=== PATIENT | male | born 1950 | race African-American/Black ===

== ENCOUNTER 2019-09-24 12:26 | Outpatient (CLI) | payer MEDICARE, SELFPAY ==
--- NOTE | ~2019-09-24 | US_ITS ---
EXAMINATION: US right upper quadrant EXAM DATE: 09/24/2019 13:34 INDICATION: Right upper quadrant pain, emesis. TECHNIQUE: Multiple grayscale and Doppler images of the abdomen right upper quadrant were obtained (b y a technologist who performed the scan) and subsequently reviewed. There is no prior study for tomi brooks. FINDINGS: The pancreatic head and body are normal in appearance. The pancreatic tail is not visualized. There is echogenic liver parenchyma, hepatic steatosis. There are no focal liver lesions identified. Th ere is no evidence of intrahepatic biliary duct dilation. Portal venous flow was seen in the hepatop edal, normal direction and has normal Doppler waveform. No right-sided hydronephrosis. Common bile duct measures 9 mm, which is normal. The gallbladder wall is normal in thickness, with ex pected amount of distention. No sonographic evidence of pericholecystic fluid. There is a 1.2 cm fo cus causing shadowing in along the bladder neck, cholelithiasis. Technologist performing exam report s patient did not demonstrate sonographic Coy's sign. Please note that this sign is less reliable in patients who have received pain medication. IMPRESSION: 1. Cholelithiasis. 2. Hepatic steatosis. Reviewed, dictated and finalized at location A.
[2019-09-24 12:52] LABS: Basophils Percent Auto 0.3 % (0.2-1.2); Eosinophils Absolute Auto 0.1 K/mm3 (0-0.3); Eosinophils Percent Auto 1.1 % (0-4.4); Hematocrit 44.7 % (42.0-52.0); Hemoglobin 15.1 g/dL (14.0-18.0); Immature Granulocyte Absolute 0.02 K/mm3 (0.00-0.031); Immature Granulocyte Percent A 0.3 % (0-0.5); Lymphocytes Percent Auto 32.5 % (18.3-44.2); Mean Corpuscular HGB Conc 33.8 g/dl (32-36); Mean Corpuscular Hemoglobin 29.4 pg (26-34); Monocytes Absolute Auto 0.5 K/mm3 (0.1-0.6); Monocytes Percent Auto 6.9 % (2.6-8.5); Neutrophils Absolute Auto 4.2 K/mm3 (1.3-6.7); Neutrophils Percent Auto 58.9 % (45.5-73.1); Platelet Count Result 226 k/mm3 (150-375); Red Blood Count 5.14 M/mm3 (4.6-6.20); Red Cell Distribution Width 14.2 % (11.5-14.5); White Blood Count 7.1 K/mm3 (4.5-10.0)
[2019-09-24 13:07] LABS: Amylase 69 U/L (30-110)
[2019-09-24 13:09] LABS: Lipase 22 U/L (23-300)
== END 2019-09-24 12:27 | disposition home or self-care (01) ==
PROVIDERS: PCP Internal Medicine; Visit Provider Internal Medicine
DX: R10.11 Right upper quadrant pain (principal); R11.2 Nausea with vomiting, unspecified; K80.20 Calculus of gallbladder without cholecystitis without obstruction; K76.0 Fatty (change of) liver, not elsewhere classified
CPT/HCPCS: 36415; 76705; 82150; 83690; 85025

== ENCOUNTER 2019-09-28 12:01 | Outpatient (CLI) | payer MEDICARE, SELFPAY ==
--- NOTE | ~2019-09-28 | NM_ITS ---
EXAMINATION: NM hepatobiliary w pharm DATE: 09/28/2019 14:49 INDICATION: Hepatic steatosis. Cholelithiasis. COMPARISON: 11/15/16 TECHNIQUE: 4.8 mCi Tc-99m mebrofenin (Choletec) was administered intravenously. Scintigraphic images of the abdomen were obtained for one hour. 2.4 mcg sincalide (Kinevac) was administered by slow intr avenous infusion, and imaging was continued for 30 minutes. Gallbladder ejection fraction was calcula ju by the technologist. FINDINGS: There is normal clearance of radiotracer from the blood pool. There is homogeneous tracer uptake by t he liver. Activity progresses to the gallbladder and bowel. The gallbladder ejection fraction (GBEF) is 79% (normal 10-90%, but most patient with gallbladder dysfunction have GBEF < 35% which does over lap with the normal range). IMPRESSION: 1. Normal hepatobiliary scan. Reviewed, dictated and finalized at location A.
== END 2019-09-28 12:02 | disposition home or self-care (01) ==
LOC: ANHIMG 12:10
PROVIDERS: PCP Internal Medicine; Visit Provider Internal Medicine
DX: K80.20 Calculus of gallbladder without cholecystitis without obstruction (principal); K76.0 Fatty (change of) liver, not elsewhere classified
CPT/HCPCS: 78227; A9537; J2805

== ENCOUNTER 2019-12-08 12:53 | Outpatient (CLI) | payer MEDICARE, SELFPAY ==
--- NOTE | 2019-12-08 12:55 | ECG_ITS ---
Measurements Intervals [place] Rate: 56 P: 110 TX: 192 QRS: -8 QRSD: 98 T: 191 QT: 435 QTc: 421 Interpretive Statements SINUS BRADYCARDIA T WAVE ABNORMALITY IN LATERAL LEADS- CONSIDER ISCHEMIA BASELINE ARTIFACT- I, II, AVR ABNORMAL ECG Electronically Signed On 12-08-2019 13:20:59 CDT by George William D.O.
[2019-12-08 13:32] LABS: Alanine Aminotransferase 21 U/L (4-50); Albumin Level 4.1 g/dL (3.5-5.1); Alkaline Phosphatase 79 U/L (38-126); Amylase 87 U/L (30-110); Aspartate Amino Transferase 28 U/L (17-59); Bilirubin,Total 0.8 mg/dL (0.2-1.3); Blood Urea Nitrogen 19 mg/dL (9-20); Calcium 9.1 mg/dL (8.4-10.2); Carbon Dioxide 30 mmol/L (22-30); Chloride 105 mmol/L (98-107); Estimated Glomerular Filt Rate 57; Glucose 149 mg/dL (75-110); Lipase 31 U/L (23-300); Potassium 3.6 mmol/L (3.4-5.0); Sodium 139 mmol/L (137-145)
== END 2019-12-08 12:54 | disposition home or self-care (01) ==
LOC: ANHSURGERY 12:55
PROVIDERS: Anesthesiology; PCP Internal Medicine; Visit Provider Surgery
DX: K80.10 Calculus of gallbladder with chronic cholecystitis without obstruction (principal); I10 Essential (primary) hypertension; E11.9 Type 2 diabetes mellitus without complications; Z79.4 Long term (current) use of insulin; R94.31 Abnormal electrocardiogram [ECG] [EKG]
CPT/HCPCS: 36415; 80048; 80076; 82150; 83690; 86850; 86900; 86901; 93005

== ENCOUNTER 2019-12-11 00:14 | Outpatient (CLI) | payer MEDICARE, SELFPAY ==
[2019-12-11 15:54] LABS: SARS-CoV-2 RNA PCR Negative
== END 2019-12-11 00:15 | disposition home or self-care (01) ==
LOC: ANHCOVIDDT 00:14
PROVIDERS: PCP Internal Medicine; Visit Provider Surgery
DX: Z01.812 Encounter for preprocedural laboratory examination (principal); Z20.828 Contact with and (suspected) exposure to other viral communicable diseases
CPT/HCPCS: 87635; C9803; U0003

== ENCOUNTER 2019-12-14 03:23 | Day surgery (SDC) | payer MEDICARE, SELFPAY ==
[2019-12-07 09:49] VITALS: BMI 31.4
[2019-12-14] VITALS (10 sets, daily range): BP systolic 138–167; BP diastolic 63–74; PULSE 43–58; RESP 16–24; TEMP 36.4–36.7; O2SAT 94–100
[2019-12-14] MEDS: LACTATED RINGERS 1,000 ML 30 ML IV CONT ×2 (10:59→13:14)
[2019-12-14 11:13] LABS: Glucose Point of Care 129 (65-105)
[2019-12-14] MEDS: IBUPROFEN IV 800 MG/200 ML 800 MG/200 ML BAG 400 MG IVPB (11:38)
--- NOTE | 2019-12-14 12:01 | WPDANESEPPF ---
Anes - Initial Pre Proc Eval Procedure: Operation Date: 12/14/19 12:00 Proposed Procedures p Laparoscopic Cholecystectomy, Possible Open - Brian Olguin DO Date/Time: 12/14/19 12:01 Surgeon: Brian Olguin DO Pre Op Diagnosis: Symptomatich Cholelithiasis Patient Data Age: 69 Gender: M Height: 6 ft 4 in Weight: 108.5 kg Last Vital Signs Temp 36.7 C 12/14/19 10:45 Pulse 54 L 12/14/19 10:45 Resp 20 12/14/19 10:45 BP 161/63 H 12/14/19 10:45 Pulse Ox 100 12/14/19 10:45 Allergies Allergy/AdvReac Type Severity Reaction Status Date / Time No Known Allergies Allergy Verified 12/14/19 10:27 Home Medications Medication Instructions Recorded Confirmed Type diltiazem HCl 360 mg capsule,24 360 mg PO DAILY #90 cap 05/18/19 12/14/19 Rx hr,extended release aspirin 81 mg tablet,delayed 81 mg PO DAILY 05/19/19 12/07/19 History release vitamin B complex 1 tablet PO DAILY 05/19/19 12/07/19 History blood sugar diagnostic #100 each 06/10/19 11/11/19 Rx indapamide 2.5 mg tablet 2.5 mg PO DAILY #90 tablet 08/10/19 12/07/19 Rx blood sugar diagnostic #100 each 08/20/19 11/11/19 Rx blood-glucose meter #1 each 08/20/19 11/11/19 Rx lancets 31 gauge #100 each 08/20/19 11/11/19 Rx sildenafil (pulm.hypertension) 20 20 mg PO DAILY PRN #100 tablet 08/20/19 12/07/19 Rx mg tablet omega-3 fatty acids 1,000 mg 1,000 mg PO DAILY 09/30/19 12/07/19 History capsule ondansetron 8 mg disintegrating 8 mg PO QID PRN #30 tablet 10/21/19 12/07/19 Rx tablet pantoprazole 40 mg tablet,delayed 40 mg PO QAM #90 tablet 10/21/19 12/07/19 Rx release atorvastatin 40 mg PO DAILY 12/07/19 12/07/19 History insulin degludec [Tresiba 66 unit SUB-Q DAILY 12/07/19 12/14/19 History FlexTouch U-200] lisinopril 40 mg PO DAILY 12/07/19 12/07/19 History metformin 1,000 mg PO QPM 12/07/19 12/07/19 History Laboratory Tests 12/14/19 10:53 POC Capillary Glucose 129 mg/dl H mg/dl (65-105) Patient hx anesthesia problems: none Family hx anesthesia problems: none PMFSH Past Medical History Medical History Abdominal pain Abnormal finding of blood chemistry, unspecified Benign essential hypertension BMI 30.0-30.9,adult BPH (benign prostatic hyperplasia) Diabetes mellitus type 2, insulin dependent Encounter for Medicare annual wellness exam Encounter for routine adult health examination without abnormal findings Encounter for special screening examination for neoplasm of prostate Erectile dysfunction Gout Mixed hyperlipidemia Nausea and vomiting On jail drug therapy Surgical History Surgical History History of carpal tunnel surgery of left wrist History of carpal tunnel surgery of right wrist History of knee replacement both knees right was in 2011 left was in 2013 Family History Family History Sibling Family history of diabetes mellitus in first degree relative Diabetes mellitus Sibling Cancer Other Hypertension Social History Social History Smoking status: Never smoker Alcohol intake: current Substance use: never Gender identity (if verbalized by the patient): Male Anes - Eval Final PreProcedure Day of Procedure 12/14/19 12:01 Patient weight: overweight Heart: regular rate and rhythm Lungs: clear to auscultation Airway: Mallampati scale class II Neurological: alert and oriented Last oral intake: >/= 8 hours ASA classification: III Emergent: no Anesthetic plan: proceed Anesthesia type and monitoring: general ETT and standard monitoring Informed Consent: The patient's anesthetic plan and its attendant risks and benefits were discussed with the patient/family/POA. Questions were solicited and answers provided to the satisfaction of the patien
--- NOTE | 2019-12-14 12:12 | PM.IMHP ---
H&P: HPI History of Present Illness Chief complaint: Symptomatich Cholelithiasis Narrative: Raghavendra Nogueira is a 69 year old male who presents for laparoscopic cholecystectomy. He previously had a severe attack of pain with nausea and vomiting. U/s showed cholelithiasis. Review of Systems Review of Systems: All systems reviewed & are unremarkable except as noted in HPI and below PMFSH Past Medical History Medical History Abdominal pain Abnormal finding of blood chemistry, unspecified Benign essential hypertension BMI 30.0-30.9,adult BPH (benign prostatic hyperplasia) Diabetes mellitus type 2, insulin dependent Encounter for Medicare annual wellness exam Encounter for routine adult health examination without abnormal findings Encounter for special screening examination for neoplasm of prostate Erectile dysfunction Gout Mixed hyperlipidemia Nausea and vomiting On terminal carman drug therapy Surgical History Surgical History History of carpal tunnel surgery of left wrist History of carpal tunnel surgery of right wrist History of knee replacement both knees right was in 2011 left was in 2013 Family History Family History Sibling Family history of diabetes mellitus in first degree relative Diabetes mellitus Sibling Cancer Other Hypertension Social History Social History Smoking status: Never smoker Alcohol intake: current Substance use: never Gender identity (if verbalized by the patient): Male Meds Home Medications and Allergies Home Medications Medication Instructions Recorded Confirmed Type diltiazem HCl 360 mg capsule,24 360 mg PO DAILY #90 cap 05/18/19 12/14/19 Rx hr,extended release aspirin 81 mg tablet,delayed 81 mg PO DAILY 05/19/19 12/07/19 History release vitamin B complex 1 tablet PO DAILY 05/19/19 12/07/19 History blood sugar diagnostic #100 each 06/10/19 11/11/19 Rx indapamide 2.5 mg tablet 2.5 mg PO DAILY #90 tablet 08/10/19 12/07/19 Rx blood sugar diagnostic #100 each 08/20/19 11/11/19 Rx blood-glucose meter #1 each 08/20/19 11/11/19 Rx lancets 31 gauge #100 each 08/20/19 11/11/19 Rx sildenafil (pulm.hypertension) 20 20 mg PO DAILY PRN #100 tablet 08/20/19 12/07/19 Rx mg tablet omega-3 fatty acids 1,000 mg 1,000 mg PO DAILY 09/30/19 12/07/19 History capsule ondansetron 8 mg disintegrating 8 mg PO QID PRN #30 tablet 10/21/19 12/07/19 Rx tablet pantoprazole 40 mg tablet,delayed 40 mg PO QAM #90 tablet 10/21/19 12/07/19 Rx release atorvastatin 40 mg PO DAILY 12/07/19 12/07/19 History insulin degludec [Tresiba 66 unit SUB-Q DAILY 12/07/19 12/14/19 History FlexTouch U-200] lisinopril 40 mg PO DAILY 12/07/19 12/07/19 History metformin 1,000 mg PO QPM 12/07/19 12/07/19 History Allergies Allergy/AdvReac Type Severity Reaction Status Date / Time No Known Allergies Allergy Verified 12/14/19 10:27 Vital Signs Vital Signs - 24 hr 12/14/19 10:45 Temperature 36.7 C Pulse Rate 54 L Respiratory Rate 20 Blood Pressure 161/63 H Pulse Oximetry 100 Exam Const: General: alert; No acute distress Orientation/consciousness: patient oriented x3 Limitations: no limitations HENMT: Head: normocephalic and atraumatic Ears: hearing grossly normal bilaterally General nose exam: Normal external nose present and Normal nares present Mouth: Yes Normal oral and palatal mucosa present and Yes moist mucous membranes Eyes: General: appearance normal, both eyes and all related structures Conjunctivae: conjunctivae normal Sclera: sclerae normal Pupils: Equal, round and reactive pupils present EOM: EOMs intact bilaterally Neck: Neck: normal visual inspection, full ROM, no lymphadenopathy, supple and no JVD Lymphatic: no lymphadenopathy
[2019-12-14] MEDS: ceFAZolin 2 GM/D5W 50 ML 2 GM/50 ML BAG IVPB (12:21)
[2019-12-14] MEDS: BUPIVACAINE/EPINEPHRINE 0.5% 30 ML VIAL INFILTRATE (12:45)
--- NOTE | 2019-12-14 13:33 | PM.PROC ---
Procedure Note - Detailed Date of procedure: 12/14/19 Pre-op diagnosis: Symptomatic Cholelithiasis Post-op diagnosis: same Procedure performed: Laparoscopic Cholecystectomy Description of procedure: Procedure as well as risks, benefits, and alternatives were discussed with patient. Written consent was obtained and placed in chart prior to procedure. The patient was brought back to surgical suite. Patient was placed in supine position on operating table. Time-out was done to confirm patient and procedure. Patient was then intubated by the anesthesia department. Abdomen was prepped and draped in sterile fashion using chlorhexidine prep. 0.5% bupivacaine with epinephrine was infiltrated at each site of incision. A 5 millimeter incision was made near the umbilicus, and a 5 millimeter Optiview trocar was advanced through the abdominal layers under direct visualization. Once inside the abdominal cavity, carbon dioxide was insufflated to create a pneumoperitoneum. The camera was inserted and the abdomen was inspected. No immediate abnormalities were identified. The patient was placed in reverse Trendelenburg position and rotated slightly to the left. An 11 millimeter incision was made in the subxiphoid region, and an 11 millimeter trocar was inserted under direct visualization. Two 5 millimeter incisions were made in the right upper quadrant, and two 5 millimeter trocars were inserted under direct visualization. The gallbladder was identified and grasped at the fundus and retracted superiorly. It was then grasped at the infundibulum retracted laterally. Careful dissection around the neck of the gallbladder was performed using blunt dissection with a [place] grasper and hook electrocautery. The cystic duct was identified, and a window was created behind it. The cystic artery was also identified and a window was created behind it. The critical view of safety was identified, visualizing the cystic duct running directly into the neck of the gallbladder, and the cystic artery running directly into the wall of the gallbladder. A 5 millimeter clip database programmer was then used to place 2 clips proximally and 1 clip distally on both the cystic duct and cystic artery. They were then both transected using endoscopic scissors. Once safely away from the emory hepatitis, the gallbladder was dissected free from the liver bed using hook electrocautery. Hemostasis was achieved along the way. The gallbladder was removed completely and then removed through the subxiphoid port. The liver bed was then inspected. Hemostasis appeared adequate, and our clips appeared secure. The area was gently irrigated with sterile saline. No other abnormalities were seen. The patient was flattened out in bed, and 1 final inspection was made around the abdominal cavity. The subxiphoid port was removed, and a Jose Carlin cone was used to approximate the fascia with an 0-Vicryl simple interrupted suture. The remaining ports were then removed under direct visualization, the camera was removed, and the pneumoperitoneum was released. The skin of the incisions was approximated using 4-0 Monocryl subcuticular sutures. Exofin glue was applied on top. The patient was then awakened from anesthesia, extubated, and transferred to recovery. Anesthesia: GETA and local (0.5% bupivicaine with epi) Surgeon: Brian Olguin DO Estimated blood loss (mL): 5 Drains: No Packing: No Pathology: yes Complications: No immediate complications Condition: stable (Patient tolerated procedure well, and is currently resting comfortably in recovery.) Disposition: same day Findings: Laparoscopic cholecystectomy was performed. The gallbladder appeared dilated and enlarged. The cystic duct appeared normal in size. There were a few pericholecystic adhesions, but otherwise no significant abnormalities. The gallbladder was removed and sent to the lab for pathology.
[2019-12-14 13:40] LABS: Glucose Point of Care 108 (65-105)
== END 2019-12-14 16:40 | disposition home or self-care (01) ==
PROVIDERS: PCP Internal Medicine; Visit Provider Surgery
PROC: 0FT44ZZ Resection of Gallbladder, Percutaneous Endoscopic Approach (ICD-10-PCS; CPT 47562; principal; 2019-12-14 12:00)
DX: K80.10 Calculus of gallbladder with chronic cholecystitis without obstruction (principal); I10 Essential (primary) hypertension; E11.9 Type 2 diabetes mellitus without complications; N40.0 Benign prostatic hyperplasia without lower urinary tract symptoms; M10.9 Gout, unspecified; E78.2 Mixed hyperlipidemia; N52.9 Male erectile dysfunction, unspecified; Z79.4 Long term (current) use of insulin; Z79.84 Long term (current) use of oral hypoglycemic drugs; Z79.82 Long term (current) use of aspirin
CPT/HCPCS: 47562; 88304; A9270; J0131; J0690; J1100; J1741; J2250; J2405; J2704; J2710; J7030; J7120

== ENCOUNTER 2021-05-23 09:49 | Outpatient (CLI) | payer MEDICARE, SELFPAY ==
--- NOTE | 2021-05-23 11:02 | ECG_ITS ---
Measurements Intervals [place] Rate: 60 P: RI: 0 QRS: -9 QRSD: 99 T: 188 QT: 441 QTc: 441 Interpretive Statements SINUS OR ECTOPIC ATRIAL RHYTHM ATRIAL PREMATURE COMPLEXES DELAYED PRECORDIAL R/S TRANSITION ST-T WAVE ABNORMALITY IN LAT/HIGH LAT LEADS- CONSIDER ISCHEMIA BASELINE ARTIFACT- I, II, AVR, AVL, V3-V6 ABNORMAL ECG Electronically Signed On 05-23-2021 11:57:27 BAGGAGE CLERK by George William D.O.
[2021-05-23 11:30] LABS: Basophils Percent Auto 0.5 % (0.2-1.2); Eosinophils Absolute Auto 0.2 K/mm3 (0-0.3); Eosinophils Percent Auto 2.8 % (0-4.4); Hematocrit 43.2 % (42.0-52.0); Hemoglobin 14.4 g/dL (14.0-18.0); Immature Granulocyte Absolute 0.01 K/mm3 (0.00-0.031); Immature Granulocyte Percent A 0.2 % (0-0.5); Lymphocytes Absolute Auto 1.93 K/mm3 (0.9-3.2); Lymphocytes Percent Auto 32.3 % (18.3-44.2); Mean Corpuscular HGB Conc 33.3 g/dl (32-36); Mean Corpuscular Hemoglobin 29.9 pg (26-34); Mean Corpuscular Volume 89.6 fl (80-100); Mean Platelet Volume 11.8 fl (7.4-10.4); Monocytes Absolute Auto 0.5 K/mm3 (0.1-0.6); Neutrophils Absolute Auto 3.3 K/mm3 (1.3-6.7); Neutrophils Percent Auto 55.2 % (45.5-73.1); Platelet Count Result 253 k/mm3 (150-375); Red Blood Count 4.82 M/mm3 (4.6-6.20)
[2021-05-23 11:42] LABS: Partial Thromboplastin Time 25.8 SECONDS (22.3-36.8)
[2021-05-23 11:45] LABS: Alanine Aminotransferase 21 U/L (4-50); Albumin Level 4.4 g/dL (3.5-5.1); Alkaline Phosphatase 77 U/L (38-126); Anion Gap 6 mmol/L (8-16); Aspartate Amino Transferase 27 U/L (17-59); Bilirubin,Total 0.6 mg/dL (0.2-1.3); Blood Urea Nitrogen 22 mg/dL (9-20); Calcium 9.7 mg/dL (8.4-10.2); Carbon Dioxide 33 mmol/L (22-30); Chloride 101 mmol/L (98-107); Estimated Glomerular Filt Rate 56; Glucose 91 mg/dL (65-110); Potassium 3.7 mmol/L (3.4-5.0); Sodium 140 mmol/L (137-145)
== END 2021-05-23 09:50 | disposition home or self-care (01) ==
LOC: ANHSURGERY 09:53
PROVIDERS: PCP Internal Medicine; Visit Provider Urology
DX: C61 Malignant neoplasm of prostate (principal); I10 Essential (primary) hypertension; Z01.818 Encounter for other preprocedural examination
CPT/HCPCS: 36415; 80053; 85025; 85610; 85730; 87077; 87086; 87088; 87186; 93005

== ENCOUNTER 2021-06-06 01:41 | Day surgery (SDC) | payer MEDICARE, SELFPAY ==
[2021-05-23 10:16] VITALS: BP 166/83; PULSE 59; RESP 18; TEMP 37.1; O2SAT 99; BMI 28.5
--- NOTE | 2021-05-23 10:42 | PC.NURSE ---
Report to the Outpatient Waiting Room, entrance under the green pavilion located off [facility], at time ___6:00AM____ on date __06/06/21 . OR Time: ___7:30AM . - You and your visitor will be asked a series of questions to screen for COVID 19 for your protection. - A mask is required within the hospital. - Only one visitor is allowed at this time. Patient visitors will be guided where to wait when not with patient. Preoperative COVID Testing Requirements: No COVID Test needed if: (proof is required; if not received patient will have Rapid Test prior to entry) - Patient has received COVID Vaccine at least 14 days prior to procedure date or - Patient has positive COVID test result within last 90 days of surgery date. COVID Test needed if above criteria is not met If not COVID vaccinated a COVID test must be conducted within 72 hours of surgery and patient is asked to isolate self from time of testing until procedure. You will go to the [facility] for your COVID testing. The [facility] is located at the corner of [address] [facility]. You will only be called if COVID results are positive and your surgeon may reschedule your elective surgery date. Patients may have clear liquids (water, carbonated beverages, clear teas, apple juice) until 3 hours prior to surgery with a maximum of 20 ounces. - No food from midnight until time of surgery 4:30AM - Infants may have breast milk until 4 hours before surgery, infant formula 6 hours prior to surgery. - Children will be allowed to drink immediately following surgery. If applicable, please bring a bottle or sippy cup to assist with drinking. Juice, water, soda, and popsicles are readily available. For infants on formula, please bring formula the day of surgery. Pacifiers are allowed. Take the following medications with a SIP of water the morning of surgery: DILTIAZEM, LEVOTHYROXINE Medications to discontinue per physician ALL VITAMINS/SUPPLEMENTS 3 DAYS PRE-OP, ASPIRIN PER DR GARLAND Date to take last dose Please no make-up, nail arabic, hairspray, perfume, deodorant, or body powder the day of surgery. No jewelry (including any body piercings) or valuables the day of surgery, leave them at home. Please take a shower or bath the night before, or the morning of, surgery with an antibacterial soap. Wear comfortable, loose fitting clothing. Children are encouraged to wear pajamas. - Jewelry must be removed prior to entering the operating room. Rings and piercings that are not removed may be cut off. - The hospital will not accept responsibility for valuables. - Please leave all valuables, including medications, at home the day of surgery. If you are going home after surgery, a licensed shuttle driver must drive you home. - NO public transportation without another adult. - We recommend that an adult stay with you for 24 hours following discharge. - We also recommend that you do not drive, make important decision, drink alcoholic beverages, or take any drugs that were not prescribed by your health care provider for at least 24 hours after your discharge time. For Pediatric surgeries, we recommend two adults accompany the child home (only one inside the building at this time). Follow any additional instructions given to you from your surgeon. Telephone instructions given to ___PATIENT AND WIFE and asked if any additional questions and then verbalized understanding. Patient advised to call surgeon office or pre surgery nurse liaison [phone] if any additional questions.
--- NOTE | 2021-06-05 13:11 | WPDANESEPPF ---
Anes - Initial Pre Proc Eval Procedure: Operation Date: 06/06/21 07:30 Proposed Procedures p Robotic Assisted Nerve Sparing Prostatectomy With Possible Pelvic Lymph Node Dissection - Bennie Gilmore MD Date/Time: 06/05/21 13:11 Surgeon: Bennie Gilmore MD Pre Op Diagnosis: Prostate Cancer Patient Data Age: 71 Gender: M Height: 1.93 m Weight: 106.4 kg Last Vital Signs Temp 37.1 C 05/23/21 10:16 Pulse 59 L 05/23/21 10:16 Resp 18 05/23/21 10:16 BP 166/83 H 05/23/21 10:16 Pulse Ox 99 05/23/21 10:16 Allergies Allergy/AdvReac Type Severity Reaction Status Date / Time No Known Allergies Allergy Verified 06/06/21 07:19 Home Medications Medication Instructions Recorded Confirmed Type aspirin 81 mg tablet,delayed 81 mg PO DAILY 05/19/19 06/06/21 History release vitamin B complex 1 tablet PO DAILY 05/19/19 06/06/21 History blood sugar diagnostic #100 each 08/20/19 06/06/21 Rx blood-glucose meter #1 each 08/20/19 06/06/21 Rx sildenafil (pulm.hypertension) 20 20 mg PO DAILY PRN #100 tablet 08/20/19 06/06/21 Rx mg tablet omega-3 fatty acids 1,000 mg 1,000 mg PO DAILY cap 04/25/20 06/06/21 History capsule pen needle, diabetic 32 gauge x See Rx Instructions .ROUTE 07/25/20 06/06/21 Rx 1/4 .COMPLEX #100 syringe blood sugar diagnostic #100 ea 08/29/20 06/06/21 Rx lancets 30 gauge #100 ea 10/26/20 06/06/21 Rx atorvastatin 40 mg PO QAM 05/23/21 06/06/21 History indapamide 2.5 mg PO QAM 05/23/21 06/06/21 History insulin degludec 66 unit SUB-Q QAM 05/23/21 06/06/21 History levothyroxine 112 mcg PO QAM 05/23/21 06/06/21 History lisinopril 80 mg PO QAM 05/23/21 06/06/21 History metformin 1,000 mg PO HS 05/23/21 06/06/21 History diltiazem HCl 360 mg capsule,24 See Rx Instructions .ROUTE 05/24/21 06/06/21 Rx hr,extended release .COMPLEX #90 capsule cephalexin 500 mg PO Q12H #10 cap 06/07/21 Rx docusate sodium [Colace] 100 mg PO BID #10 cap 06/07/21 Rx hydrocodone-acetaminophen 1 tablet PO Q6H PRN #20 tablet 06/07/21 Rx hyoscyamine sulfate [Anaspaz] 0.125 mg SUBLINGUAL Q4H PRN #20 06/07/21 Rx tablet Patient hx anesthesia problems: none Family hx anesthesia problems: none Results Review: All pre-operative results and documents have been reviewed as part of the pre-operative evaluation. [facility] Past Medical History Medical History (Updated 06/07/21 @ 08:07 by Bennie Gilmore MD) Benign essential hypertension BMI 30.0-30.9,adult BPH (benign prostatic hyperplasia) Cataract CKD (chronic kidney disease) Colon cancer screening Diabetes mellitus type 2, insulin dependent Elevated PSA Encounter for Medicare annual wellness exam Encounter for routine adult health examination with abnormal findings Encounter for routine adult health examination without abnormal findings Encounter for special screening examination for neoplasm of prostate Erectile dysfunction Gout Hypothyroidism (acquired) Mixed hyperlipidemia On intermediate card tender drug therapy Surgical History Surgical History (Reviewed 01/19/21 @ 08:59 by Floridalma Riggs [facility]) History of carpal tunnel surgery of left wrist History of carpal tunnel surgery of right wrist History of knee replacement both knees right was in 2011 left was in 2013 S/P cholecystectomy Family History Family History Sibling Family history of diabetes mellitus in first degree relative Diabetes mellitus Sibling Cancer Other Hypertension Social History Social History Smoking status: Never smoker Alcohol intake: current Substance use: never Living arrangements: with family Additional living arrangements comments: Gender identity (if verbalized by the patient): Male Spiritual care concerns: No Anes - Eval Final PreProcedure Day of Procedure 06/05/21 13:11 Patient weight: overweight
[2021-06-06] VITALS (21 sets, daily range): BP systolic 135–167; BP diastolic 56–84; PULSE 60–73; RESP 8–28; TEMP 36.5–37; O2SAT 95–100
[2021-06-06] MEDS: LACTATED RINGERS 1,000 ML 30 ML IV CONT ×2 (06:52→12:49)
--- NOTE | 2021-06-06 07:05 | WPDHPUPDATE1 ---
History and Physical Update Update Date/Time: 06/06/21 07:05 History and Physical has been reviewed, including an updated exam of the patient. There are NO changes in the patient's condition. Risks, benefits, and alternatives have been discussed and questions answered. Patient agrees to proceed with procedure. Proceed with robotic assist nerve sparing prostatectomy with possible plnd
[2021-06-06 07:08] LABS: Glucose Point of Care 109 mg/dl (65-105)
[2021-06-06] MEDS: ceFAZolin 2 GM/D5W 50 ML 2 GM/50 ML BAG IVPB (07:25)
[2021-06-06] MEDS: ceFAZolin SODIUM 1 GM VIAL IV PUSH (11:29)
--- NOTE | 2021-06-06 12:02 | W.PM.PROC2 ---
Procedure Note - Detailed Date of Procedure 06/06/21 Pre-op Diagnosis Prostate Cancer Post-op Diagnosis same Procedure Performed Robotic assisted nerve-sparing prostatectomy with left pelvic lymph node dissection Surgeon Bennie Gilmore MD Anesthesia general Description of Procedure Patient was taken to the operative suite and correctly identified. Once anesthesia was obtained he was placed in low-lying dorsal lithotomy position and prepped draped usual sterile fashion. Eighteen Uzbek Corral was placed with 20 cc in the balloon. Supraumbilical incision was made and carried down to the rectus fascia. Veress needle was inserted in the abdomen insufflated 15 mmHg pressure. Camera trocar was then placed under direct vision. Remaining trocars were placed in appropriate locations. Patient was placed in steep Trendelenburg position. All pressure points had been padded. The robot was docked. He did have some adhesions along the left colon which were taken down. A posterior approach was then performed. The seminal vesicles and vas were dissected out in their entirety. Plane between the prostate and rectum was developed. Bladder was then taken down. Dorsal venous complex was isolated and ligated using 0 Vicryl in secured to the pubic bone. Bilateral space of Retzius was developed with the puboprostatic ligaments taken down prior to dorsal venous complex isolation. Anterior approach was then performed to expose the bladder neck. He has a large median lobe. The lobe was dissected out in its entirety. The posterior plane was developed and entered exposing the seminal vesicles and vas which were dissected previously. Due to the median lobe his bladder neck is slightly enlarged. We did reconstructed using 2-0 Vicryl in interrupted fashion. This was performed with lateral sutures. Bilateral nerve-sparing was then performed. The pedicles were clipped. Prostate was lifted off the rectum. Dorsal venous complex was transected. Urethra was also transected. Specimen was placed in Endo-Catch bag. Left pelvic lymph node dissection was then performed with the boundaries being the external iliac vein, obturator nerve, Pete's ligament, and the bifurcation of the vessels. Clips were placed proximally and distally. Specimen was also placed in Endo-Catch bag. It was noted that there was some tissue near the right neurovascular bundle which was very close to the prostate which we took off and sent as a separate specimen. All lap count needle count sponge counts were correct at this point. We then went ahead and did a Grant stitch using 0 Vicryl. The urethra was then anastomosed to the bladder neck with good approximation mucosa. V lock suture was used in running fashion. Eighteen Uzbek Corral was placed inflated with 10 cc in the balloon. This was secured. The robot was then undocked. Specimen was brought out through the midline incision. Rectus fascia was closed using 0 Vicryl in a running fashion. Subcuticular stitches were placed. Incisions were anesthetized 1% lidocaine. All lap count needle count sponge counts were again correct. Patient is taken recovery stable condition. Estimated Blood Loss 100 Drains Yes Packing No Pathology yes Complications No immediate complications Condition stable Disposition PACU
[2021-06-06] MEDS: BUPIVACAINE HCL 0.5% PF 30 ML VIAL INFILTRATE (12:10)
--- NOTE | 2021-06-06 12:26 | SUR.OPER ---
urine light pink and clear to PACU.
[2021-06-06 12:43] LABS: Glucose Point of Care 176 mg/dl (65-105)
[2021-06-06] MEDS: fentaNYL CITRATE INJ (*CRX) 100 MCG/2 ML VIAL 25 MCG IV PUSH ×8 (13:17→15:48)
[2021-06-06 17:00] LABS: Glucose Point of Care 212 mg/dl (65-105)
[2021-06-06] MEDS: LACTATED RINGERS 1,000 ML 125 ML IV CONT (17:01)
[2021-06-06] MEDS: metFORMIN HCL 500 MG TABLET 1000 MG PO (17:51)
[2021-06-06] MEDS: HYDROcodone/acetaminophen (*CRX) 5-325 MG TABLET 2 TAB PO (19:55)
[2021-06-06 20:36] LABS: Glucose Point of Care 210 mg/dl (65-105)
[2021-06-07] MEDS: LACTATED RINGERS 1,000 ML 125 ML IV CONT ×2 (02:05→09:57)
[2021-06-07 04:15] VITALS: BP 153/69; PULSE 77; RESP 17; TEMP 35.6; O2SAT 98
[2021-06-07] MEDS: LEVOTHYROXINE SODIUM 112 MCG TABLET PO (05:52)
[2021-06-07] MEDS: HYDROcodone/acetaminophen (*CRX) 5-325 MG TABLET 1 TAB PO (05:52)
[2021-06-07] MEDS: ONDANSETRON INJ 4 MG/2 ML VIAL IV PUSH (05:53)
[2021-06-07 05:54] LABS: Hematocrit 36.9 % (42.0-52.0); Hemoglobin 12.4 g/dL (14.0-18.0)
[2021-06-07 05:59] LABS: Anion Gap 5 mmol/L (8-16); Blood Urea Nitrogen 14 mg/dL (9-20); Calcium 8.3 mg/dL (8.4-10.2); Carbon Dioxide 30 mmol/L (22-30); Chloride 101 mmol/L (98-107); Estimated CRCL calculation 64 ml/min; Estimated Glomerular Filt Rate > 60; Glucose 149 mg/dL (65-110); Potassium 3.6 mmol/L (3.4-5.0); Sodium 136 mmol/L (137-145)
[2021-06-07 07:55] LABS: Glucose Point of Care 110 mg/dl (65-105)
--- NOTE | 2021-06-07 08:06 | WPDUROPN2 ---
Progress Note: A&P Assessment and Plan (1) Prostate cancer: Code(s): C61 - Malignant neoplasm of prostate Status: Acute Assessment and Plan: Postop day 1. From robotic assisted nerve-sparing prostatectomy with left pelvic lymph node dissection. Doing well at this time. Increase activity. Possible discharge home later today with Corral catheter. Will make decision regarding DIONY based on its drainage. Subjective Subjective Date/Time Seen: 06/07/21 08:06 Post Op day: 1 (Robotic assisted nerve-sparing prostatectomy with left pelvic lymph node dissection) Principal diagnosis: Adenocarcinoma prostate Interval history: Overall doing well today without any significant complaints. Did have some mild nausea through the night. He has been afebrile Review of Systems Review of Systems: All systems reviewed & are unremarkable except as noted in HPI and below Exam Const: General: cooperative, comfortable and no acute distress Eyes: General: appearance normal, both eyes and all related structures Resp: Effort & Inspection: normal respiratory effort Cardio: Rate: regular rate Rhythm: regular rhythm GI: GI Palp: Yes Soft to palpation Urinary Catheter: Urinary Catheter: patent and draining and urine clear Objective Data Vital Signs Vital Signs: Vital Signs - 24 hr 06/06/21 12:27 06/06/21 12:30 06/06/21 12:45 Temperature 37.0 C Pulse Rate 70 65 62 Respiratory Rate 25 H 12 28 H Blood Pressure 135/72 159/84 H 167/70 H Pulse Oximetry 100 98 100 06/06/21 13:00 06/06/21 13:15 06/06/21 13:30 Temperature Pulse Rate 61 61 60 Respiratory Rate 14 8 L Blood Pressure 159/70 H 161/65 H 141/61 H Pulse Oximetry 100 100 100 06/06/21 13:48 06/06/21 14:05 06/06/21 14:20 Temperature Pulse Rate 61 62 60 Respiratory Rate 13 12 12 Blood Pressure 139/62 144/59 H 146/63 H Pulse Oximetry 100 100 98 06/06/21 14:37 06/06/21 14:55 06/06/21 15:10 Temperature Pulse Rate 62 62 63 Respiratory Rate 13 12 12 Blood Pressure 146/56 H 148/60 H 145/60 H Pulse Oximetry 100 97 100 06/06/21 15:25 06/06/21 15:40 06/06/21 16:10 Temperature 36.7 C Pulse Rate 64 65 66 Respiratory Rate 12 12 18 Blood Pressure 148/63 H 140/63 141/77 H Pulse Oximetry 99 100 96 06/06/21 16:25 06/06/21 16:55 06/06/21 17:55 Temperature 36.6 C 36.5 C 36.7 C Pulse Rate 62 65 62 Respiratory Rate 18 18 18 Blood Pressure 154/65 H 141/66 H 146/64 H Pulse Oximetry 100 98 97 06/06/21 20:22 06/06/21 23:26 06/07/21 04:15 Temperature 36.6 C 36.8 C 35.6 C L Pulse Rate 60 73 77 Respiratory Rate 17 17 17 Blood Pressure 149/67 H 139/59 L 153/69 H Pulse Oximetry 95 99 98 Intake/Output Intake/Output: Intake & Output 06/04/21 06/05/21 06/06/21 06/07/21 23:59 23:59 23:59 23:59 Intake Total 1150 1497 Output Total 975 970 Balance 175 527 Meds/Results Medications: Active Medications Generic Name Dose Route Start Last Admin Trade Name Freq PRN Reason Stop Dose Admin Hydrocodone Bitart/Acetaminophen 1 tab 06/06/21 15:57 06/07/21 05:52 Hydrocodone/Acetaminophen (*Crx) 5-325 Mg Tablet PO 1 tab Q6H PRN Administration Pain Rated 1-3 Hydrocodone Bitart/Acetaminophen 2 tab 06/06/21 15:57 06/06/21 19:55 Hydrocodone/Acetaminophen (*Crx) 5-325 Mg Tablet PO 2 tab Q6H PRN Administration Pain Rated 4-6 Atorvastatin Calcium 40 mg 06/07/21 09:00 Atorvastatin 40 Mg Tablet PO QAM JONNA Hyoscyamine 0.125 mg 06/06/21 15:57 Hyoscyamine Sulfate 0.125 Mg Tablet SUBLINGUAL Q4H PRN Bladder Spasm Lactated Ringer's 1,000 mls @ 125 mls/hr 06/06/21 15:57 06/07/21 05:48 Lr - Lactated Ringers Iv IV CONT 125 mls/hr .Q8H JONNA Infusion Indapamide 2.5 mg 06/07/21 09:00 Indapamide 2.5 Mg Tablet PO QAM JONNA Insulin Glargine 66 units 06/07/21 09:00 Insulin Glargine (*Bkc) 100 Units/Ml SUB-Q 07/07/21 08:59 QAM [facility] Ketorolac Tromethamine 15 mg 05/10
[2021-06-07] MEDS: INSULIN GLARGINE (*BKC) 100 UNITS/ML 66 UNITS SUB-Q (09:55)
[2021-06-07] MEDS: lisinopriL 20 MG TABLET 80 MG PO (09:56)
[2021-06-07] MEDS: levoFLOXacin 500 MG TABLET PO (09:56)
[2021-06-07] MEDS: ATORVASTATIN 40 MG TABLET PO (09:57)
[2021-06-07] MEDS: INDAPAMIDE 2.5 MG TABLET PO (09:57)
[2021-06-07] MEDS: HYDROcodone/acetaminophen (*CRX) 5-325 MG TABLET 2 TAB PO (10:14)
[2021-06-07 11:41] LABS: Glucose Point of Care 180 mg/dl (65-105)
[2021-06-07 14:00] VITALS: BP 159/76; PULSE 79; RESP 16; TEMP 36.7; O2SAT 99
== END 2021-06-07 16:35 | disposition home or self-care (01) ==
LOC: ANHSURGERY 06:05 → ANH3MED 16:27
PROVIDERS: PCP Internal Medicine; Visit Provider Urology
PROC: 0VT04ZZ Resection of Prostate, Percutaneous Endoscopic Approach (ICD-10-PCS; CPT 55867; principal; 2021-06-06 07:30)
DX: C61 Malignant neoplasm of prostate (principal); I12.9 Hypertensive chronic kidney disease with stage 1 through stage 4 chronic kidney disease, or unspecified chronic kidney disease; E11.22 Type 2 diabetes mellitus with diabetic chronic kidney disease; N18.9 Chronic kidney disease, unspecified; M10.9 Gout, unspecified; E03.9 Hypothyroidism, unspecified; E78.2 Mixed hyperlipidemia; Z79.82 Long term (current) use of aspirin; Z79.4 Long term (current) use of insulin; Z79.84 Long term (current) use of oral hypoglycemic drugs
CPT/HCPCS: 55866; 38571; S2900; 36415; 80048; 80053; 82948; 85014; 85018; 85025; 85610; 85730; 86850; 86900; 86901; 87077; 87086; 87088; 87186; 88305; 88307; 88309; 93005; A9270; J0330; J0690; J1815; J2250; J2270; J2405; J2704; J2710; J3010; J7030; J7120; Q9968

== ENCOUNTER 2021-06-14 10:34 | Outpatient (CLI) | payer MEDICARE, SELFPAY ==
--- NOTE | ~2021-06-14 | XR_ITS ---
EXAMINATION: XR cystogram DATE: 06/14/2021 11:14 INDICATION: Prostate cancer TECHNIQUE: Water-soluble contrast was gravity-infused through the patient's Corral catheter. Multiple fluoroscopic images were obtained. Fluoroscopy exposure time was 1.5 minutes. The DAP for this proced ure was 26.921 Gycm2. COMPARISON: None. FINDINGS: There is a small amount of extravasated contrast near the bladder base, likely extraperiton eal bladder leak. Phleboliths are noted in the pelvis. IMPRESSION: 1. Small bladder leak. Reviewed, dictated and finalized at location A. SS ANALYST IMPRESSION: 1. Small bladder leak.
== END 2021-06-14 10:35 | disposition home or self-care (01) ==
PROVIDERS: PCP Internal Medicine; Visit Provider Urology
DX: C61 Malignant neoplasm of prostate (principal); R32 Unspecified urinary incontinence
CPT/HCPCS: 51600; 74430; Q9967

== ENCOUNTER 2021-06-15 12:34 | Outpatient (CLI) | payer MEDICARE, SELFPAY ==
--- NOTE | ~2021-06-15 | XR_ITS ---
EXAMINATION: XR ankle RT 2V DATE: 06/15/2021 13:16 INDICATION: Right ankle pain. Gout. TECHNIQUE: 2 views of right ankle were obtained. COMPARISON: None. FINDINGS: Bone alignment is normal. No fracture. There is mild ankle and midfoot osteoarthritis. Ther e are enthesophytes at the posterior and plantar aspects of calcaneal tuberosity. There is ankle soft tissue swelling. IMPRESSION: 1. Mild polyarticular osteoarthritis. No evidence of inflammatory arthropathy. Reviewed, dictated and finalized at location A. MANAGER
--- NOTE | ~2021-06-15 | XR_ITS ---
EXAMINATION: XR foot RT 2V DATE: 06/15/2021 13:16 INDICATION: Right foot pain. Gout. TECHNIQUE: 2 views of right foot were obtained. COMPARISON: None. FINDINGS: Bone alignment is normal. There is a fracture of diaphysis of fourth proximal phalanx. Ther e is mild osteoarthritis of some the midfoot and interphalangeal joints. There is erosion of the late ral aspect of head of first proximal phalanx. There are enthesophytes at the posterior and plantar as pects of calcaneal tuberosity. IMPRESSION: 1. Age-indeterminate fracture of diaphysis of fourth proximal phalanx. 2. Mild polyarticular osteoarthritis. 3. Erosion of the lateral aspect of head of first proximal phalanx, which may be seen with gout. Reviewed, dictated and finalized at location A. HITE PAN DRIER TENDER IMPRESSION: 1. Age-indeterminate fracture of diaphysis of fourth proximal phalanx. 2. Mild polyarticular osteoarthritis. 3. Erosion of the lateral aspect of head of first proximal phalanx, which may b e seen with gout.
[2021-06-15 13:55] LABS: CRP 4.8 mg/dL (<1.0); Uric Acid 10.9 mg/dL (3.5-8.5)
[2021-06-15 14:43] LABS: Erythrocyte Sedimentation Rate 89 mm/hr (0-20)
== END 2021-06-15 12:35 | disposition home or self-care (01) ==
LOC: ANHIMG 12:38
PROVIDERS: PCP Internal Medicine; Visit Provider Internal Medicine
DX: M10.9 Gout, unspecified (principal); M19.071 Primary osteoarthritis, right ankle and foot
CPT/HCPCS: 36415; 73600; 73620; 84550; 85652; 86140

== ENCOUNTER 2021-06-22 09:35 | Outpatient (CLI) | payer MEDICARE, SELFPAY ==
--- NOTE | ~2021-06-22 | XR_ITS ---
EXAMINATION: XR cystogram DATE: 06/22/2021 10:32 INDICATION: Prostate cancer status post prostatectomy, prior bladder leak TECHNIQUE: Water-soluble contrast was gravity-infused through the patient's Corral catheter. Multiple fluoroscopic images were obtained. Fluoroscopy exposure time was 1.1 minutes. The DAP for this proced ure was 39.857 Gycm2. COMPARISON: 06/14/2016 FINDINGS: No bladder leak is identified. Trabeculation of the bladder wall is likely related to chron ic outlet obstruction. Phleboliths are noted in the pelvis. IMPRESSION: 1. No bladder leak identified. Reviewed, dictated and finalized at location A. TRAPPER
== END 2021-06-22 09:36 | disposition home or self-care (01) ==
LOC: ANHIMG 09:39
PROVIDERS: PCP Internal Medicine; Visit Provider Urology
DX: C61 Malignant neoplasm of prostate (principal)
CPT/HCPCS: 51600; 74430; Q9967

== ENCOUNTER 2021-08-25 11:39 | Outpatient (CLI) | payer MEDICARE, SELFPAY ==
[2021-08-25 12:58] LABS: Anion Gap 7 mmol/L (8-16); Blood Urea Nitrogen 18 mg/dL (9-20); Calcium 9.1 mg/dL (8.4-10.2); Carbon Dioxide 31 mmol/L (22-30); Chloride 105 mmol/L (98-107); Estimated Glomerular Filt Rate 56; Glucose 127 mg/dL (65-110); Potassium 3.5 mmol/L (3.4-5.0); Sodium 143 mmol/L (137-145)
== END 2021-08-25 11:40 | disposition home or self-care (01) ==
LOC: ANHLAB 11:41
PROVIDERS: PCP Internal Medicine; Visit Provider Internal Medicine
DX: I10 Essential (primary) hypertension (principal); Z79.899 Other long term (current) drug therapy
CPT/HCPCS: 36415; 80048

== ENCOUNTER 2021-09-13 12:15 | Outpatient (CLI) | payer MEDICARE, SELFPAY ==
--- NOTE | ~2021-09-13 | XR_ITS ---
EXAMINATION: XR chest 2V EXAM DATE: 09/13/2021 12:39 INDICATION: R06.2 - Wheezing, cough x 1 wk; hx of HTN, prostate CA 05/28 . TECHNIQUE: Frontal and lateral projections of the chest obtained and reviewed. There is no prior hilario dy for comparison. FINDINGS: The lungs are clear. There are no pleural effusions. The cardiomediastinal silhouette is within normal limits. There is no pneumothorax suspected. The bones and soft tissues are unremarkab le. There are cholecystectomy clips. IMPRESSION: No acute cardiopulmonary findings. Reviewed, dictated and finalized at location A. PMENT LEAD
== END 2021-09-13 12:16 | disposition home or self-care (01) ==
LOC: ANHIMG 12:19
PROVIDERS: PCP Internal Medicine; Visit Provider Internal Medicine
DX: R06.2 Wheezing (principal); R05.9 Cough, unspecified; R06.00 Dyspnea, unspecified
CPT/HCPCS: 71046

== ENCOUNTER 2021-09-18 06:06 | Inpatient (IN) | payer MEDICARE, SELFPAY ==
[2021-09-18] VITALS (17 sets, daily range): BP systolic 121–189; BP diastolic 82–131; PULSE 37–99; RESP 12–22; TEMP 35.7–37.3; O2SAT 94–100; BMI 25.8; BMI 28.3
--- NOTE | 2021-09-18 | ECHO_ITS ---
Patient Info Name: Raghavendra Nogueira Age: 71 years : 1950 Gender: Male Ht: 76 in Wt: 232 lbs BSA: 2.39 m2 HR: 74 bpm BP: 121 / 95 mmHg Heart Rhythm: Sinus Rhythm Technical Quality: Fair Exam Date: 09/18/2021 3:48 PM Exam Location: [facility] Pulmonary Patient Status: Inpatient Admit Date: 09/18/2021 Staff Ordering Physician: Anibal Amaya MD Professional Athletes Coach: Nhi Yancey RDCS Attending Provider: Rishi Cortez MD Referring Physician: Jose Luis SHERIDAN; Exam Type: CA echo doppler color flow Study Info Indications - CHF Complete two-dimensional, color flow and Doppler transthoracic echocardiogram is performed. Summary 1. Complete two-dimensional, color flow and Doppler transthoracic echocardiogram is performed. 2. Left ventricular chamber dimension is moderately enlarged. 3. Left ventricular systolic function is severely reduced, estimated at 25-30%. 4. There is moderate concentric increased left ventricular wall thickness. 5. The posterior segment is akinetic. 6. Left atrial chamber dimension is moderately enlarged. 7. The aortic valve is normal. 8. There is mild mitral valve regurgitation. Left Ventricle Left ventricular chamber dimension is moderately enlarged. Left ventricular systolic function is severely reduced, estimated at 25-30%. There is moderate concentric increased left ventricular wall thickness. The left ventricular diastolic function is grade I diastolic dysfunction. The posterior segment is akinetic. Right Ventricle Right ventricular chamber dimension is normal. Left Atria Left atrial chamber dimension is moderately enlarged. Right Atria Right atrial chamber dimension is normal. Aortic Valve The aortic valve is normal. Pulmonic Valve The pulmonic valve is normal. Mitral Valve The mitral valve has normal leaflets. There is mild mitral valve regurgitation. Tricuspid Valve The tricuspid valve leaflets are normal. Moderate pulmonary hypertension, estimated pulmonary arterial systolic pressure is 62 mmHg. Pericardium/Pleural The pericardium appears normal. Aorta The aortic root size at the sinus of Valsalva is normal. Left Ventricular Outflow Tract Name Value Normal LVOT 2D LVOT Diameter 2.0 cm LVOT Doppler LVOT Peak Gradient 2 mmHg LVOT Mean Gradient 1 mmHg LVOT VTI 14 cm LVOT VTI/AV VTI Ratio 0.7 LVOT Stroke Volume 42 ml LVOT CO 2.3 l/min LVOT CI 1.0 l/min/m2 Pulmonic Valve Name Value Normal RVOT Doppler RVOT Peak Gradient 1 mmHg PV Doppler PV Peak Gradient
--- NOTE | ~2021-09-18 | XR_ITS ---
EXAMINATION: XR chest 2V DATE: 09/18/2021 06:36 INDICATION: Cough and shortness of breath TECHNIQUE: frontal and lateral views of the chest were obtained. COMPARISON: Chest radiograph dated 09/13/2021 FINDINGS: Small bilateral pleural effusions at the posterior sulci with associated mild posterior bibasilar ate lectasis versus less likely pneumonia. No dominant or edema or pneumothorax. The cardiomediastinal si lhouette is normal. Calcified AP window lymph node consistent with old granulomatous disease. IMPRESSION: 1. Small bilateral pleural effusions with associated mild bibasilar atelectasis versus less likely pn eumonia. Reviewed, dictated and finalized at location A. IMPRESSION: 1. Small bilateral pleural effusions with associated mild bibasilar atelectasis versus less likely pneumonia.
--- NOTE | ~2021-09-18 | CT_ITS ---
EXAMINATION: CTA chest PE protocol DATE: 09/18/2021 08:49 INDICATION: Chest pain. TECHNIQUE: Computed tomography angiography (CTA) of the chest was performed with 100 mL Omnipaque-350 intravenous contrast timed to evaluate the pulmonary arteries. Coronal maximum intensity projection 3D-reconstructions were created by the technologist. Automated exposure control and iterative reconst ruction technique were employed. The dose-length product was 662.83 mGy-cm. COMPARISON: CT abdomen and pelvis 11/15/2016 FINDINGS: There is smooth septal thickening in the lungs, consistent with mild pulmonary edema. There is mild dependent atelectasis bilaterally. There is mild emphysema. There are small pleural effusion s. There is left atrial and left ventricular enlargement of the heart. No pericardial effusion. There is no pulmonary embolus. A calcified mediastinal lymph node is consistent with old granulomatous dis ease. There are changes of cholecystectomy. There is 11 mm cyst in left kidney. There is mild thoraci c spondylosis. IMPRESSION: 1. No pulmonary embolus. 2. Mild pulmonary edema. 3. Small pleural effusions. 4. Mild emphysema. 5. Left atrial and left ventricular enlargement of the heart. Reviewed, dictated and finalized at location A.
--- NOTE | 2021-09-18 06:11 | ECG_ITS ---
Measurements Intervals [place] Rate: 68 P: [place]: 0 QRS: 4 QRSD: 98 T: 196 QT: 418 QTc: 447 Interpretive Statements POOR QUALITY ECG SINUS RHYTHM WITH SINUS ARRHYTHMIA MODERATE T-WAVE ABNORMALITY, CONSIDER LATERAL ISCHEMIA [-0.1+ mV T-WAVE IN I/aVL/V5/V6] COMPARED TO ECG 05/23/2021 11:18:56 MORE BASELINE ARTIFACT NO OTHER OBVIOUS CHANGES Electronically Signed On 09-18-2021 14:20:34 CDT by Anibal Amaya M.D.
[2021-09-18 06:29] LABS: Basophils Percent Auto 0.7 % (0.2-1.2); Eosinophils Absolute Auto 0.2 K/mm3 (0-0.3); Eosinophils Percent Auto 3.3 % (0-4.4); Hematocrit 40.4 % (42.0-52.0); Hemoglobin 13.8 g/dL (14.0-18.0); Immature Granulocyte Absolute 0.01 K/mm3 (0.00-0.031); Immature Granulocyte Percent A 0.2 % (0-0.5); Lymphocytes Absolute Auto 1.77 K/mm3 (0.9-3.2); Lymphocytes Percent Auto 30.4 % (18.3-44.2); Mean Corpuscular HGB Conc 34.2 g/dl (32-36); Mean Corpuscular Hemoglobin 29.5 pg (26-34); Mean Corpuscular Volume 86.3 fl (80-100); Mean Platelet Volume 11.5 fl (7.4-10.4); Monocytes Absolute Auto 0.6 K/mm3 (0.1-0.6); Monocytes Percent Auto 9.6 % (2.6-8.5); Neutrophils Absolute Auto 3.3 K/mm3 (1.3-6.7); Neutrophils Percent Auto 55.8 % (45.5-73.1); Platelet Count Result 197 k/mm3 (150-375); Red Blood Count 4.68 M/mm3 (4.6-6.20); Red Cell Distribution Width 15.1 % (11.5-14.5); White Blood Count 5.8 K/mm3 (4.5-10.0)
[2021-09-18 06:37] LABS: Alanine Aminotransferase 19 U/L (4-50); Albumin Level 4.1 g/dL (3.5-5.1); Alkaline Phosphatase 71 U/L (38-126); Anion Gap 6 mmol/L (8-16); Aspartate Amino Transferase 26 U/L (17-59); Bilirubin,Total 0.7 mg/dL (0.2-1.3); Blood Urea Nitrogen 27 mg/dL (9-20); Calcium 8.8 mg/dL (8.4-10.2); Carbon Dioxide 27 mmol/L (22-30); Chloride 109 mmol/L (98-107); Estimated CRCL calculation 48 ml/min; Estimated Glomerular Filt Rate 52; Glucose 140 mg/dL (65-110); Potassium 3.3 mmol/L (3.4-5.0); Sodium 142 mmol/L (137-145)
[2021-09-18 07:04] LABS: Lipase 45 U/L (23-300)
[2021-09-18 07:19] LABS: NT Pro B Type Natriuretic Pept 2530 pg/mL (5-100); Troponin I 0.066 ng/mL (0.000-0.034)
[2021-09-18 07:22] LABS: Prothrombin Time 12.7 Seconds (11.1-14.7)
[2021-09-18 07:25] LABS: Partial Thromboplastin Time 24.1 SECONDS (22.3-36.8)
[2021-09-18] MEDS: FUROSEMIDE INJ 40 MG/4 ML VIAL IV PUSH ×2 (07:43→20:04)
[2021-09-18] MEDS: POTASSIUM CHLORIDE 20 MEQ TABLET 40 MEQ PO ×2 (07:44→22:44)
[2021-09-18] MEDS: ASPIRIN 81 MG CHEWABLE TABLET 324 MG PO (07:44)
[2021-09-18] MEDS: NITROGLYCERIN OINTMENT 1 INCH DOSE TRANSDERM (07:45)
--- NOTE | 2021-09-18 08:08 | ED.SOB ---
HPI - SOB/Dyspnea General Chief Complaint: Shortness of Breath/Dyspnea Stated Complaint: sob and cough x 1.5 weeks Time Seen by Provider: 09/18/21 07:01 Source: patient and RN notes reviewed Mode of arrival: ambulatory Limitations: no limitations History of Present Illness HPI Narrative: This is a 71 year old male history of DM,hypertension, hypothyroidism, prostate CA who presents for evaluation of shortness of breath. He has been having shortness of breath for 2 weeks. He states it is worse with laying flat. He also reports constant left anterior chest pain. He has associated dry cough, nasal congestion. He is currently being evaluated by his PCP for his symptoms but he was having continued shortness of breath. He denies leg swelling, fever, chills, nausea, vomiting or abdominal pain . He denies history of heart disease, CHF, or PE. Related Data Home Medications Medication Instructions Recorded Confirmed aspirin 81 mg tablet,delayed 81 mg PO DAILY 05/19/19 09/18/21 release vitamin B complex 1 tablet PO DAILY 05/19/19 09/18/21 omega-3 fatty acids 1,000 mg 1,000 mg PO DAILY cap 04/25/20 09/18/21 capsule levothyroxine 112 mcg PO QAM 05/23/21 09/18/21 lisinopril 80 mg PO QAM 05/23/21 09/18/21 cholecalciferol (vitamin D3) 50 50 mcg PO DAILY 07/03/21 09/18/21 mcg (2,000 unit) capsule atorvastatin 40 mg PO QAM 09/18/21 09/18/21 diltiazem HCl 360 mg PO DAILY 09/18/21 09/18/21 Allergies Allergy/AdvReac Type Severity Reaction Status Date / Time No Known Allergies Allergy Verified 09/18/21 06:14 Review of Systems Review of Systems: All systems reviewed & are unremarkable except as noted in HPI and below Constitutional: Constitutional: Denies chills and Denies fever(s) Cardiovascular: Cardiovascular: Reports chest pain and Denies radiating jaw, neck or arm pain Respiratory: Respiratory: Reports cough and Reports dyspnea Gastrointestinal: Gastrointestinal: Denies abdominal pain, Denies nausea and Denies vomiting Neurologic: Denies headache(s) [facility] Past Medical History Medical History (Updated 09/18/21 @ 18:28 by Francoise Perez MD) Benign essential hypertension BPH (benign prostatic hyperplasia) Cataract CKD (chronic kidney disease) Diabetes mellitus type 2, insulin dependent Elevated PSA Erectile dysfunction Gout History of prostate cancer Hypothyroidism (acquired) Mixed hyperlipidemia Vitamin D deficiency Surgical History Surgical History (Updated 09/18/21 @ 12:56 by Rishi Cortez MD) History of carpal tunnel surgery of left wrist History of carpal tunnel surgery of right wrist History of knee replacement both knees right was in 2011 left was in 2013 Hx of prostatectomy S/P cholecystectomy Family History Family History Sibling Family history of diabetes mellitus in first degree relative Diabetes mellitus Sibling Cancer Other Hypertension Social History Social History (Updated 09/18/21 @ 12:57 by Rishi Cortez MD) Social History: Patient lives with his . He drinks 2 alcoholic drinks per month on average. Lifelong nonsmoker. No history of drug use. Full code. He nominates his to be the individual would make medical decisions for him if he is unable. Smoking status: Never smoker Alcohol intake: current Drinks per week: 1 Substance use: never Additional living arrangements comments: Gender identity (if verbalized by the patient): Male Spiritual care concerns: No Exam Const: General: no acute distress and alert Nutritional Appearance: obese Orientation/consciousness: patient oriented x3 Eyes: EOM: EOMs intact bilaterally Chest: Chest palpation & inspection: normal inspection of the chest Resp: Effort & Inspection: normal respiratory effort and no retractions Auscultation: clear to auscultation bilaterally Cardio: Rate: r
[2021-09-18 08:10] LABS: D Dimer 1.09 ug/mL (<0.48)
[2021-09-18 08:32] LABS: SARS-CoV-2 RNA PCR Negative
[2021-09-18 10:05] LABS: Troponin I 0.082 ng/mL (0.000-0.034)
[2021-09-18 12:14] LABS: Glucose Point of Care 96 mg/dl (65-105)
--- NOTE | 2021-09-18 12:41 | PM.IMHP ---
H&P: HPI History of Present Illness Date/Time: PATIENT HAS BEEN ADMITTED UNDER OBSERVATION STATUS 09/18/21 12:41 Chief Complaint: Shortness of breath Narrative: 71yo male with DM, HTN and prostate cancer here for shortness of breath. Patient presents with a 1-2 week history of SOB and wheezes. Seem worse when he laid flat. He also has left sided chest pressure but is not pleuritic or palpable. No radiation. No palpitations. No history of coronary disease, CHF or PE. No odynophagia or dysphagia. No leg edema. No calf pain. No nausea, vomiting, diarrhea or abdominal pain. No new back pain, dysuria or hematuria. He does have chronic low back pain. No fever or chills. No recent use of sildenafil. No medication changes. No new [id number] medications. He has a nonproductive cough. No sore throat but does have left sinus drainage. He does not snore. No apneic spells. He does not check his blood pressure at home. BP usually well controlled in the clinic. No COVID exposures. Had his COVID booster about 1-2 months ago. He was in [place] recently and noted increasing dyspnea on exertion with chest pressure. The chest pressure appears to be chronic that waxes and wanes in severity. Because of the persistent symptoms, patient presents to the emergency room for evaluation. In the emergency room, blood pressure was 178/97 climbed to 189/131. D-dimer was positive at 1.1. Potassium slightly low at 3.3. BUN 27 and creatinine 1.6 which is close to his baseline. Troponin was elevated to 0.082. BNP was 2530. Lipase was normal. COVID test was negative. Chest x-ray shows small bilateral pleural effusions with associated mild bibasilar atelectasis. CTA showed no pulmonary emboli but did show pulmonary edema and small pleural effusion. EKG showing probably NSR with PACs and lateral T wave changes (but seen in May as well). He was treated with nitroglycerin paste, aspirin and Lasix IV. Was given potassium replacement. He was admitted for further care. Patient feeling better since admission. Review of Systems Review of Systems: All systems reviewed & are unremarkable except as noted in HPI and below REPLACED BY [facility] Past Medical History Medical History (Updated 09/18/21 @ 13:00 by Rishi Cortez MD) Benign essential hypertension BPH (benign prostatic hyperplasia) Cataract CKD (chronic kidney disease) Diabetes mellitus type 2, insulin dependent Elevated PSA Erectile dysfunction Gout History of prostate cancer Hypothyroidism (acquired) Mixed hyperlipidemia Vitamin D deficiency Surgical History Surgical History (Updated 09/18/21 @ 12:56 by Rishi Cortez MD) History of carpal tunnel surgery of left wrist History of carpal tunnel surgery of right wrist History of knee replacement both knees right was in 2011 left was in 2013 Hx of prostatectomy S/P cholecystectomy Family History Family History Sibling Family history of diabetes mellitus in first degree relative Diabetes mellitus Sibling Cancer Other Hypertension Social History Social History (Updated 09/18/21 @ 12:57 by Rishi Cortez MD) Social History: Patient lives with his . He drinks 2 alcoholic drinks per month on average. Lifelong nonsmoker. No history of drug use. Full code. He nominates his to be the individual would make medical decisions for him if he is unable. Smoking status: Never smoker Alcohol intake: current Drinks per week: 1 Substance use: never Additional living arrangements comments: Gender identity (if verbalized by the patient): Male Spiritual care concerns: No Meds Home Medications and Allergies Home Medications Medication Instructions Recorded Confirmed Type aspirin 81 mg tablet,delayed 81 mg PO DAILY 05/19/19 09/18/21 History release vitamin B complex 1 tablet PO DAILY 05/19/19 09/18/21 H
--- NOTE | 2021-09-18 12:42 | ADMGEN ---
1001-This patient, Raghavendra Nogueira, was admitted to IMU Room 209-. Patient/family oriented to hospital policies and general routines including ID bracelet, bed and alarms, visiting hours, pain management, procedures, bathroom and other care routines, personal items, smoking policy, room service/diet, and visiting hours. Information on how to activate the Rapid Response Team has been discussed. Patient/Family are encouraged to report perceived risks to care and to ask questions if they do not understand what they are told or what they should do.
[2021-09-18 13:08] LABS: Troponin I 0.079 ng/mL (0.000-0.034)
[2021-09-18] MEDS: ATORVASTATIN 40 MG TABLET PO (14:10)
[2021-09-18] MEDS: CHOLECALCIFEROL 1,000 UNITS TABLET 2000 UNITS PO (14:10)
[2021-09-18] MEDS: lisinopriL 20 MG TABLET 40 MG PO (14:11)
[2021-09-18] MEDS: INSULIN GLARGINE (*BKC) 100 UNITS/ML 25 UNITS SUB-Q (14:13)
--- NOTE | 2021-09-18 16:24 | PM.CNCAR ---
Assessment and Plan Additional Plan 71-year-old black male with longstanding hypertension diabetes untreated dyslipidemia presenting with 1-2 week history of positional shortness of breath. Really no physical exam evidence in my opinion of significantly decompensated heart failure. No history of ischemic type chest pain. Hypertension is well controlled with a for relatively aggressive regimen as described above. I will order an echocardiogram for further evaluation of this. Further recommendations will be pending those finding Anibal Amaya MD [facility] History of Present Illness History of Present Illness Consult date/time: 09/18/21 16:24 Consult reason: shortness of breath Reason For Visit: New onset CHD/elevated troponin Narrative: This is a very pleasant 71-year-old gentleman I am seeing this afternoon at the request of the hospitalist after he was admitted earlier today with some shortness of breath. This gentleman is not known to have any cardiac problems prior to this he does have longstanding hypertension and non insulin-dependent diabetes. The patient states that he has noticed between 1-2 weeks episodes of some shortness of breath that he has noticed is more difficult when he is lying down in his bed trying to sleep. He his symptoms are a little bit unusual since he says that some of this feels like his nose is becoming occluded and he thinks that is the problem other times he feels like he simply can not get a deep breath. He saw his PCP for evaluation of this in the office recently. He says some exams were ordered but the symptoms continued and so his family called an ambulance are earlier today and he was taken to the emergency department. In the emergency department he had a CT of the chest done which was negative for evidence of a pulmonary embolism but does comment on some cardiomegaly. His chest x-ray also shows the cardiac silhouette to be slightly enlarged and may be some bilateral atelectasis. He reports the mild sense of a heaviness in the left precordium of his chest but he states that it has been going on for a long time seems to come and go in an unpredictable fashion. His 12 lead ECG shows sinus rhythm with some lateral precordial T-wave inversions which is not different from a previous ECG in the record. His hypertension regimen consists of diltiazem, in tapped him I would lisinopril. Normally he states he is at active gentleman his age she does go to the gym couple times per week and works out on a stationary bike and a treadmill without any difficulty Review of Systems Constitutional: Constitutional: Reports no additional constitutional complaints Eyes: Eyes: Reports no additional eye complaints ENT: Reports as per HPI and Reports nasal congestion Cardiovascular: Cardiovascular: Reports as per HPI Respiratory: Respiratory: Reports as per HPI Gastrointestinal: Gastrointestinal: Reports no additional gastrointestinal complaints Musculoskeletal: Musculoskeletal: Reports no additional musculoskeletal complaints Integumentary/Breasts: Skin/Breast: Reports system reviewed and no additional complaints, except as docu Neurologic: Reports system reviewed and no additional complaints, except as documented Endocrine: Endocrine: Reports no additional endocrine complaints Hematologic/Lymphatic: Hematologic/Lymphatic: Reports no additional hematologic/lymphatic complaints Allergic/Immunologic: Allergic/Immunologic: Reports no additional allergic/immunologic complaints [facility] Past Medical History Medical History (Updated 09/18/21 @ 13:00 by Rishi Cortez MD) Benign essential hypertension BPH (benign prostatic hyperplasia) Cataract CKD (chronic kidney disease) Diabetes mellitus type 2, insulin dependent Elevated PSA Erectile dysfunction Gout History of prostate cancer Hypothyroidism (acquired) Mixed hyperlipidemia Vitamin D deficiency Surgical History Surgical History (Updated 09/18/21 @ 12:56 b
[2021-09-18 17:11] LABS: Glucose Point of Care 132 mg/dl (65-105)
[2021-09-18] MEDS: FLUTICASONE PROPIONATE 0.05% NA SPR 16 GM BTL (*BKC) 2 SPRAY NASAL (17:51)
--- NOTE | 2021-09-18 21:32 | ECG_ITS ---
Measurements Intervals [place] Rate: 69 P: 229 CT: 188 QRS: 0 QRSD: 97 T: 191 QT: 428 QTc: 461 Interpretive Statements SINUS RHYTHM WITH OCCASIONAL VENTRICULAR PREMATURE COMPLEXES WITH FREQUENT SUPRAVENTRICULAR PREMATURE COMPLEXES LEFT VENTRICULAR HYPERTROPHY AND ST-T CHANGE [VOLTAGE CRITERIA PLUS ST/T ABNORMALITY] COMPARED TO ECG 09/18/2021 06:12:02 THE ANTEROLATERAL T-WAVE INVERSIONS MORE PERVASIVE, NOW PRESENT IN THE ANTERIOR LEADS. Electronically Signed On 09-19-2021 12:08:34 CDT by Marcy Aguilera M.D.
[2021-09-18 22:09] LABS: Potassium 3.3 mmol/L (3.4-5.0)
[2021-09-19] VITALS (35 sets, daily range): BP systolic 108–175; BP diastolic 58–111; PULSE 60–99; RESP 12–22; TEMP 36.2–37.1; O2SAT 95–100
[2021-09-19 05:08] LABS: Basophils Percent Auto 0.6 % (0.2-1.2); Eosinophils Absolute Auto 0.2 K/mm3 (0-0.3); Eosinophils Percent Auto 3.7 % (0-4.4); Hematocrit 40.5 % (42.0-52.0); Hemoglobin 13.9 g/dL (14.0-18.0); Immature Granulocyte Absolute 0.01 K/mm3 (0.00-0.031); Immature Granulocyte Percent A 0.2 % (0-0.5); Lymphocytes Absolute Auto 1.97 K/mm3 (0.9-3.2); Lymphocytes Percent Auto 36.1 % (18.3-44.2); Mean Corpuscular HGB Conc 34.3 g/dl (32-36); Mean Corpuscular Hemoglobin 29.4 pg (26-34); Mean Corpuscular Volume 85.6 fl (80-100); Mean Platelet Volume 12.1 fl (7.4-10.4); Monocytes Absolute Auto 0.6 K/mm3 (0.1-0.6); Monocytes Percent Auto 11.2 % (2.6-8.5); Neutrophils Absolute Auto 2.6 K/mm3 (1.3-6.7); Neutrophils Percent Auto 48.2 % (45.5-73.1); Platelet Count Result 206 k/mm3 (150-375); Red Blood Count 4.73 M/mm3 (4.6-6.20); Red Cell Distribution Width 14.9 % (11.5-14.5); White Blood Count 5.5 K/mm3 (4.5-10.0)
[2021-09-19 05:19] LABS: Alanine Aminotransferase 20 U/L (4-50); Alkaline Phosphatase 70 U/L (38-126); Anion Gap 7 mmol/L (8-16); Aspartate Amino Transferase 28 U/L (17-59); Bilirubin,Total 0.9 mg/dL (0.2-1.3); Blood Urea Nitrogen 22 mg/dL (9-20); Carbon Dioxide 33 mmol/L (22-30); Chloride 104 mmol/L (98-107); Estimated CRCL calculation 55 ml/min; Estimated Glomerular Filt Rate > 60; Glucose 87 mg/dL (65-110); Magnesium 2.1 mg/dL (1.6-2.3); Potassium 3.4 mmol/L (3.4-5.0); Sodium 144 mmol/L (137-145)
[2021-09-19] MEDS: LEVOTHYROXINE SODIUM 112 MCG TABLET PO (05:33)
[2021-09-19 08:25] LABS: Glucose Point of Care 89 mg/dl (65-105)
--- NOTE | 2021-09-19 08:51 | PM.PNCARD ---
Progress Note: A&P Assessment and Plan (1) Acute combined systolic and diastolic congestive heart failure: Code(s): I50.41 - Acute combined systolic (congestive) and diastolic (congestive) heart failure Status: Acute Assessment and Plan: Acute systolic heart failure diuresing but still symptomatic. Discussed CHF with patient Continue IV furosemide 40 mg b.i.d. Daily BMP (2) Cardiomyopathy: Code(s): I42.9 - Cardiomyopathy, unspecified Status: Acute Assessment and Plan: New cardiomyopathy Does have segmental wall motion abnormalities and risk factors for CAD, which may be the etiology. Mildly elevated troponins. EKG yesterday at 9:32 p.m. on my personal review shows sinus rhythm with T-wave inversion V2 through V 6, 1 and L., more diffuse T-wave inversion than that seen on the EKG 09/18/2021 at 6:12 a.m., suggesting ischemia Also hypertensive, contributing factor. Adjust meds: Change lisinopril to Entresto, discontinue diltiazem, add carvedilol and spironolactone, add Jardiance Cardiac catheterization today. Reviewed with patient; had a cardiac catheterization 8 years ago at [facility]. (3) Elevated troponin: Code(s): R77.8 - Other specified abnormalities of plasma proteins Status: Acute Assessment and Plan: May be related to heart failure. Need to rule out coronary disease. (4) Benign essential hypertension: Code(s): I10 - Essential (primary) hypertension Status: Acute Assessment and Plan: Not at goal (5) Mixed hyperlipidemia: Code(s): E78.2 - Mixed hyperlipidemia Status: Acute Assessment and Plan: Taking atorvastatin (6) CKD stage 2 due to type 2 diabetes mellitus: Code(s): E11.22 - Type 2 diabetes mellitus with diabetic chronic kidney disease; N18.2 - Chronic kidney disease, stage 2 (mild) Status: Acute Subjective Date/time seen: 09/19/21 08:51 Interval history: For new cardiomyopathy, shortness of breath diabetes and hypertension. Date of service 09/19/2021: Still a little short of breath with walking and still orthopneic. Some constant mild heaviness in his chest. Good diuresis yesterday. Systolic BP running 150-180. Echo yesterday showed LV enlargement, EF 25-30% with segmental wall motion abnormalities. Relates that he had a cardiac catheterization about 8 years ago at [facility] which was okay. Review of Systems Constitutional: Constitutional: Denies fatigue Eyes: Eyes: Reports no additional eye complaints ENT: Denies epistaxis and Reports nasal congestion Cardiovascular: Cardiovascular: Reports chest pain, Denies pedal edema, Denies leg edema, Denies lightheadedness and Denies palpitations Respiratory: Respiratory: Denies cough, Reports dyspnea and Reports dyspnea on exertion Gastrointestinal: Gastrointestinal: Denies abdominal pain Genitourinary: Genitourinary: Denies hematuria Musculoskeletal: Musculoskeletal: Reports no additional musculoskeletal complaints Integumentary/Breasts: Skin/Breast: Denies rash Neurologic: Reports system reviewed and no additional complaints, except as documented Psychiatric: Psychiatric: Reports no additional psychiatric complaints Exam Narrative: Pleasant middle-aged male sitting at the bedside no distress but hungry Const: General: no acute distress HENMT: General nose exam: no epistaxis Eyes: EOM: EOMs intact bilaterally Neck: Neck: supple Resp: Effort & Inspection: normal respiratory effort Auscultation: clear to auscultation bilaterally Cardio: Rate: regular rate Rhythm: regular rhythm GI: GI Palp: Yes Soft to palpation and No Tenderness to palpation present (GI) Skin: General skin exam: normal color and no rashes or lesions noted Neuro: Cognition (Neuro): normal cognition Speech: normal speech Extrem: General: no edema and no pedal edema Psych: Mental Status: mental status grossly normal Affect: n
[2021-09-19] MEDS: ASPIRIN 81 MG CHEWABLE TABLET PO (09:27)
[2021-09-19] MEDS: POTASSIUM CHLORIDE 20 MEQ TABLET 40 MEQ PO (09:28)
[2021-09-19] MEDS: CHOLECALCIFEROL 1,000 UNITS TABLET 2000 UNITS PO (09:28)
[2021-09-19] MEDS: ATORVASTATIN 40 MG TABLET PO (09:28)
[2021-09-19] MEDS: FUROSEMIDE INJ 40 MG/4 ML VIAL IV PUSH ×2 (09:30→20:06)
[2021-09-19] MEDS: FLUTICASONE PROPIONATE 0.05% NA SPR 16 GM BTL (*BKC) 2 SPRAY NASAL (09:30)
[2021-09-19] MEDS: VITAMIN B COMPLEX CAPSULE 1 CAP PO (09:31)
[2021-09-19] MEDS: OMEGA 3 POLYUNSAT FATTY ACIDS 1 GM CAP PO (09:31)
[2021-09-19] MEDS: EMPAGLIFLOZIN 10 MG TABLET PO (11:10)
[2021-09-19] MEDS: SPIRONOLACTONE 25 MG TABLET PO (11:10)
[2021-09-19 12:28] LABS: Glucose Point of Care 100 mg/dl (65-105)
--- NOTE | 2021-09-19 12:58 | WPDMODSED ---
Moderate Sedation Note-Pt Data Patient Data Diagnosis: Cardiomyopathy, newly diagnosed Present Complaint: shortness of breath Procedure to be performed/Plan: left heart catheterization Allergies Allergy/AdvReac Type Severity Reaction Status Date / Time No Known Allergies Allergy Verified 09/18/21 06:14 Home Medications Medication Instructions Recorded Confirmed Type aspirin 81 mg tablet,delayed 81 mg PO DAILY 05/19/19 09/18/21 History release vitamin B complex 1 tablet PO DAILY 05/19/19 09/18/21 History blood sugar diagnostic #100 each 08/20/19 09/15/21 Rx blood-glucose meter #1 each 08/20/19 09/15/21 Rx sildenafil (pulm.hypertension) 20 20 mg PO DAILY PRN #100 tablet 08/20/19 09/18/21 Rx mg tablet omega-3 fatty acids 1,000 mg 1,000 mg PO DAILY cap 04/25/20 09/18/21 History capsule pen needle, diabetic 32 gauge x See Rx Instructions .ROUTE 07/25/20 09/18/21 Rx 1/4 .COMPLEX #100 syringe lancets 30 gauge #100 ea 10/26/20 09/15/21 Rx levothyroxine 112 mcg PO QAM 05/23/21 09/18/21 History lisinopril 80 mg PO QAM 05/23/21 09/18/21 History cholecalciferol (vitamin D3) 1,250 See Rx Instructions PO .COMPLEX 07/03/21 09/18/21 Rx mcg (50,000 unit) capsule #10 cap cholecalciferol (vitamin D3) 50 50 mcg PO DAILY 07/03/21 09/18/21 History mcg (2,000 unit) capsule indapamide 2.5 mg tablet 2.5 mg PO QAM #90 tablet 07/26/21 09/18/21 Rx metformin 1,000 mg tablet 1,000 mg PO HS #90 tablet 07/26/21 09/18/21 Rx insulin degludec 200 unit/mL (3 66 unit SUB-Q QAM #27 ml 08/24/21 09/18/21 Rx mL) subcutaneous pen atorvastatin 40 mg PO QAM 09/18/21 09/18/21 History blood sugar diagnostic #100 ea 09/18/21 Rx diltiazem HCl 360 mg PO DAILY 09/18/21 09/18/21 History Current Medications: Active Medications Aspirin (Aspirin 81 Mg Chewable Tablet) 81 mg PO DAILY@0800 [facility] Last Admin: 09/19/21 09:27 Dose: 81 mg Documented by: Atorvastatin Calcium (Atorvastatin 40 Mg Tablet) [facility] [place] Last Admin: 09/19/21 09:28 Dose: 40 mg Documented by: Carvedilol (Carvedilol 3.125 Mg Tablet) 3.125 mg PO Q12HR [facility] Dextrose (Dextrose 50% 25 Gm/50 Ml Syringe) 12.5 gm IV PUSH PRN PRN; Protocol PRN Reason: Hypoglycemia Empagliflozin (Empagliflozin 10 Mg Tablet) 10 mg PO DAILY [facility] Last Admin: 09/19/21 11:10 Dose: 10 mg Documented by: Enoxaparin Sodium (Enoxaparin 40 Mg/0.4 Ml Syringe) 40 mg SUB-Q DAILY [facility] Last Admin: 09/19/21 11:09 Dose: Not Given Documented by: Fish Oil ([place] 3 Polyunsat Fatty Acids 1 Gm Cap) 1 gm PO DAILY [facility] Last Admin: 09/19/21 09:31 Dose: 1 gm Documented by: Fluticasone Propionate (Fluticasone Propionate 0.05% Na Spr 16 Gm Btl (*Bkc)) 2 spray NASAL [facility] Last Admin: 09/19/21 09:30 Dose: 2 spray Documented by: Furosemide (Furosemide Inj 40 Mg/4 Ml Vial) 40 mg IV PUSH Q12HR [facility] Last Admin: 09/19/21 09:30 Dose: 40 mg Documented by: Glucagon (Glucagon For Inj 1 Mg Vial) 1 mg IM PRN PRN; Protocol PRN Reason: Hypoglycemia Glucose (Glucose Oral Gel 15 Gm Of Glucse In 37.5 Gm Tube) 15 gm PO PRN PRN; Protocol PRN Reason: Hypoglycemia Dextrose (Dextrose 5% 1,000 Ml) 1,000 mls @ 100 mls/hr IVPB PRN PRN; Protocol PRN Reason: Hypoglycemia Insulin Aspart (Insulin Aspart (*Bkc) 100 Units/Ml) 3 - 6 units SUB-Q TIDWM [facility]; Protocol Last Admin: 09/19/21 09:18 Dose: Not Given Documented by: Insulin Glargine (Insulin Glargine (*Bkc) 100 Units/Ml) 25 units SUB[facility]Q [facility] [place] Stop: 10/18/21 13:24 Last Admin: 09/19/21 09:44 Dose: Not Given Documented by: Levothyroxine Sodium (Levothyroxine Sodium 112 Mcg Tablet) 112 mcg PO DAILY@0630 JONNA Last Admin: 09/19/21 05:33 Dose: 112 mcg Documented by: Ondansetron HCl (Ondansetron Inj 4 Mg/2 Ml Vial) 4 mg IV PUSH Q4H PRN PRN Reason: Nausea Perflutren Lipid Microsphere (Perflutren Lipid Microspheres 1.5 Ml Vial Diluted To 10 Ml Total Volume) 0 ml IV PUSH ONCE PRN; Protocol PRN Reason: adequate visualization Perflutren Lipid Microsphere (Perflutre
--- NOTE | 2021-09-19 13:24 | WPDCARDPROC ---
Cardiac Cath Procedure Note Date of procedure:: 09/19/21 Performing physician:: nAibal Amaya MD Indication:: newly diagnosed cardiomyopathy Brief clinical history:: this is a 71-year-old man presenting with symptoms of shortness of breath particularly with nocturnal dyspnea and orthopnea. Echocardiogram has demonstrated evidence of severe LV systolic dysfunction. He has longstanding hypertension and Non insulin-dependent diabetes. Procedure Procedure performed:: Coronary angiogram left ventriculogram Sedation/Medication given:: fentanyl 50 mg Versed 2 mg case start time 1:03 p.m. case end time 1:20 p.m. sedation provided by Eleazar Dixon RN, trained observer Access site:: right femoral artery Estimated blood loss:: minimal Procedure note:: patient was brought to the cardiac catheterization lab where the right femoral triangle prepared and draped normal sterile fashion. Anesthesia was provided with 1% lidocaine infiltrated locally using the modified Seldinger technique the femoral artery was punctured and a 5 Trinidadian vascular sheath was placed. After this left heart catheterization was performed. A 5 JR4 catheter was used to engage and inject the right coronary artery. Following this a 5 Trin[place] FL4 catheter was used to engage and inject the left coronary. After this 5 Trin[place] angled pigtail catheter was used to measure left-sided hemodynamics and to inject and LV g in the OLMEDO projection. The case was then terminated the cineangiograms were reviewed. An angiogram was done of the femoral artery through the sheath after which a determine to pull the sheath with direct manual compression in the holding area. Procedure was well tolerated there were no apparent complications. 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 Findings:: Hemodynamics: Central aortic pressure was 176 over 72. Left ventricle 176/5 end-diastolic pressure 16 there is no significant gradient across the aortic valve upon pullback Left ventricle: Left ventricle is moderately dilated there is severe global systolic dysfunction with violette akinesis of the inferior wall. The global ejection fraction is visually estimated to be about 25%. The left main artery is short but widely patent the left anterior descending is a moderate to large caliber vessel extending down to the apex. The LAD and its branches are smooth and angiographically normal in appearance. Circumflex is a large caliber vessel giving rise to marginal branches and posterior branch as well. The circumflex is smooth and angiographically normal in appearance. The right coronary artery is medium in caliber and dominant for the posterior circulation. The right coronary artery is smooth and angiographically normal in appearance. Conclusion:: 1. Right coronary dominant circulation with no angiographic evidence of coronary disease. 2. Severe nonischemic cardiomyopathy with low ejection fraction as described above [facility] MD [facility]
[2021-09-19] MEDS: SODIUM CHLORIDE 0.9% IV 1,000 ML 125 ML IV CONT (13:50)
[2021-09-19] MEDS: hydrALAZINE HCL 20 MG/ML VIAL 10 MG IV PUSH ×2 (14:22→16:52)
--- NOTE | 2021-09-19 14:22 | SUR.PHASEII ---
BP RANGING FROM 140/82 TO 170/95 D[address] TUTTLE. ORDER RECEIVED TO GIVE HYDRALAZINE 10MG IVP X 1 AND VERIFIED ORDERS FOR IVF'S AT 125ML/HR. HYDRALAZINE 10MG GIVEN IVP AT 1422 AND IVF'S RUNNING AT 125ML/HR VIA PUMP ORDERED. OTHERWISE, TOLERATED SHEATH PULL WELL.
--- NOTE | 2021-09-19 14:27 | PC.NURSE ---
Cardiopulmonary Rehab Services flyer was given to patient.
--- NOTE | 2021-09-19 15:05 | SUR.PHASEII ---
report called to kimberly orozco. site soft, dressing d/c/i, pulses present. patient alert and understands instructions. will transfer back to room at 209 by stretcher at 1515
--- NOTE | 2021-09-19 15:22 | PM.IMPN ---
Progress Note: A&P Assessment and Plan (1) Acute combined systolic and diastolic congestive heart failure: Code(s): I50.41 - Acute combined systolic (congestive) and diastolic (congestive) heart failure Status: Acute Assessment and Plan: Patient presents with worsening shortness of breath that is positional with associated chest pressure. BNP elevated at 2530. CTA of the chest is negative for PE but does show pulmonary edema. He is on indapamide which is probably minimizing his symptoms. EKG does show lateral T-wave inversions but these were present in May. He was admitted and started on IV Lasix. Echo shows EF 25-30% and akinetic posterior segment with Grade I diastolic dysfunction. LHC earlier today showing no evidence of coronary disease but with severe global systolic dysfunction with violette akinesis of the inferior wall and EF 25%. Will continue IV Lasix. Coreg/Aldactone/Entresto/Empagliflozin added. CHF teaching. Daily weights. Monitor renal function closely. (2) Elevated troponin: Code(s): R77.8 - Other specified abnormalities of plasma proteins Status: Acute Assessment and Plan: Troponin elevated to 0.082. EKG as mentioned above. LHC showing severe nonischemic cardiomyopathy. Elevated troponin not related to ischemic coronary disease. Bradycardia at night, consider undiagnosed sleep apnea. Check apnea link. (3) Cardiomyopathy: Code(s): I42.9 - Cardiomyopathy, unspecified Status: Acute Assessment and Plan: LHC showing severe nonischemic cardiomyopathy. Medical management as above. (4) Chest pain: Code(s): R07.9 - Chest pain, unspecified Status: Acute Assessment and Plan: Related to above (5) CKD (chronic kidney disease): Qualifiers: Chronic kidney disease stage: stage 1 Qualified Code(s): N18.1 - Chronic kidney disease, stage 1 Code(s): N18.9 - Chronic kidney disease, unspecified Status: Acute Assessment and Plan: Creatinine 1.6 on admission which is roughly within his baseline. Monitor blood pressure closely. Try not to overcorrect blood pressure too fast that may compromise renal perfusion. Creatinine stable and he is toelrating the diuresis. Monitor renal function closely since he received contrast and the addition of Aldactone, Entresto. Continue to monitor. (6) Benign essential hypertension: Code(s): I10 - Essential (primary) hypertension Status: Acute Assessment and Plan: Patient's blood pressure was elevated on admission to 189/131. This itself could be contributing to the pulmonary edema if his blood pressure is chronically poorly controlled. BP has remained elevated but medications being adjusted. Continue to monitor. 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 The patient's blood glucose was reviewed on 09/19. Glucose remains well controlled. Continue AccuCheks covering with sliding scale. Hypoglycemia protocol available as needed. Continue Lantus (held this morning for [facility]). Empagliflozin ordered. (8) Hypothyroidism (acquired): Code(s): E03.9 - Hypothyroidism, unspecified Status: Acute Assessment and Plan: TSH was normal in June. Will not repeat TSH. Continue levothyroxine. Subjective Date/time seen: 09/19/21 15:22 Interval history: 71yo male with DM, HTN and prostate cancer here for shortness of breath. Patient back from [facility]. He feels well. SOB better. Complains of left nasal congestion but Flonase has helped. Still with the constant chest pressure worse with deep breaths. Exam Narrative: AF 97.2 151/97 72 14 95% ra Gen - NARD Chest - lungs clear anteriorly and in the flanks CV - RRR S1/S2. Tele showing NSR with PACs and PVCs,
[2021-09-19 16:45] LABS: Glucose Point of Care 69 mg/dl (65-105)
[2021-09-19] MEDS: SACUBITRIL/VALSARTAN 49-51 MG TABLET 1 TABLET PO (20:05)
[2021-09-19] MEDS: carvediloL 3.125 MG TABLET PO (20:06)
[2021-09-19 20:15] LABS: Glucose Point of Care 209 mg/dl (65-105)
[2021-09-20] VITALS (14 sets, daily range): BP systolic 130–174; BP diastolic 71–129; PULSE 70–90; RESP 13–30; TEMP 36.1–37.1; O2SAT 92–100
[2021-09-20] MEDS: LEVOTHYROXINE SODIUM 112 MCG TABLET PO (05:34)
[2021-09-20 05:49] LABS: Anion Gap 8 mmol/L (8-16); Blood Urea Nitrogen 22 mg/dL (9-20); Calcium 9.4 mg/dL (8.4-10.2); Carbon Dioxide 27 mmol/L (22-30); Chloride 108 mmol/L (98-107); Estimated CRCL calculation 55 ml/min; Estimated Glomerular Filt Rate 52; Glucose 132 mg/dL (65-110); Potassium 3.9 mmol/L (3.4-5.0); Sodium 143 mmol/L (137-145)
[2021-09-20] MEDS: OMEGA 3 POLYUNSAT FATTY ACIDS 1 GM CAP PO (08:18)
[2021-09-20] MEDS: SACUBITRIL/VALSARTAN 49-51 MG TABLET 1 TABLET PO (08:18)
[2021-09-20] MEDS: VITAMIN B COMPLEX CAPSULE 1 CAP PO (08:18)
[2021-09-20] MEDS: ASPIRIN 81 MG CHEWABLE TABLET PO (08:18)
[2021-09-20] MEDS: CHOLECALCIFEROL 1,000 UNITS TABLET 2000 UNITS PO (08:18)
[2021-09-20] MEDS: EMPAGLIFLOZIN 10 MG TABLET PO (08:18)
[2021-09-20] MEDS: ATORVASTATIN 40 MG TABLET PO (08:18)
[2021-09-20] MEDS: SPIRONOLACTONE 25 MG TABLET PO (08:18)
[2021-09-20] MEDS: carvediloL 3.125 MG TABLET PO (08:19)
[2021-09-20] MEDS: ENOXAPARIN 40 MG/0.4 ML SYRINGE SUB-Q (08:19)
[2021-09-20] MEDS: FLUTICASONE PROPIONATE 0.05% NA SPR 16 GM BTL (*BKC) 2 SPRAY NASAL (08:20)
[2021-09-20] MEDS: FUROSEMIDE INJ 40 MG/4 ML VIAL IV PUSH (08:21)
[2021-09-20] MEDS: INSULIN GLARGINE (*BKC) 100 UNITS/ML 25 UNITS SUB-Q (08:48)
[2021-09-20 09:44] LABS: Glucose Point of Care 112 mg/dl (65-105)
--- NOTE | 2021-09-20 10:01 | PM.PNCARD ---
Progress Note: A&P Assessment and Plan (1) Acute combined systolic and diastolic congestive heart failure: Code(s): I50.41 - Acute combined systolic (congestive) and diastolic (congestive) heart failure Status: Acute Assessment and Plan: Acute systolic heart failure diuresing but still symptomatic. Discussed CHF with patient Continue IV furosemide 40 mg b.i.d. Daily BMP (2) Cardiomyopathy: Code(s): I42.9 - Cardiomyopathy, unspecified Status: Acute Assessment and Plan: New cardiomyopathy Possibly hypertensive or idiopathic cardiomyopathy. Adjusted meds: Change lisinopril to Entresto, discontinue diltiazem, add carvedilol and spironolactone, add Jardiance -- BUT Dr. Hood added Farxiga recently (not on the med list) so I will discontinue Jardiance. Discussed cardiomyopathy extensively with the patient, when to call, medications, expectations, risk of sudden cardiac , recommended LifeVest. Patient desires to talk to Dr. Sheth about that. Discussed follow-up etc.. (3) Elevated troponin: Code(s): R77.8 - Other specified abnormalities of plasma proteins Status: Acute Assessment and Plan: May be related to heart failure. (4) Benign essential hypertension: Code(s): I10 - Essential (primary) hypertension Status: Acute Assessment and Plan: Not at goal (5) Mixed hyperlipidemia: Code(s): E78.2 - Mixed hyperlipidemia Status: Acute Assessment and Plan: Taking atorvastatin (6) CKD stage 2 due to type 2 diabetes mellitus: Code(s): E11.22 - Type 2 diabetes mellitus with diabetic chronic kidney disease; N18.2 - Chronic kidney disease, stage 2 (mild) Status: Acute Assessment and Plan: A little worse after diuresis and cardiac catheterization; will follow-up as an outpatient. Subjective Date/time seen: 09/20/21 10:01 Interval history: For new cardiomyopathy, shortness of breath diabetes and hypertension. Date of service 09/19/2021: Still a little short of breath with walking and still orthopneic. Some constant mild heaviness in his chest. Good diuresis yesterday. Systolic BP running 150-180. Echo yesterday showed LV enlargement, EF 25-30% with segmental wall motion abnormalities. Relates that he had a cardiac catheterization about 8 years ago at [facility] which was okay. Date of service 09/20/2021: Patient's catheterization yesterday showed no coronary disease but severe global hypokinesis, LV enlargement, EF 25%. He is tolerating the med occasion changes. He is feeling well, up and about in his room with no shortness of breath or orthopnea. No edema. Review of Systems Constitutional: Constitutional: Denies fatigue Eyes: Eyes: Reports no additional eye complaints ENT: Denies epistaxis and Reports nasal congestion Cardiovascular: Cardiovascular: Denies chest pain, Denies pedal edema, Denies leg edema, Denies lightheadedness, Denies palpitations, Reports dyspnea and Reports dyspnea on exertion Respiratory: Respiratory: Denies cough, Denies dyspnea and Denies dyspnea on exertion Gastrointestinal: Gastrointestinal: Denies abdominal pain Genitourinary: Genitourinary: Denies hematuria Musculoskeletal: Musculoskeletal: Reports no additional musculoskeletal complaints Integumentary/Breasts: Skin/Breast: Denies rash Neurologic: Reports system reviewed and no additional complaints, except as documented Psychiatric: Psychiatric: Reports no additional psychiatric complaints Endocrine: Endocrine: Denies fatigue and Denies palpitations Exam Narrative: Pleasant middle-aged male sitting on his bed, no distress Const: General: no acute distress HENMT: General nose exam: no epistaxis Eyes: EOM: EOMs intact bilaterally Neck: Neck: supple Resp: Effort & Inspection: normal respiratory effort Auscultation: clear to auscultation bilaterally Cardio: Rate: regular rate Rhythm: regular r
[2021-09-20 12:10] LABS: Glucose Point of Care 215 mg/dl (65-105)
[2021-09-20] MEDS: INSULIN ASPART (*BKC) 100 UNITS/ML SUB-Q (12:27)
--- NOTE | 2021-09-20 13:53 | PM.DS ---
DS: Admitting Diagnosis Discharge Date 09/20/21 Admitting Diagnosis Shortness of Breath/Dyspnea DS: Discharge Diagnosis Discharge Diagnosis (1) Acute combined systolic and diastolic congestive heart failure: Code(s): I50.41 - Acute combined systolic (congestive) and diastolic (congestive) heart failure Status: Acute Assessment and Plan: Patient presents with worsening shortness of breath that is positional with associated chest pressure. BNP elevated at 2530. CTA of the chest was negative for PE but does show pulmonary edema. He is on indapamide which is probably minimizing his symptoms. EKG does show lateral T-wave inversions but these were present in May. He was admitted and started on IV Lasix. Echo shows EF 25-30% and akinetic posterior segment with Grade I diastolic dysfunction. LHC 09/19 showing no evidence of coronary disease but with severe global systolic dysfunction with violette akinesis of the inferior wall and EF 25%. He was started on Coreg/Aldactone/Entresto/Empagliflozin added. CHF teaching performed. Renal function remained stable. He had clinical improvement. LifeVest being planned. (2) Elevated troponin: Code(s): R77.8 - Other specified abnormalities of plasma proteins Status: Acute Assessment and Plan: Troponin elevated to 0.082. EKG as mentioned above. LHC showing no evidence of coronary disease but severe nonischemic cardiomyopathy. Elevated troponin not related to ischemic coronary disease. Bradycardia at night so we considered undiagnosed sleep apnea. Apnea link was positive showing AHI 60 and RI 62 with only 2 desaturations <88%. Check split night sleep study after discharge. (3) Cardiomyopathy: Code(s): I42.9 - Cardiomyopathy, unspecified Status: Acute Assessment and Plan: LHC showing severe nonischemic cardiomyopathy. Medical management as above. (4) Chest pain: Code(s): R07.9 - Chest pain, unspecified Status: Acute Assessment and Plan: Related to above (5) CKD (chronic kidney disease): Qualifiers: Chronic kidney disease stage: stage 1 Qualified Code(s): N18.1 - Chronic kidney disease, stage 1 Code(s): N18.9 - Chronic kidney disease, unspecified Status: Acute Assessment and Plan: Creatinine 1.6 on admission which is roughly within his baseline. Creatinine stable and he tolerated the diuresis. Also tolerated the addition of Aldactone, Entresto. (6) Benign essential hypertension: Code(s): I10 - Essential (primary) hypertension Status: Acute Assessment and Plan: Patient's blood pressure was elevated on admission to 189/131. This itself could be contributing to the pulmonary edema if his blood pressure is chronically poorly controlled. BP became better controlled with medication adjustment. (7) Diabetes mellitus type 2, insulin dependent: Code(s): E11.9 - Type 2 diabetes mellitus without complications; Z79.4 - long term acute care registered nurse (current) use of insulin Status: Acute Assessment and Plan: A1c 6.3 in June. The patient's blood glucose was monitored closely with AccuCheks covering with sliding scale. Hypoglycemia protocol was available as needed. We continued Lantus. Patient to resume his Farxiga after discharge (8) Hypothyroidism (acquired): Code(s): E03.9 - Hypothyroidism, unspecified Status: Acute Assessment and Plan: TSH was normal in June. We continued levothyroxine. DS: Summary Hospital Course Reason for hospitalization: 71yo male with DM, HTN and prostate cancer here for shortness of breath. Please see H&P for details. Hospital Course: Please see above for details of hospital course Status at Discharge Cognitive/behavioral status at discharge: Stable Time Spent with Patient Time attestation: Total time spent providing and/or coordinating discharge services: 35 minutes Time spent: Gr
--- NOTE | 2021-09-20 17:46 | PC.NURSE ---
Patient alert/oriented, GILL, no c/o pain, ambulating w/o difficulty, no distress noted of any kind; left hand 20g d/c'd, no bleeding/no hematoma noted, gauze applied for skin protection; patient tolerating diet w/o difficulty, skin intact, right groin remains soft, and dressing changed to bandaid. All prescriptions transmitted to [facility] (Mail Order). Patient wheelchaired out to waiting private vehicle.
[2021-09-20 19:41] LABS: Glucose Point of Care 179 mg/dl (65-105)
== END 2021-09-20 20:05 | disposition home or self-care (01) | DRG 286 ==
LOC: ANHED 07:01 → ANHIMU 09:51 → ANHCPC 09-19 15:43
PROVIDERS: Emergency Medicine; Internal Medicine Cardiovascular Disease; Specialist; Admitting Provider Internal Medicine; Emergency Provider General Practice; PCP Internal Medicine; Visit Provider Internal Medicine
PROC: 4A023N7 Measurement of Cardiac Sampling and Pressure, Left Heart, Percutaneous Approach (ICD-10-PCS; CPT 93452; principal; 2021-09-19 13:00)
DX: I13.0 Hypertensive heart and chronic kidney disease with heart failure and stage 1 through stage 4 chronic kidney disease, or unspecified chronic kidney disease (principal); I50.41 Acute combined systolic (congestive) and diastolic (congestive) heart failure; E11.22 Type 2 diabetes mellitus with diabetic chronic kidney disease; N18.2 Chronic kidney disease, stage 2 (mild); I42.8 Other cardiomyopathies; Z82.49 Family history of ischemic heart disease and other diseases of the circulatory system; Z80.9 Family history of malignant neoplasm, unspecified; Z85.46 Personal history of malignant neoplasm of prostate; E78.2 Mixed hyperlipidemia; E03.9 Hypothyroidism, unspecified; N40.0 Benign prostatic hyperplasia without lower urinary tract symptoms; R77.8 Other specified abnormalities of plasma proteins; R07.9 Chest pain, unspecified; E55.9 Vitamin D deficiency, unspecified; Z79.899 Other long term (current) drug therapy; Z79.4 Long term (current) use of insulin; Z79.84 Long term (current) use of oral hypoglycemic drugs
CPT/HCPCS: 36415; 71046; 71275; 80048; 80053; 82948; 83690; 83735; 83880; 84132; 84484; 85025; 85380; 85610; 85730; 93005; 93306; 93458; 94762; 96374; 96376; 99285; A9270; C1887; C1894; C9803; G0378; J0360; J1644; J1650; J1815; J1940; J2250; J3010; J7030; J7040; Q9967; U0003; U0005

== ENCOUNTER 2022-02-28 13:27 | Outpatient (CLI) | payer MEDICARE, SELFPAY ==
--- NOTE | ~2022-02-28 | PE_ITS ---
EXAMINATION: PET_PETPSMAST_PT DATE: 02/28/2022 15:58 INDICATION: Malignant neoplasm of the prostate TECHNIQUE: 9.494 mCi of pipflufolastat F-18 (18-F-DCFPyL) was administered i.v. Low dose computed to mography (CT) images were acquired from the base of the brain to the base of the brain to the proxima l thighs for attenuation correction and anatomic localization. Positron emission tomography (PET) sarthak ges were acquired in the same distribution beginning 106 minutes after injection. Images including fu sed PET/CT images were reconstructed in axial, coronal, and sagittal planes. Automated exposure contr ol technique was employed. The dose-length product was 1200.56mGy-cm. COMPARISON: 11/15/2016 FINDINGS: Head/neck: Typical pattern of symmetric physiologic increased activity in the lacrimal, parotid and submandibula r glands as well as along the mucosa of the oropharynx and nasopharynx. No pathologically enlarged ce rvical lymphadenopathy or suspicious foci of increased uptake in the visualized head or neck. Chest: Small lung volumes with groundglass opacities and bronchovascular crowding related to expiratory phas e of imaging with concave posterior margins to the trachea and mainstem bronchi. No pneumonia, pulmon liz edema, suspicious pulmonary nodules or pleural effusion. Cardiomegaly. No pericardial effusion. T horacic aorta is normal in caliber. Calcified AP window lymph node consistent with old granulomatous disease. No pathologically enlarged or PSMA avid thoracic lymphadenopathy. Abdomen/pelvis/proximal thighs: Physiologic renal accumulation and excretion of activity in the kidneys, bladder and along portions o f ureters. Prostate is not visualized and likely surgically absent.. Normal degree and heterogenous p attern of increased uptake throughout the liver and to a lesser degree at the spleen without radiolog ic correlate or dominant PSMA avid lesion. Cholecystectomy clips the gallbladder fossa. The pancreas and bilateral adrenal glands are normal. Moderate uptake scattered throughout the bowels with typical duodenal jejunal predominance and without radiologic correlate, also likely physiologic. No other ab normal foci of increased uptake or pathologically enlarged lymphadenopathy in the abdomen, pelvis or proximal thighs. Musculoskeletal: No suspicious lytic, blastic or the PSMA avid bone lesions. IMPRESSION: 1. Status post prostatectomy. No evident lesions suspicious for residual or metastatic prostate cance r. Reviewed, dictated and finalized at location A. IMPRESSION: 1. Status post prostatectomy. No evident lesions suspicious for residual or met astatic prostate cancer.
== END 2022-02-28 13:28 | disposition home or self-care (01) ==
PROVIDERS: PCP Internal Medicine; Visit Provider Urology
DX: Z03.89 Encounter for observation for other suspected diseases and conditions ruled out (principal); C61 Malignant neoplasm of prostate; Z90.79 Acquired absence of other genital organ(s)
CPT/HCPCS: 78815; A9595

== ENCOUNTER 2022-03-06 10:05 | Outpatient (CLI) | payer MEDICARE, SELFPAY ==
--- NOTE | ~2022-03-06 | XR_ITS ---
EXAM: XR_FOOTSTNDR3_CR DATE: 03/06/2022 10:44 HISTORY: M79.674 - dorsal and lateral foot pain x2wks, no injury . COMPARISON: None available. FINDINGS: Decreased mineralization. No fracture or dislocation. No lytic or blastic lesion. Moderate Achilles and plantar enthesopathy. Mild degenerative changes in the midfoot joints. Small os navicul prashant. No erosion or periosteal change. Soft tissues within normal limits. IMPRESSION: Moderate Achilles and plantar enthesopathy. Mild degenerative change in the midfoot. Reviewed, dictated and finalized at location K. IMPRESSION: Moderate Achilles and plantar enthesopathy. Mild degenerative flores e in the midfoot.
--- NOTE | ~2022-03-06 | XR_ITS ---
EXAM: XR ankle RT min 3V DATE: 03/06/2022 10:44 HISTORY: pain dorsal and lateral foot and lateral [id number], no inj . COMPARISON: 06/15/2021. FINDINGS: Decreased mineralization. No fracture or dislocation. No lytic or blastic lesion. Moderate osteoarthritic changes of the tibiotalar joint and mild degenerative change in multiple midfoot join ts. Moderate plantar and Achilles enthesopathy. No erosion or periosteal change. Soft tissues within normal limits. Ankle joint effusion. IMPRESSION: Degenerative changes, described above. Right ankle joint effusion. Reviewed, dictated and finalized at location K.
== END 2022-03-06 10:06 | disposition home or self-care (01) ==
LOC: ANHIMG 10:10
PROVIDERS: PCP Internal Medicine; Visit Provider Internal Medicine
DX: M79.89 Other specified soft tissue disorders (principal); M79.674 Pain in right toe(s); M25.571 Pain in right ankle and joints of right foot; M25.471 Effusion, right ankle; M76.62 Achilles tendinitis, left leg
CPT/HCPCS: 73610; 73630

== ENCOUNTER 2022-04-25 12:35 | Outpatient (CLI) | payer MEDICARE, SELFPAY ==
[2022-04-25 13:20] LABS: INR 1.1; Partial Thromboplastin Time 26.6 SECONDS (22.3-36.8); Prothrombin Time 13.6 Seconds (11.1-14.7)
== END 2022-04-25 12:36 | disposition home or self-care (01) ==
LOC: ANHSURGERY 12:40
PROVIDERS: Anesthesiology; PCP Internal Medicine; Visit Provider Urology
DX: Z01.818 Encounter for other preprocedural examination (principal); E11.22 Type 2 diabetes mellitus with diabetic chronic kidney disease; N18.2 Chronic kidney disease, stage 2 (mild)
CPT/HCPCS: 36415; 85610; 85730

== ENCOUNTER 2022-05-01 17:22 | Observation (INO) | payer MEDICARE, SELFPAY ==
[2022-04-20 15:14] VITALS: BMI 28.7
--- NOTE | 2022-04-20 15:39 | PC.NURSE ---
Report to the Outpatient Waiting Room, entrance under the green pavilion located off [facility], at time __8:15AM on date __05/01/22 . OR Time: __10:15AM . Time changes happen often and if your time is changed the preop area will call you the afternoon before. - You and your visitor will be asked to self-screen and do not enter if you have any COVID symptoms. - We encourage only one visitor and NO visitors under age 16 are allowed at this time. Your visitor will receive communication by the phone number that is given day of service. - The patient visitor is requested to social distance or may leave the building when not with patient due to restrictions. - A mask is required within the hospital. Patients may have clear liquids (water, carbonated beverages, clear teas, apple juice) until 3 hours prior to surgery with a maximum of 20 ounces. - No food from midnight until time of surgery Take the following medications with a SIP of water the morning of surgery: _CARVEDILOL, LEVOTHYROXINE Medications to discontinue per physician __HOLD ALL VITAMINS/SUPPLEMENTS 3 DAYS PRE-OP- LAST DOSE 04/27/22. HOLD ASPIRIN PER DR GARLAND-PT TO CALL Please no make-up, nail kinyarwanda, hairspray, perfume, deodorant, or body powder the day of surgery. No jewelry (including any body piercings) or valuables the day of surgery, leave them at home. Please take a shower or bath the night before, or the morning of, surgery with an antibacterial soap. Wear comfortable, loose fitting clothing. Children are encouraged to wear pajamas. - Jewelry must be removed prior to entering the operating room. Rings and piercings that are not removed may be cut off. - The hospital will not accept responsibility for valuables. - Please leave all valuables, including medications, at home the day of surgery. If you are going home after surgery, a licensed local truck driver must drive you home. - NO public transportation without another adult. - We recommend that an adult stay with you for 24 hours following discharge. - We also recommend that you do not drive, make important decision, drink alcoholic beverages, or take any drugs that were not prescribed by your health care provider for at least 24 hours after your discharge time. Follow any additional instructions given to you from your surgeon. If you or anyone in your household have experienced Covid symptoms in the past week, please notify your surgeon or the nurse liaison at the phone number below for possible testing. Telephone instructions given to __PATIENT and asked if any additional questions and then verbalized understanding. Patient advised to call surgeon office or pre surgery nurse liaison [phone] if any additional questions.
--- NOTE | 2022-04-30 12:06 | WPDANESEPPF ---
Anes - Initial Pre Proc Eval Procedure: Operation Date: 05/01/22 10:15 Proposed Procedures p Circumcision - Bennie Gilmore MD Date/Time: 04/30/22 12:06 Surgeon: Bennie Gilmore MD Pre Op Diagnosis: phimosis Patient Data Age: 72 Gender: M Height: 1.93 m Weight: 107 kg Allergies Allergy/AdvReac Type Severity Reaction Status Date / Time No Known Allergies Allergy Verified 05/01/22 08:52 Home Medications Medication Instructions Recorded Confirmed Type aspirin 81 mg tablet,delayed 81 mg PO DAILY 05/19/19 05/01/22 History release (Adult Low Dose Aspirin) vitamin B complex 1 tablet PO DAILY 05/19/19 05/01/22 History blood sugar diagnostic (Blood #100 ea 08/20/19 04/27/22 Rx Glucose Test strips) blood-glucose meter (Blood Glucose #1 ea 08/20/19 04/27/22 Rx Monitoring kit) omega-3 fatty acids 1,000 mg 1,000 mg PO DAILY 04/25/20 05/01/22 History capsule (Fish Oil Concentrate) lancets 30 gauge (OneTouch Delica #100 ea 10/26/20 04/27/22 Rx Plus Lancet) cholecalciferol (vitamin D3) 50 50 mcg PO DAILY 07/03/21 05/01/22 History mcg (2,000 unit) capsule atorvastatin 40 mg tablet 40 mg PO QAM 09/18/21 05/01/22 History blood sugar diagnostic (OneTouch #100 ea 09/18/21 04/27/22 Rx Verio test strips) sodium chloride 0.65 % nasal spray 1 spray intranasal Q6HR PRN 09/20/21 04/27/22 Rx aerosol (Saline Mist) Congestion #44 mL empagliflozin 10 mg tablet 10 mg PO DAILY #90 tabs 10/11/21 05/01/22 Rx (Jardiance) metformin 1,000 mg tablet 1,000 mg PO HS #90 tabs 11/06/21 05/01/22 Rx levothyroxine 112 mcg tablet See Rx Instructions .Route 12/06/21 05/01/22 Rx .COMPLEX #90 tabs sacubitril 97 mg-valsartan 103 mg 1 tablet PO BID 12/08/21 05/01/22 History tablet (Entresto) pen needle, diabetic 32 gauge x ##100 03/27/22 04/27/22 Rx 1/4 (Novofine 32) febuxostat 40 mg tablet 40 mg PO DAILY 04/20/22 05/01/22 History insulin degludec 200 unit/mL (3 60 unit subcut QAM 04/20/22 05/01/22 History mL) subcutaneous pen latanoprost 0.005 % eye drops 1 drp LEFT EYE HS 04/20/22 05/01/22 History carvedilol 25 mg tablet 25 mg PO Q12H 04/25/22 05/01/22 History fluticasone propionate 50 2 spray intranasal QAM #16 grams 04/25/22 05/01/22 Rx mcg/actuation nasal spray,suspension furosemide 20 mg tablet See Rx Instructions .Route 04/30/22 05/01/22 Rx .COMPLEX #30 tabs spironolactone 25 mg tablet See Rx Instructions .Route 04/30/22 05/01/22 Rx .COMPLEX #30 tabs Other studies: Admit Date: ? ? 09/18/2021 Staff Ordering Physician: ? ? Anibal Amaya MD Hopper Feeder: ? ? Nhi Yancey RDCS Attending Provider: ? ? Jill Cortez MD Referring Physician: ? ? Jose Luis SHERIDAN; Exam Type: ? ? CA echo doppler color flow Study Info Indications ?? ? - CHF Complete two-dimensional, color flow and Doppler transthoracic echocardiogram is performed. Account #: ? ? [id number] Summary ? 1. Complete two-dimensional, color flow and Doppler transthoracic echocardiogram is performed. ? 2. Left ventricular chamber dimension is moderately enlarged. ? 3. Left ventricular systolic function is severely reduced, estimated at 25-30%. ? 4. There is moderate concentric increased left ventricular wall thickness. ? 5. The posterior segment is akinetic. ? 6. Left atrial chamber dimension is moderately enlarged. ? 7. The aortic valve is normal. ? 8. There is mild mitral valve regurgitation. Patient hx anesthesia problems: none Family hx anesthesia problems: none Results Review: All pre-operative results and documents have been reviewed as part of the pre-operative evaluation. [facility] Past Medical History Medical History (Updated 04/25/22 @ 13:11 by Floridalma Riggs, [facility]) Benign essential hypertension BPH (benign prostatic hyperplasia) Cardiomyopathy Cataract CHF (congestive heart failure) CKD (chronic kidney disease) CKD stage 2 due to type 2 diabetes mellitus
[2022-05-01] VITALS (18 sets, daily range): BP systolic 137–168; BP diastolic 48–74; PULSE 40–55; RESP 10–18; TEMP 36–36.6; O2SAT 96–100; BMI 28.1
[2022-05-01] MEDS: LACTATED RINGERS 1,000 ML 30 ML IV CONT (09:09)
[2022-05-01 09:13] LABS: Glucose Point of Care 72 mg/dl (65-105)
--- NOTE | 2022-05-01 09:21 | WPDHPUPDATE1 ---
History and Physical Update Update Date/Time: 05/01/22 09:21 History and Physical has been reviewed, including an updated exam of the patient. There are NO changes in the patient's condition. Risks, benefits, and alternatives have been discussed and questions answered. Patient agrees to proceed with procedure. Proceed with circumcision
--- NOTE | 2022-05-01 10:46 | SUR.PREOP ---
pt informed delay in procedure.
[2022-05-01] MEDS: ceFAZolin 2 GM/D5W 50 ML 2 GM/50 ML BAG IVPB (11:28)
[2022-05-01] MEDS: BUPIVACAINE HCL 0.5% PF 30 ML VIAL INFILTRATE (12:00)
--- NOTE | 2022-05-01 12:31 | W.PM.PROC2 ---
Procedure Note - Detailed Date of Procedure 05/01/22 Pre-op Diagnosis phimosis Post-op Diagnosis Same Procedure Performed Circumcision Surgeon Bennie Gilmore MD Description of Procedure The patient is brought to the operative suite areas prepped and draped in a routine sterile fashion while in a supine position. The lines of circumcision are outlined using a sterile marking pen. 2 circumferential circumcising incisions were made and carried down to Colle's fascia. The penile foreskin is circumferentially excised. Hemostasis is obtained with electric cautery. The edges of the penile skin reapproximated using interrupted 4-0 chromic. A penile block is administered at the base of the penis with 0.25% bupivacaine. The patient was taken to the recovery room in good condition. EBL was approximately 10cc. Estimated Blood Loss 10 Drains No Packing No Pathology Yes Complications No immediate complications Condition Stable
[2022-05-01] MEDS: DEXTROSE 50% 25 GM/50 ML SYRINGE IV PUSH ×2 (12:44→16:33)
[2022-05-01 12:46] LABS: Glucose Point of Care 40 mg/dl (65-105)
--- NOTE | 2022-05-01 13:14 | SUR.PHASEI ---
Dr. Webber aware of A-fib and said it isn't new onset.
--- NOTE | 2022-05-01 13:27 | ECG_ITS ---
Measurements Intervals [place] Rate: 47 P: [place]: 0 QRS: -18 QRSD: 99 T: 150 QT: 462 QTc: 410 Interpretive Statements SINUS BRADYCARDIA WITH POSSIBLE BLOCKED PACS MODERATE T-WAVE ABNORMALITY, CONSIDER LATERAL ISCHEMIA [-0.1+ mV T WAVE IN I/aVL/V5/V6] COMPARED TO ECG 09/18/2021 21:44:56 SINUS BRADYCARDIA NOW PRESENT BLOCKED PACS PRESENT Electronically Signed On 05-01-2022 16:24:59 CDT by Luis Vaughn M.D.
--- NOTE | 2022-05-01 13:50 | SUR.PHASEI ---
Patient is waiting for cardiology consult.
[2022-05-01 14:18] LABS: Glucose Point of Care 102 mg/dl (65-105)
--- NOTE | 2022-05-01 14:26 | ECG_ITS ---
Measurements Intervals [place] Rate: 49 P: [place]: 0 QRS: -21 QRSD: 95 T: 155 QT: 467 QTc: 425 Interpretive Statements SINUS BRADYCARDIA WITH POSSIBLE BLOCKED PACS ST DEVIATION AND MODERATE T-WAVE ABNORMALITY, CONSIDER LATERAL ISCHEMIA [-0.1+ mV T WAVE IN I/aVL/V5/V6] COMPARED TO ECG 05/01/2022 13:38:36 NO SIGNIFICANT CHANGES Electronically Signed On 05-01-2022 16:27:41 CDT by Luis Vaughn M.D.
--- NOTE | 2022-05-01 14:45 | PM.CNCAR ---
Assessment and Plan Assessment and plan (1) Bradycardia: Code(s): R00.1 - Bradycardia, unspecified Status: Acute Assessment and Plan: ECG appears to be most likely blocked PACs, no evidence of AV block at this time. Patient already took Coreg 25mg this AM. Recommend to admit patient overnight to watch telemetry for any progression of his bradycardia. No further beta-haja doses today. If no evidence of AV block on tele and only shows blocked PACs, will decrease his dose of Coreg to 12.5mg BID starting tomorrow morning. Keep electrolytes optimized. (2) CHF (congestive heart failure): Code(s): I50.9 - Heart failure, unspecified Status: Acute Assessment and Plan: Patient is well compensated on exam. Continue home heart failure medications. History of Present Illness History of Present Illness Consult date/time: 05/01/22 14:45 Requesting physician: Nicolas Webber MD Consult reason: Other (bradycardia) Reason For Visit: phimosis Narrative: Patient is a 72-year-old male with a history of nonischemic cardiomyopathy who follows with Dr. Amaya. We are being consulted for bradycardia after circumcision surgery. Patient last saw Dr. Amaya in January. He previously had an EF of 25-30%, which recovered to 40%. Patient had a Holter monitor done in January which did not show any significant arrhythmias. His Coreg was recently increased to 25mg PO BID. Patient did take his Coreg this morning. Patient seen and examined in the PACU. He denies any chest pain, palpitations, lightheadedness/dizziness, syncope. Telemetry shows patient currently in the high 40s to low 50s with his heart rate. EKG showing likely blocked PACs. No evidence of AV block. Review of Systems Constitutional: Constitutional: Denies body ache(s), Denies fatigue and Denies weakness Eyes: Eyes: Reports no additional eye complaints ENT: Denies dysphagia and Denies epistaxis Cardiovascular: Cardiovascular: Denies chest pain, Denies leg edema, Denies lightheadedness and Denies palpitations Respiratory: Respiratory: Denies dyspnea Gastrointestinal: Gastrointestinal: Denies abdominal pain Musculoskeletal: Musculoskeletal: Reports no additional musculoskeletal complaints Integumentary/Breasts: Skin/Breast: Reports system reviewed and no additional complaints, except as docu Neurologic: Reports system reviewed and no additional complaints, except as documented Hematologic/Lymphatic: Hematologic/Lymphatic: Denies easy bleeding and Denies easy bruising PMFSH Past Medical History Medical History Benign essential hypertension BPH (benign prostatic hyperplasia) Cardiomyopathy Cataract CHF (congestive heart failure) CKD (chronic kidney disease) 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, insulin dependent Elevated PSA Encounter for routine adult health examination without abnormal findings Epistaxis Erectile dysfunction Gout Hematuria History of prostate cancer Hypothyroidism (acquired) Impacted cerumen Mixed hyperlipidemia Pain and swelling of right ankle Pain and swelling of toe of right foot Vitamin D deficiency Surgical History Surgical History History of carpal tunnel surgery of left wrist History of carpal tunnel surgery of right wrist History of knee replacement both knees right was in 2011 left was in 2013 Hx of prostatectomy S/P cholecystectomy Family History Family History Sibling Family history of diabetes mellitus in first degree relative Diabetes mellitus Sibling Cancer Other Hypertension Social History Social History Social History: Patient lives with his . He drinks 2 alcoholic drinks per month on average. Lifelong nonsmoker. No history of drug u
--- NOTE | 2022-05-01 15:19 | SUR.PHASEI ---
1425 Dr Vaughn bedside from cardiology [facility] will need to admit 1435 Dr Blanco given update on patient cardiac changes and request hospitalist to admit 1500 patient spoke to his and nurse gave update to her as well 1520 new dressing and new gown applied because when urinated it got a little wet.
[2022-05-01 16:27] LABS: Glucose Point of Care 38 mg/dl (65-105)
[2022-05-01 17:03] LABS: Glucose Point of Care 72 mg/dl (65-105)
--- NOTE | 2022-05-01 17:37 | ADMGEN ---
This patient, Raghavendra Nogueira, was admitted to 3 [facility] Surg Room 313-01. Patient/family oriented to hospital policies and general routines including ID bracelet, bed and alarms, visiting hours, pain management, procedures, bathroom and other care routines, personal items, smoking policy, room service/diet, and visiting hours. Information on how to activate the Rapid Response Team has been discussed. Patient/Family are encouraged to report perceived risks to care and to ask questions if they do not understand what they are told or what they should do.
[2022-05-01 19:28] LABS: Hematocrit 46.1 % (42.0-52.0); Hemoglobin 15.1 g/dL (14.0-18.0); Mean Corpuscular HGB Conc 32.8 g/dl (32-36); Mean Corpuscular Hemoglobin 30.3 pg (26-34); Mean Corpuscular Volume 92.6 fl (80-100); Mean Platelet Volume 11.2 fl (7.4-10.4); Platelet Count Result 203 k/mm3 (150-375); Red Blood Count 4.98 M/mm3 (4.6-6.20); Red Cell Distribution Width 15.1 % (11.5-14.5); White Blood Count 6.3 K/mm3 (4.5-10.0)
[2022-05-01 19:37] LABS: Alanine Aminotransferase 19 U/L (6-50); Albumin Level 3.9 g/dL (3.5-5.1); Alkaline Phosphatase 73 U/L (38-126); Anion Gap 6 mmol/L (8-16); Aspartate Amino Transferase 22 U/L (17-59); Bilirubin,Total 1.1 mg/dL (0.2-1.3); Blood Urea Nitrogen 26 mg/dL (9-20); Calcium 8.7 mg/dL (8.4-10.2); Carbon Dioxide 27 mmol/L (22-30); Chloride 109 mmol/L (98-107); Estimated CRCL calculation 48 ml/min; Estimated Glomerular Filt Rate 52; Glucose 151 mg/dL (65-110); Magnesium 2.5 mg/dL (1.6-2.3); Potassium 5.2 mmol/L (3.4-5.0); Sodium 142 mmol/L (137-145)
--- NOTE | 2022-05-01 20:00 | PM.IMHP ---
H&P: HPI History of Present Illness Date/Time: 05/01/22 20:00 Chief Complaint: Perioperative bradycardia. Narrative: This is a very pleasant 72-year-old male who is being admitted from PACU for further evaluation and monitoring after he was found to be bradycardic in the perioperative period. His medical history is significant for nonischemic cardiomyopathy with an EF as low as 25 to 30% which has recovered to 40%, hypertension, chronic kidney disease, insulin-dependent diabetes, hypothyroidism, and other comorbidities. He presented today for circumcision for phimosis and his surgery seemed to go smoothly. Postoperatively he was bradycardic and there were concerns for AV block on his EKG. He has since been seen by Dr. Vaughn and she believes the EKG demonstrates blocked PACs and not AV block however she would like the patient admitted overnight for closer monitoring. The patient tells me he has had similar episodes of bradycardia in the past and he has never been symptomatic. At the time my evaluation he has no complaints and he specifically denies syncope, near syncope, lightheadedness, chest pain, palpitations, shortness of breath, nausea, vomiting, and diaphoresis. His pain is pretty well controlled at this time. Review of Systems Review of Systems: Twelve systems were reviewed and are negative except for as per HPI. FORMERLY [facility] Past Medical History Medical History (Updated 05/01/22 @ 23:58 by Adelaida Go PA-C) Benign essential hypertension Benign prostatic hyperplasia Chronic kidney disease, stage 3 Elevated PSA Erectile dysfunction Gout History of prostate cancer Hypothyroidism (acquired) Insulin dependent type 2 diabetes mellitus Mixed hyperlipidemia Nonischemic cardiomyopathy Vitamin D deficiency Surgical History Surgical History (Updated 05/01/22 @ 23:52 by Adelaida Go PA-C) History of bilateral carpal tunnel release History of bilateral knee replacement History of cholecystectomy History of prostatectomy Family History Family History Sibling Family history of diabetes mellitus in first degree relative Diabetes mellitus Sibling Cancer Other Hypertension Social History Social History (Updated 05/01/22 @ 23:53 by Adelaida Go PA-C) Social History: Surrogate medical decision maker: Gardenia Siegel, spouse. Code status: Full code. Smoking status: Never smoker Second hand tobacco smoke exposure: No Alcohol intake: current Drinks per week: 1 Substance use: never Living arrangements: with family Additional living arrangements comments: The patient lives in [place] with his . Additional occupation/education comments: Retired from the [employer]. Spiritual care concerns: No Has the Lack of Transportation Kept You From Medical Appointments or From Getting Medications?: No Within the Past 12 Months, Were You Worried Whether Your Food Would Run Out Before You Got Money to Buy More?: Never True What is Your Housing Situation Today?: I Have Housing Are You Worried That in the Next 2 Months, You May Not Have Your Own Housing to Live In?: No Do You Have Trouble Paying Your Heating Or Electricity Bill?: No Do You Have Trouble Paying For Medicines?: No Are You Currently Unemployed and Looking for Work?: No Highest Level of Education Completed: Bachelor's Degree Do You Have Trouble With Childcare or the Care of a Family Member?: No Meds Home Medications and Allergies Home Medications Medication Instructions Recorded Confirmed Type aspirin 81 mg tablet,delayed 81 mg PO DAILY 05/19/19 05/01/22 History release (Adult Low Dose Aspirin) vitamin B complex 1 tablet PO DAILY 05/19/19 05/01/22 History blood sugar diagnostic (Blood #100 ea 08/20/19 05/01/22 Rx Glucose Test strips) blood-glucose meter (Blood Glucose #1 romy 08/20/19 05/01/22 Rx Monitoring kit) omega-3 fatty acids
[2022-05-01 21:41] LABS: Thyroid Stimulating Hormone Reflex 0.631 uIU/mL (0.465-4.68)
[2022-05-01 22:14] LABS: Hemoglobin A1C 6.3 % (<5.7)
[2022-05-02] VITALS: PULSE 54
--- NOTE | 2022-05-02 01:24 | PC.NURSE ---
calling Md Kiser bladder scan is 549 ml abd 532ml, c/o pain in abd, relieved with voiding, only urine 200ml at a time, inquiring about bird
[2022-05-02 01:25] VITALS: BP 155/64; PULSE 47; RESP 16; TEMP 36; O2SAT 98
--- NOTE | 2022-05-02 01:35 | PC.NURSE ---
called Bennie Gilmore MD inquired about bird suggested straight cath q6hrs if bladder scan >350ml
--- NOTE | 2022-05-02 01:39 | PC.NURSE ---
pt declined straight cath at this time, informed pt option is available if needed.
[2022-05-02 04:00] VITALS: PULSE 46
[2022-05-02] MEDS: LEVOTHYROXINE SODIUM 112 MCG TABLET PO (05:35)
[2022-05-02 06:00] VITALS: BP 141/53; PULSE 58; RESP 16; TEMP 36.4; O2SAT 98
[2022-05-02 06:10] LABS: Glucose Point of Care 94 mg/dl (65-105)
--- NOTE | 2022-05-02 06:14 | PC.NURSE ---
bs 94 this am
[2022-05-02 07:12] LABS: Anion Gap 7 mmol/L (8-16); Blood Urea Nitrogen 24 mg/dL (9-20); Carbon Dioxide 27 mmol/L (22-30); Chloride 109 mmol/L (98-107); Estimated CRCL calculation 51 ml/min; Estimated Glomerular Filt Rate 56; Glucose 76 mg/dL (65-110); Magnesium 2.4 mg/dL (1.6-2.3); Potassium 4.3 mmol/L (3.4-5.0); Sodium 143 mmol/L (137-145)
--- NOTE | 2022-05-02 07:51 | WPDANESPN ---
Anes - Prog Note Post-Op Date/Time: 05/02/22 07:51 Vital Signs: Last Vital Signs Temp 36.0 C L 05/02/22 01:25 Pulse 46 L 05/02/22 04:00 Resp 16 05/02/22 01:25 BP 155/64 H 05/02/22 01:25 Pulse Ox 98 05/02/22 01:25 O2 Del Method Room Air 05/01/22 20:00 O2 Flow Rate 8 05/01/22 13:05 Pain Score (VAS): 0 I/O: Intake & Output 05/01/22 05/01/22 05/02/22 15:59 23:59 07:59 Intake Total 150 Output Total 100 Balance 50 Laboratory Tests 05/01/22 19:22 05/02/22 06:30 05/01/22 05/01/22 05/01/22 09:08 12:40 12:56 WBC RBC Hgb Hct MCV MCH MCHC RDW Plt Count MPV Sodium Potassium Chloride Carbon Dioxide Anion Gap BUN Creatinine Estim Creat Clear Calc Estimated GFR Glucose POC Capillary Glucose 72 40 L* 102 Hemoglobin A1c Calcium Magnesium Total Bilirubin AST ALT Alkaline Phosphatase Total Protein Albumin TSH (Reflex) 05/01/22 05/01/22 05/01/22 16:23 17:01 19:22 WBC 6.3 RBC 4.98 Hgb 15.1 Hct 46.1 MCV 92.6 MCH 30.3 MCHC 32.8 RDW 15.1 H Plt Count 203 MPV 11.2 H Sodium Potassium Chloride Carbon Dioxide Anion Gap BUN Creatinine Estim Creat Clear Calc Estimated GFR Glucose POC Capillary Glucose 38 L* 72 Hemoglobin A1c Calcium Magnesium Total Bilirubin AST ALT Alkaline Phosphatase Total Protein Albumin TSH (Reflex) 05/01/22 05/01/22 05/01/22 19:22 19:22 19:22 WBC RBC Hgb Hct MCV MCH MCHC RDW Plt Count MPV Sodium 142 Potassium 5.2 H Chloride 109 H Carbon Dioxide 27 Anion Gap 6 L BUN 26 H Creatinine 1.60 H Estim Creat Clear Calc 48 Estimated GFR 52 L Glucose 151 H POC Capillary Glucose Hemoglobin A1c 6.3 H Calcium 8.7 Magnesium 2.5 H Total Bilirubin 1.1 AST 22 ALT 19 Alkaline Phosphatase 73 Total Protein 7.0 Albumin 3.9 TSH (Reflex) 0.631 10/26/22 10/26/22 06:08 06:30 WBC RBC Hgb Hct MCV MCH MCHC RDW Plt Count MPV Sodium 143 Potassium 4.3 Chloride 109 H Carbon Dioxide 27 Anion Gap 7 L BUN 24 H Creatinine 1.50 H Estim Creat Clear Calc 51 Estimated GFR 56 L Glucose 76 POC Capillary Glucose 94 Hemoglobin A1c Calcium 8.0 L Magnesium 2.4 H Total Bilirubin AST ALT Alkaline Phosphatase Total Protein Albumin TSH (Reflex) Patient Feedback: Patient satisfied with anesthetic care.
--- NOTE | 2022-05-02 07:58 | WPDUROPN2 ---
Progress Note: A&P Assessment and Plan (1) Phimosis: Code(s): N47.1 - Phimosis Status: Acute Assessment and Plan: Has done well from that standpoint. Dressing can be removed at patient's discretion today. Apply antibiotic ointment to incision b.i.d.. Follow up in 3-4 weeks time. (2) Incomplete bladder emptying: Code(s): R33.9 - Retention of urine, unspecified Status: Acute Assessment and Plan: This is a new problem just noted last evening. Will check another residual today. Further recommendations will be made pending his PVR. Subjective Subjective Date/Time Seen: 05/02/22 07:58 Post Op day: 1 (The patient is brought to the operative suite areas prepped and draped in a routine sterile fashion while in a supine position. The lines of circumcision are outlined using a sterile marking pen. 2 circumferential circumcising incisions were made and carried down to Colle's fascia. The penile for) Principal diagnosis: Phimosis and bradycardia Interval history: Doing well from urologic standpoint. And as noted however that his postvoid residual was elevated approximately 500 cc. He had refused a catheter to be placed last night. Will recheck PVR this morning. Cardiac issues are managed by cardiology as well as primary care. Review of Systems Review of Systems: All systems reviewed & are unremarkable except as noted in HPI and below Exam Const: General: cooperative, comfortable and no acute distress Resp: Effort & Inspection: normal respiratory effort : Penis: Yes circumcised (Typical postop edema.) Objective Data Vital Signs Vital Signs: Vital Signs - 24 hr 05/01/22 08:35 05/01/22 12:34 05/01/22 12:50 Temperature 36.0 C L 36.6 C Pulse Rate 40 L 55 L 52 L Respiratory Rate 16 13 17 Blood Pressure 148/63 H 137/70 141/69 H Pulse Oximetry 100 100 100 Oxygen Delivery Room Air Simple Face Mask Simple Face Mask Oxygen Flow Rate 6 8 05/01/22 13:05 05/01/22 13:20 05/01/22 13:35 Temperature Pulse Rate 51 L 50 L 52 L Respiratory Rate 14 14 16 Blood Pressure 152/63 H 163/68 H 159/65 H Pulse Oximetry 98 99 97 Oxygen Delivery Simple Face Mask Room Air Room Air Oxygen Flow Rate 8 05/01/22 14:05 05/01/22 14:20 05/01/22 14:35 Temperature Pulse Rate 51 L 53 L 53 L Respiratory Rate 10 L 16 13 Blood Pressure 163/68 H 162/64 H 157/74 H Pulse Oximetry 97 97 98 Oxygen Delivery Room Air Room Air Room Air Oxygen Flow Rate 05/01/22 14:50 05/01/22 15:05 05/01/22 15:35 Temperature Pulse Rate 52 L 48 L 53 L Respiratory Rate 15 14 16 Blood Pressure 157/73 H 155/70 H 162/64 H Pulse Oximetry 99 99 99 Oxygen Delivery Room Air Room Air Room Air Oxygen Flow Rate 05/01/22 16:05 05/01/22 16:35 05/01/22 17:05 Temperature Pulse Rate 47 L 48 L 45 L Respiratory Rate 17 16 18 Blood Pressure 167/64 H 153/48 H 150/68 H Pulse Oximetry 97 99 100 Oxygen Delivery Room Air Room Air Room Air Oxygen Flow Rate 05/01/22 20:00 05/01/22 20:00 05/01/22 19:45 Temperature 36.0 C L Pulse Rate 45 L 52 L 52 L Respiratory Rate 18 16 Blood Pressure 168/58 H Pulse Oximetry 100 96 Oxygen Delivery Room Air Oxygen Flow Rate 05/01/22 22:00 05/02/22 00:00 05/02/22 01:25 Temperature 36.0 C L 36.0 C L Pulse Rate 52 L 54 L 47 L Respiratory Rate 16 16 Blood Pressure 168/58 H 155/64 H Pulse Oximetry 97 98 Oxygen Delivery Oxygen Flow Rate 05/02/22 04:00 Temperature Pulse Rate 46 L Respiratory Rate Blood Pressure Pulse Oximetry Oxygen Delivery Oxygen Flow Rate Intake/Output Intake/Output: Intake & Output 04/29/22 04/30/22 05/01/22 05/02/22 23:59 23:59 23:59 23:59 Intake Total 150 Output Total 100 Balance 50 Meds/Results Medications: Active Medications Generic Name Dose Route Start Last Admin Trade Name Freq PRN Reason Stop Dose Admin Acetaminophen 650 mg 05/01/22 19:05 Acetaminophen 325 Mg Tabl
[2022-05-02 08:00] VITALS: PULSE 59
[2022-05-02] MEDS: INSULIN GLARGINE (*BKC) 100 UNITS/ML 40 UNITS SUB-Q (08:09)
[2022-05-02] MEDS: FLUTICASONE PROPIONATE 0.05% NA SPR 16 GM BTL (*BKC) 2 SPRAY NASAL (08:11)
[2022-05-02] MEDS: CHOLECALCIFEROL 1,000 UNITS TABLET 2000 UNITS PO (08:12)
[2022-05-02] MEDS: VITAMIN B COMPLEX CAPSULE 1 CAP PO (08:12)
[2022-05-02] MEDS: ASPIRIN 81 MG ENTERIC TABLET PO (08:13)
[2022-05-02] MEDS: OMEGA 3 POLYUNSAT FATTY ACIDS 1 GM CAP PO (08:13)
[2022-05-02] MEDS: SACUBITRIL/VALSARTAN 97-103 MG TABLET 1 TAB PO (08:13)
[2022-05-02] MEDS: FEBUXOSTAT 40 MG TABLET PO (08:13)
[2022-05-02] MEDS: FUROSEMIDE 20 MG TABLET PO (08:13)
[2022-05-02] MEDS: ATORVASTATIN 40 MG TABLET PO (08:13)
[2022-05-02 08:19] LABS: Glucose Point of Care 80 mg/dl (65-105)
--- NOTE | 2022-05-02 09:09 | PM.PNCARD ---
Progress Note: A&P Assessment and Plan (1) Bradycardia: Code(s): R00.1 - Bradycardia, unspecified Status: Acute Assessment and Plan: ECG appears to be most likely blocked PACs, no evidence of AV block at this time. Telemetry overnight and this morning with sinus bradycardia with occasional PACs - no evidence of AV block or other significant arrhythmias. Can restart Coreg at lower dose of 12.5mg BID. Okay to discharge home from a cardiac standpoint. 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 (2) Nonischemic cardiomyopathy: Code(s): I42.8 - Other cardiomyopathies Status: Acute Assessment and Plan: Compensated. Adjust beta-haja dose as noted above. Otherwise, continue other home cardiac GDMT meds. Time Spent With Patient Time with patient: 15 - 25 minutes Subjective Date/time seen: 05/02/22 09:09 Interval history: Reason for visit: Bradycardia Patient is a 72-year-old male with a history of nonischemic cardiomyopathy who follows with Dr. Amaya. We are being consulted for bradycardia after circumcision surgery. Patient last saw Dr. Amaya in January. He previously had an EF of 25-30%, which recovered to 40%. Patient had a Holter monitor done in January which did not show any significant arrhythmias. His Coreg was recently increased to 25mg PO BID. Patient did take his Coreg this morning. Patient seen and examined in the PACU. He denies any chest pain, palpitations, lightheadedness/dizziness, syncope. Telemetry shows patient currently in the high 40s to low 50s with his heart rate. EKG showing likely blocked PACs. No evidence of AV block. 05/02: No acute events overnight. Patient without any cardiac symptoms. Telemetry reviewed - showed sinus bradycardia with occasional PACs, however, no evidence of AV block. Review of Systems Constitutional: Constitutional: Denies body ache(s), Denies fatigue and Denies weakness Eyes: Eyes: Reports no additional eye complaints ENT: Denies dysphagia and Denies epistaxis Cardiovascular: Cardiovascular: Denies chest pain, Denies leg edema, Denies lightheadedness and Denies palpitations Respiratory: Respiratory: Denies dyspnea Gastrointestinal: Gastrointestinal: Denies abdominal pain Musculoskeletal: Musculoskeletal: Reports no additional musculoskeletal complaints Integumentary/Breasts: Skin/Breast: Reports system reviewed and no additional complaints, except as docu Neurologic: Reports system reviewed and no additional complaints, except as documented Hematologic/Lymphatic: Hematologic/Lymphatic: Denies easy bleeding and Denies easy bruising Exam Const: General: comfortable and no acute distress HENMT: Mouth: Yes moist mucous membranes Eyes: General: appearance normal, both eyes and all related structures Neck: Neck: supple and no JVD Resp: Effort & Inspection: normal respiratory effort Auscultation: clear to auscultation bilaterally Cardio: Rate: regular rate Rhythm: regular rhythm Heart sounds: no murmurs GI: GI Palp: Yes Soft to palpation and No Tenderness to palpation present (GI) Skin: General skin exam: normal color Neuro: Speech: normal speech Extrem: General: no edema Psych: Mental Status: mental status grossly normal Objective Data Vital Signs Vital Signs: Vital Signs - 24 hr 05/01/22 12:34 05/01/22 12:50 05/01/22 13:05 Temperature 36.6 C Pulse Rate 55 L 52 L 51 L Respiratory Rate 13 17 14 Blood Pressure 137/70 141/69 H 152/63 H Pulse Oximetry 100 100 98 Oxygen Delivery Simple Face Mask Simple Face Mask Simple Face Mask Oxygen Flow Rate 6 8 8 05/01/22 13:20 05/01/22 13:35 05/01/22 14:05 Temperature Pulse Rate 50 L 52 L 51 L Respiratory Rate 14 16 10 L Blood Pressure 163/68 H 159/65 H 163/68 H Pulse Oximetry 99 97 97 Oxygen Delivery Room Air Room Air Room Air Oxygen Flow Rate 05/01/22 14:20 05/01/22 14:35 05/01/22 14:50 Temperature Pulse Rat
--- NOTE | 2022-05-02 11:10 | PC.NURSE ---
Let hospitalist and urologist know that I bladder scanned pt per order and got 400 ml after pt peeing 250 ml
[2022-05-02 11:33] LABS: Glucose Point of Care 165 mg/dl (65-105)
[2022-05-02 12:00] VITALS: PULSE 45
--- NOTE | 2022-05-02 14:06 | PM.DS ---
DS: Admitting Diagnosis Discharge Date 05/02/2022 1407 Admitting Diagnosis (1) Bradycardia (2) Chronic kidney disease, stage 3 (3) Insulin dependent type 2 diabetes mellitus (4) Benign essential hypertension (5) Nonischemic cardiomyopathy (6) Hypothyroidism (acquired) (7) Phimosis DS: Discharge Diagnosis Discharge Diagnosis (1) Bradycardia: Code(s): R00.1 - Bradycardia, unspecified Status: Acute Assessment and Plan: Noted to be bradycardic 30-40 bpm in PACU 05/01/22 and concerned for AV block. Patient was admitted overnight for telemetry monitoring and cardiology evaluation. EKG evaluated and showed likely blocked PACs but no evidence of AV block. Patient last saw Dr. Amaya in January of this year. He previously had an EF of 25-30%, which recovered to 40%. Patient had a Holter monitor done in January which did not show any significant arrhythmias. His Coreg was recently increased to 25mg PO BID. Patient did take his Coreg the morning of surgery. Patient's coreg was decreased from 25 mg BID to 12.5 mg BID postop. He was asymptomatic; he denied chest pain, palpitations, lightheadedness/dizziness, or syncope. He was counseled to check pulse and BP at home, record for follow up and keep scheduled Cardiology appointment. (2) Phimosis: Code(s): N47.1 - Phimosis Status: Acute Assessment and Plan: S/p circumcision 05/01/22, followed by Urology, stable. (3) Incomplete bladder emptying: Code(s): R33.9 - Retention of urine, unspecified Status: Acute Assessment and Plan: PVR 400 mL. Urology following. Tamsulosin started at discharge. (4) Chronic kidney disease, stage 3: Qualifiers: Chronic kidney disease stage 3 subtype: stage 3a (GFR 45-59) Qualified Code(s): N18.31 - Chronic kidney disease, stage 3a Code(s): N18.30 - Chronic kidney disease, stage 3 unspecified Status: Chronic Assessment and Plan: Chronic, stable. 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 (6) Benign essential hypertension: Code(s): I10 - Essential (primary) hypertension Status: Chronic Assessment and Plan: Chronic, stable. Continued on Entresto, spironolactone, furosemide, carvedilol at lowered dose (7) Nonischemic cardiomyopathy: Code(s): I42.8 - Other cardiomyopathies Status: Chronic Assessment and Plan: Chronic, stable, continued on aspirin, lipitor, furosemide, spironolactone, coreg at lowered dose, empagliflozin, and Entresto (8) Hypothyroidism (acquired): Code(s): E03.9 - Hypothyroidism, unspecified Status: Chronic Assessment and Plan: Chronic, stable, TSH 0.631 DS: Summary Hospital Course Reason for hospitalization: Perioperative bradycardia Hospital Course: Raghavendra Nogueira is a 72-year-old male admitted from PACU for further evaluation and monitoring after he was found to be bradycardic in the perioperative period. His medical history is significant for nonischemic cardiomyopathy with an EF as low as 25 to 30% which has recovered to 40%, hypertension, chronic kidney disease, insulin-dependent diabetes, hypothyroidism, and other comorbidities. He presented on 05/01/22 for circumcision for phimosis and his surgery seemed to go smoothly. Postoperatively he was bradycardic in the 30-40s and there were concerns for AV block on his EKG. He was given atropine in PACU. He has since been seen by Dr. Vaughn and she believes the EKG demonstrates blocked PACs and not AV block however she would like the patient admitted overnight for closer monitoring. The patient reported similar episodes of bradycardia in the past and he has never been symptomatic. He denied synco
== END 2022-05-02 14:20 | disposition home or self-care (01) ==
LOC: ANH3MEDSUR 18:13 → ANHSURGERY 18:48 → ANH3MEDSUR 18:48
PROVIDERS: Physician Assistant; Admitting Provider Urology; PCP Internal Medicine; Visit Provider Urology
PROC: (CPT 54161; principal; 2022-05-01 10:15)
DX: R00.1 Bradycardia, unspecified (principal); N47.1 Phimosis; R33.9 Retention of urine, unspecified; I34.0 Nonrheumatic mitral (valve) insufficiency; I50.20 Unspecified systolic (congestive) heart failure; N40.0 Benign prostatic hyperplasia without lower urinary tract symptoms; I13.0 Hypertensive heart and chronic kidney disease with heart failure and stage 1 through stage 4 chronic kidney disease, or unspecified chronic kidney disease; E11.22 Type 2 diabetes mellitus with diabetic chronic kidney disease; N18.30 Chronic kidney disease, stage 3 unspecified; E03.9 Hypothyroidism, unspecified; E78.2 Mixed hyperlipidemia; I42.8 Other cardiomyopathies; R94.31 Abnormal electrocardiogram [ECG] [EKG]; Z79.82 Long term (current) use of aspirin; F10.90 Alcohol use, unspecified, uncomplicated; Z79.4 Long term (current) use of insulin; Z79.84 Long term (current) use of oral hypoglycemic drugs; Z79.899 Other long term (current) drug therapy; Z83.3 Family history of diabetes mellitus; Z82.49 Family history of ischemic heart disease and other diseases of the circulatory system
CPT/HCPCS: 54161; 36415; 80048; 80053; 82948; 83036; 83735; 84443; 85027; 85610; 85730; 88304; 93005; A9270; G0378; J0461; J0690; J1815; J2405; J2704; J3010; J7120

== ENCOUNTER 2022-07-11 14:10 | Outpatient (CLI) | payer MEDICARE, SELFPAY ==
--- NOTE | ~2022-07-11 | XR_ITS ---
XR ribs RT 2V w CXR 2V DATE: 07/11/2022 14:32 INDICATION: Chest pain. Right pleural pain. TECHNIQUE: PA and lateral chest. 3 views of the right ribs. COMPARISON: 09/18/2021 CTA chest 09/18/2021 2 view chest FINDINGS: No right rib fracture or bone destruction is detected. There is minimal infiltrate or atelectasis in the right lung base, primarily laterally. The lungs oth erwise appear clear. Heart size is within normal range. There is mild aortic unfolding. No hilar or mediastinal enlargemen t. No pleural effusion or pulmonary vascular congestion or pneumothorax. Surgical clips, right upper quadrant, likely due to cholecystectomy. IMPRESSION: Minimal infiltrate or atelectasis in the right lung base No rib fracture or bone destruction is detected Reviewed, dictated and finalized at location [facility]
== END 2022-07-11 14:11 | disposition home or self-care (01) ==
PROVIDERS: PCP Internal Medicine; Visit Provider Internal Medicine
DX: R07.89 Other chest pain (principal); R07.81 Pleurodynia
CPT/HCPCS: 71046; 71100

== ENCOUNTER 2022-07-18 09:56 | Outpatient (CLI) | payer MEDICARE, SELFPAY ==
--- NOTE | ~2022-07-18 | XR_ITS ---
XR chest 2V DATE: 07/18/2022 10:12 INDICATION: Pneumonia follow-up. Recent chest pain, right pleural pain. TECHNIQUE: PA and lateral views COMPARISON: 07/11/2022 PA and lateral chest and right RIBS FINDINGS: Minimal infiltrate or atelectasis in the right lung base appears stable since 07/2022. The lungs are otherwise clear. No pleural effusion or pulmonary vascular congestion or pneumothorax. Normal heart size. No hilar or mediastinal enlargement. Mild aortic unfolding. Surgical clips, right upper quadrant, consistent with cholecystectomy. Included skeletal structures a re unremarkable. IMPRESSION: Minimal infiltrate or atelectasis at right lung base; no significant change since 3 Reviewed, dictated and finalized at location A. ZEL TWISTER IMPRESSION: Minimal infiltrate or atelectasis at right lung base; no significan t change since 07/11/2022
== END 2022-07-18 09:57 | disposition home or self-care (01) ==
PROVIDERS: PCP Internal Medicine; Visit Provider Internal Medicine
DX: R07.89 Other chest pain (principal); R91.8 Other nonspecific abnormal finding of lung field
CPT/HCPCS: 71046

== ENCOUNTER 2022-08-06 12:09 | Outpatient (CLI) | payer MEDICARE, SELFPAY ==
--- NOTE | ~2022-08-06 | PE_ITS ---
EXAMINATION: PET_PETPSMAST_PT DATE: 08/06/2022 14:52 INDICATION: Prostate cancer TECHNIQUE: 10.396 mCi of pipflufolastat F-18 (18-F-DCFPyL) was administered i.v. Low dose computed t omography (CT) images were acquired from the base of the brain to the base of the brain to the proxim al thighs for attenuation correction and anatomic localization. Positron emission tomography (PET) im ages were acquired in the same distribution beginning 93 minutes after injection. Images including fu sed PET/CT images were reconstructed in axial, coronal, and sagittal planes. Automated exposure contr ol technique was employed. The dose-length product was 862.88 mGy-cm. COMPARISON: 02/28/2022 FINDINGS: Head/neck: Typical pattern of symmetric physiologic increased activity in the lacrimal, parotid and submandibula r glands as well as along the mucosa of the nasal cavity, and nasopharynx, oropharynx and hypopharynx . No pathologically enlarged cervical lymphadenopathy or suspicious foci of increased uptake in the v isualized head or neck. Chest: Mild atelectasis at the bilateral lung bases most prominent at the right costophrenic angle. No suspi cious or PSMA avid pulmonary nodules, pneumonia or pleural effusion. Cardiomegaly. No pericardial eff usion. Vasculature is normal in caliber. Calcified mediastinal lymph nodes consistent with old granul omatous disease. No pathologically enlarged or PSMA avid thoracic lymphadenopathy. Abdomen/pelvis/proximal thighs: Physiologic renal accumulation and excretion of activity in the kidneys, bladder and along portions o f ureters. Prostate has been resected with no evident soft tissue density or increased PSMA activity aside from the excreted activity in the urine to suggest locally recurrent disease. Normal degree and slightly heterogenous pattern of increased uptake throughout the liver and spleen without radiologic correlate or dominant PSMA avid lesion. Cholecystectomy clips at the gallbladder fossa. The pancreas and bilateral adrenal glands are normal. Moderate uptake scattered throughout the bowels with typica l duodenal and proximal jejunal predominance and without radiologic correlate, also likely physiologi c. No other abnormal foci of increased uptake or pathologically enlarged lymphadenopathy in the abdom en, pelvis or proximal thighs. Musculoskeletal: No suspicious lytic, blastic or PSMA neck avid bone lesions. Small focus of soft tissue uptake at the right antecubital fossa likely extravasation at the site of injection. IMPRESSION: 1. Status post prostatectomy. No lesions suspicious for residual, locally recurrent or metastatic pro state cancer. Reviewed, dictated and finalized at location A. TECHNICIAN IMPRESSION: 1. Status post prostatectomy. No lesions suspicious for residual, locally recur rent or metastatic prostate cancer.
== END 2022-08-06 12:10 | disposition home or self-care (01) ==
PROVIDERS: PCP Internal Medicine; Visit Provider Urology
DX: C61 Malignant neoplasm of prostate (principal)
CPT/HCPCS: 78815; A9595

== ENCOUNTER 2022-12-07 01:02 | Day surgery (SDC) | payer MEDICARE, SELFPAY ==
[2022-11-20 14:29] VITALS: BMI 29.0
--- NOTE | 2022-12-06 17:47 | PM.HPGS ---
History of Present Illness History of Present Illness Consent: Risks, benefits, and alternatives have been discussed and questions answered. Patient agrees to proceed with procedure. Chief complaint: neoplasm screening Narrative: Raghavendra Nogueira is a 72 year old male Referred for colon cancer screening. His last colonoscopy 12 years ago was unremarkable except for diverticular disease. Review of Systems Review of Systems: All systems reviewed & are unremarkable except as noted in HPI and below PMFSH Past Medical History Medical History Benign essential hypertension Benign prostatic hyperplasia Chronic kidney disease, stage 3 Elevated PSA Erectile dysfunction Gout History of prostate cancer Hypothyroidism (acquired) Insulin dependent type 2 diabetes mellitus Mixed hyperlipidemia Nonischemic cardiomyopathy Pneumonia Rib pain on right side Right-sided chest wall pain Vitamin D deficiency Surgical History Surgical History History of bilateral carpal tunnel release History of bilateral knee replacement History of cholecystectomy History of prostatectomy Family History Family History Sibling Family history of diabetes mellitus in first degree relative Diabetes mellitus Sibling Cancer Other Hypertension Social History Social History Social History: Surrogate medical decision maker: Gardenia Stacyan, spouse. Code status: Full code. Smoking status: Never smoker Second hand tobacco smoke exposure: No Alcohol intake: current Drinks per week: 1 Alcohol use details: RARELY Substance use: never Substance use type: does not use Lack of Transportation: No Lack of Food: Never True Current Housing: I Have Housing Concerned About Future Housing: No Difficulty Paying Gas/Electric Bills: No Difficulty Paying for Meds: No Currently Unemployed: No Education: Bachelor's Degree Difficulty w/ Childcare or Family Care: No Living arrangements: with family Additional living arrangements comments: The patient lives in [place] with his . Occupation/Education: retired Additional occupation/education comments: Retired from the [employer]. Spiritual care concerns: No Meds Home Medications and Allergies Home Medications Medication Instructions Recorded Confirmed Type aspirin 81 mg tablet,delayed 81 mg PO DAILY 05/19/19 11/21/22 History release (Adult Low Dose Aspirin) vitamin B complex 1 tablet PO DAILY 05/19/19 11/21/22 History cholecalciferol (vitamin D3) 50 50 mcg PO DAILY 07/03/21 11/21/22 History mcg (2,000 unit) capsule sodium chloride 0.65 % nasal spray 1 spray intranasal Q6HR PRN 09/20/21 11/21/22 Rx aerosol (Saline Mist) Congestion #44 mL sacubitril 97 mg-valsartan 103 mg 1 tablet PO BID 12/08/21 11/21/22 History tablet (Entresto) febuxostat 40 mg tablet 40 mg PO DAILY 04/20/22 11/21/22 History latanoprost 0.005 % eye drops 1 drp LEFT EYE HS 04/20/22 11/21/22 History fluticasone propionate 50 2 spray intranasal QAM #16 grams 04/25/22 11/21/22 Rx mcg/actuation nasal spray,suspension metformin 1,000 mg tablet 1,000 mg PO QPM 05/01/22 11/21/22 History carvedilol 25 mg tablet 12.5 mg PO Q12H 30 days #30 tabs 05/02/22 11/21/22 Rx tamsulosin 0.4 mg capsule 0.4 mg PO DAILY #30 caps 05/02/22 11/21/22 Rx furosemide 20 mg tablet 20 mg PO DAILY #90 tabs 07/23/22 11/21/22 Rx spironolactone 25 mg tablet 25 mg PO DAILY #90 tabs 07/23/22 11/21/22 Rx atorvastatin 40 mg tablet 40 mg PO DAILY 11/21/22 11/21/22 History empagliflozin 10 mg tablet 10 mg PO DAILY 11/21/22 11/21/22 History (Jardiance) insulin degludec 200 unit/mL (3 60 unit (0.3 mL) subcut QAM #9 mL 11/29/22 Rx mL) subcutaneous pen levothyroxine 112 mcg tablet 112 mcg PO
[2022-12-07 08:41] LABS: Glucose Point of Care 134 mg/dl (65-105)
[2022-12-07 08:44] VITALS: BP 138/61; PULSE 50; RESP 16; TEMP 36.4; O2SAT 100; BMI 27.6
[2022-12-07] MEDS: LACTATED RINGERS 1,000 ML 150 ML IV CONT (08:57)
--- NOTE | 2022-12-07 09:01 | WPDANESEPPF ---
Anes - Initial Pre Proc Eval Procedure: Operation Date: 12/07/22 09:30 Proposed Procedures p Screening Colonoscopy - Cornel Luis MD Date/Time: 12/07/22 09:01 Surgeon: Cornel Luis MD Pre Op Diagnosis: neoplasm screening Patient Data Age: 72 Gender: M Height: 1.93 m Weight: 102.9 kg Last Vital Signs Temp 97.5 F L 12/07/22 08:44 Pulse 50 L 12/07/22 08:44 Resp 16 12/07/22 08:44 BP 138/61 12/07/22 08:44 Pulse Ox 100 12/07/22 08:44 O2 Del Method Room Air 12/07/22 08:44 Allergies Allergy/AdvReac Type Severity Reaction Status Date / Time No Known Allergies Allergy Verified 11/21/22 12:10 Home Medications Medication Instructions Recorded Confirmed Type aspirin 81 mg tablet,delayed 81 mg PO DAILY 05/19/19 11/21/22 History release (Adult Low Dose Aspirin) vitamin B complex 1 tablet PO DAILY 05/19/19 11/21/22 History cholecalciferol (vitamin D3) 50 50 mcg PO DAILY 07/03/21 11/21/22 History mcg (2,000 unit) capsule sodium chloride 0.65 % nasal spray 1 spray intranasal Q6HR PRN 09/20/21 11/21/22 Rx aerosol (Saline Mist) Congestion #44 mL sacubitril 97 mg-valsartan 103 mg 1 tablet PO BID 12/08/21 11/21/22 History tablet (Entresto) febuxostat 40 mg tablet 40 mg PO DAILY 04/20/22 11/21/22 History latanoprost 0.005 % eye drops 1 drp LEFT EYE HS 04/20/22 11/21/22 History fluticasone propionate 50 2 spray intranasal QAM #16 grams 04/25/22 11/21/22 Rx mcg/actuation nasal spray,suspension metformin 1,000 mg tablet 1,000 mg PO QPM 05/01/22 11/21/22 History carvedilol 25 mg tablet 12.5 mg PO Q12H 30 days #30 tabs 05/02/22 11/21/22 Rx tamsulosin 0.4 mg capsule 0.4 mg PO DAILY #30 caps 05/02/22 11/21/22 Rx furosemide 20 mg tablet 20 mg PO DAILY #90 tabs 07/23/22 11/21/22 Rx spironolactone 25 mg tablet 25 mg PO DAILY #90 tabs 07/23/22 11/21/22 Rx atorvastatin 40 mg tablet 40 mg PO DAILY 11/21/22 11/21/22 History empagliflozin 10 mg tablet 10 mg PO DAILY 11/21/22 11/21/22 History (Jardiance) insulin degludec 200 unit/mL (3 60 unit (0.3 mL) subcut QAM #9 mL 11/29/22 Rx mL) subcutaneous pen levothyroxine 112 mcg tablet 112 mcg PO DAILY #90 tabs 11/29/22 Rx Laboratory Tests 12/07/22 08:37 POC Capillary Glucose 134 H mg/dl (65-105) Patient hx anesthesia problems: none Family hx anesthesia problems: none Results Review: All pre-operative results and documents have been reviewed as part of the pre-operative evaluation. [facility] Past Medical History Medical History Benign essential hypertension Benign prostatic hyperplasia Chronic kidney disease, stage 3 Elevated PSA Erectile dysfunction Gout History of prostate cancer Hypothyroidism (acquired) Insulin dependent type 2 diabetes mellitus Mixed hyperlipidemia Nonischemic cardiomyopathy Pneumonia Rib pain on right side Right-sided chest wall pain Vitamin D deficiency Surgical History Surgical History History of bilateral carpal tunnel release History of bilateral knee replacement History of cholecystectomy History of prostatectomy Family History Family History Sibling Family history of diabetes mellitus in first degree relative Diabetes mellitus Sibling Cancer Other Hypertension Social History Social History Social History: Surrogate medical decision maker: Gardenia Siegel, spouse. Code status: Full code. Smoking status: Never smoker Second hand tobacco smoke exposure: No Alcohol intake: current Drinks per week: 1 Alcohol use details: RARELY Substance use: never Substance use type: does not use Lack of Transportation: No Lack of Food: Never True Current Housing: I Have Housing Concerned About Future Housing: No Difficulty Paying Ga
[2022-12-07 09:47] VITALS: BP 126/78; PULSE 53; RESP 16; O2SAT 97
[2022-12-07 09:57] VITALS: BP 120/65; PULSE 52; RESP 16; O2SAT 99
[2022-12-07 10:07] VITALS: BP 118/56; PULSE 46; RESP 16; O2SAT 100
== END 2022-12-07 10:25 | disposition home or self-care (01) ==
PROVIDERS: PCP Internal Medicine; Visit Provider Internal Medicine Gastroenterology
PROC: 0DJD8ZZ Inspection of Lower Intestinal Tract, Via Natural or Artificial Opening Endoscopic (ICD-10-PCS; CPT 45378; principal; 2022-12-07 09:30)
DX: Z12.11 Encounter for screening for malignant neoplasm of colon (principal); K57.30 Diverticulosis of large intestine without perforation or abscess without bleeding; K64.8 Other hemorrhoids; I12.9 Hypertensive chronic kidney disease with stage 1 through stage 4 chronic kidney disease, or unspecified chronic kidney disease; E11.22 Type 2 diabetes mellitus with diabetic chronic kidney disease; N18.30 Chronic kidney disease, stage 3 unspecified; M10.9 Gout, unspecified; E03.9 Hypothyroidism, unspecified; E78.2 Mixed hyperlipidemia; I42.8 Other cardiomyopathies; E55.9 Vitamin D deficiency, unspecified; Z85.46 Personal history of malignant neoplasm of prostate; Z79.82 Long term (current) use of aspirin; Z79.84 Long term (current) use of oral hypoglycemic drugs; Z79.4 Long term (current) use of insulin
CPT/HCPCS: G0121; 82948; J2704; J7120

== ENCOUNTER 2023-02-12 12:51 | Outpatient (CLI) | payer MEDICARE, SELFPAY ==
[2023-02-12 13:18] LABS: Appearance Urine Clear (Clear); Bilirubin Urine Negative (Negative); Blood Urine Negative (Negative); Color Urine Yellow (Yellow); Glucose Urine UA 3+ mg/dL (Negative); Ketones Urine Negative (Negative); Leukocyte Esterase Ur Negative LEU/UL (Negative); Nitrate Urine Negative (Negative); Protein Urine Negative (Negative); Specific Grav Ur 1.013 (1.001-1.035); Urobilinogen Urine 0.2 mg/dL (<2.0)
[2023-02-12 13:27] LABS: Add Urine Microscopic? YES
[2023-02-12 13:30] LABS: Hemoglobin A1C 6.9 % (<5.7)
== END 2023-02-12 12:52 | disposition home or self-care (01) ==
LOC: ANHLAB 12:53
PROVIDERS: PCP Internal Medicine; Visit Provider Internal Medicine
DX: N18.30 Chronic kidney disease, stage 3 unspecified (principal); E11.9 Type 2 diabetes mellitus without complications; Z79.4 Long term (current) use of insulin
CPT/HCPCS: 36415; 81001; 83036

== ENCOUNTER 2023-02-22 15:33 | Outpatient (CLI) | payer MEDICARE, SELFPAY ==
--- NOTE | ~2023-02-22 | US_ITS ---
EXAMINATION: US renal BI DATE: 02/22/2023 16:12 INDICATION: N18.30 - Chronic kidney disease, stage 3 unspecified TECHNIQUE: Multiple grayscale and Doppler ultrasound images of the kidneys were obtained. COMPARISON: CT abdomen pelvis 11/15/2016 FINDINGS: The right kidney measures 10.5 x 4.4 x 4.9 cm. The left kidney measures 11.1 x 5.0 x 4.2 cm. The kidn eys demonstrate slightly increased parenchymal echogenicity. Simple left renal cysts There is no hydr onephrosis. The bladder is only partially distended and therefore incompletely evaluated. IMPRESSION: Medical renal disease. Simple left renal cyst. Reviewed, dictated and finalized at location K.
== END 2023-02-22 15:34 | disposition home or self-care (01) ==
PROVIDERS: PCP Internal Medicine; Visit Provider Internal Medicine
DX: N18.30 Chronic kidney disease, stage 3 unspecified (principal); N28.1 Cyst of kidney, acquired
CPT/HCPCS: 76775

== ENCOUNTER 2023-03-13 09:24 | Outpatient (CLI) | payer MEDICARE, SELFPAY ==
--- NOTE | ~2023-03-13 | MR_ITS ---
EXAMINATION: MR pelvis wo/w con DATE: 03/13/2023 10:29 INDICATION: Prostate cancer TECHNIQUE: Magnetic resonance imaging (MRI) of the pelvis was performed without intravenous contrast. Fullfield sequences of the pelvis included axial and coronal T2-weighted SS FSE, axial, sagittal and coronal 2D FIESTA, axial 2D FIESTA FS, axial SSFSE-IR ELIAS, axial dual-echo T1-weighted FSPGR, axial and coronal T1 weighted LAVA, 3D axial T2 Cube, axial diffusion-weighted SE with apparent diffusion c oefficient (ADC) maps. Postcontrast sequences included a time course axial T1-weighted LAVA and sagit gary and coronal T1-weighted LAVA. COMPARISON: PET/CT dated 08/06/[address] abdomen and pelvis dated 11/15/2016 FINDINGS: Status post prostatectomy with multiple likely postoperative foci of susceptibility artifact at surro unding the prostatectomy bed. No evident nodular soft tissue opacity prostatectomy bed to suggest loc al recurrence. Diffuse mild bladder wall thickening with trabeculated mucosal surface likely related to chronic outlet obstruction. Visualized portions of bowels including the appendix are normal. No pa thologically enlarged pelvic or inguinal lymphadenopathy. Small ovoid nonenhancing, low signal intens ity bone island at the right greater trochanter which is without interval change since 2017. Bone mar row signal is otherwise unremarkable. IMPRESSION: 1. Status post prostatectomy with no evident locally recurrent or metastatic disease. Reviewed, dictated and finalized at location A. IMPRESSION: 1. Status post prostatectomy with no evident locally recurrent or metastatic di sease.
== END 2023-03-13 09:25 | disposition home or self-care (01) ==
PROVIDERS: PCP Internal Medicine; Visit Provider Radiology Radiation Oncology
DX: C61 Malignant neoplasm of prostate (principal)
CPT/HCPCS: 72197; A9577

== ENCOUNTER 2023-10-18 13:43 | Emergency (ER) | payer MEDICARE, SELFPAY ==
[2023-10-18] VITALS (17 sets, daily range): BP systolic 125–155; BP diastolic 51–100; PULSE 47–119; RESP 6–31; TEMP 36.4; O2SAT 98–100
--- NOTE | ~2023-10-18 | CT_ITS ---
EXAMINATION: CT abdomen pelvis w con DATE: 10/18/2023 15:24 INDICATION: Left lower quadrant abdominal pain for 2 days TECHNIQUE: Computed tomography (CT) of the abdomen and pelvis was performed with 100 CC Omnipaque 350 intravenous contrast. Automated exposure control and iterative reconstruction technique were employe d. Exam dose: 743.20 mGy-cm total exam DLP. COMPARISON: 11/15/2016 CT abdomen pelvis FINDINGS: The lung bases are clear of infiltrate or consolidation. Normal heart size. Coronary artery calcification. No pericardial or pleural effusion. Status post cholecystectomy. The common bile duct measures up to 1.2 cm diameter which may be due to the postcholecystectomy state . No hepatic, splenic, pancreatic space-occupying mass lesion or pancreatic duct dilatation. Approximately 1 cm right adrenal mass; in the absence of any known malignancy, this is likely an adre nal adenoma. Normal left adrenal gland. 1.3 a 1.5 cm left renal cysts. No suspicious renal space-occupying mass lesion or urinary tract calcu wily or hydroureteronephrosis nephrosis is noted. There is moderate diffuse thickening of the urinary bladder wall. Prostate gland is not visualized. Diverticulosis of left and to a greater extent right colon. There is soft tissue thickening and inflammatory stranding around a diverticulum of the distal descen ding colon in the left lower quadrant, with thickening of the bowel wall in this region, consistent w ith acute diverticulitis. No abscess is identified. Normal appendix. No bowel obstruction or intraperitoneal free air. Fat-containing umbilical hernia and a small adjacent supraumbilical ventral abdominal wall hernia. No suspicious osteolytic or osteoblastic lesions. IMPRESSION: Acute diverticulitis of the distal descending colon Diverticulosis of left internal greater extent right colon Status post cholecystectomy Left renal cysts Probable small right adrenal adenoma Probable prostatectomy Reviewed, dictated and finalized at Location A. Reviewed, dictated and finalized at location A.
--- NOTE | 2023-10-18 14:26 | ED.GENADULT ---
HPI - General Adult General Chief complaint: Abdominal Pain Stated complaint: left side abd pain Time Seen by Provider: 10/18/23 14:20 History of Present Illness HPI narrative: 73-year-old male with prior abdominal surgeries for ?my prostate? and gallbladder surgery presents for evaluation of left-sided abdominal pain on and off x1 week. He spoke with his PCP who instructed him to come to the ER and make sure he does not have diverticulitis. Related Data Home Medications Medication Instructions Recorded Confirmed vitamin B complex 1 tablet PO DAILY 05/19/19 08/01/23 sacubitril 97 mg-valsartan 103 mg 1 tablet PO BID 12/08/21 08/01/23 tablet (Entresto) empagliflozin 10 mg tablet 10 mg PO DAILY 11/21/22 08/01/23 (Jardiance) cholecalciferol (vitamin D3) 50 4,000 unit PO DAILY 02/07/23 08/01/23 mcg (2,000 unit) capsule insulin degludec 200 unit/mL (3 100 unit subcut QAM 03/06/23 08/01/23 mL) subcutaneous pen Allergies Allergy/AdvReac Type Severity Reaction Status Date / Time No Known Allergies Allergy Verified 10/18/23 14:06 Review of Systems Review of Systems: CONSTITUTIONAL: Denies fever, chills, or sweats. EYES: Denies visual changes, redness, or discharge. ENT: Denies rhinorrhea, congestion, sore throat, or otalgia. CARDIOVASCULAR: Denies chest pain, palpitations, or edema. RESPIRATORY: Denies cough or dyspnea. GASTROINTESTINAL: Denies abdominal pain, nausea, vomiting, or diarrhea. GENITOURINARY: Denies dysuria or hematuria. SKIN: Denies rash or itching. MUSCULOSKELETAL: Denies back pain, joint pain, or myalgia. NEUROLOGIC: Denies headache, numbness, or weakness. PSYCHIATRIC: Denies anxiety or depression. [facility] Past Medical History Medical History (Updated 10/18/23 @ 17:30 by Bandar Guillermo, ) Acute exacerbation of congestive heart failure Benign essential hypertension BMI 30.0-30.9,adult Chest pain Chronic kidney disease, stage 3 Diarrhea Elevated PSA Erectile dysfunction Gout History of prostate cancer Hypothyroidism (acquired) Insulin dependent type 2 diabetes mellitus Mixed hyperlipidemia Nasal congestion Need for pneumococcal vaccine Nonischemic cardiomyopathy Pneumonia Rib pain on right side Right-sided chest wall pain Vitamin D deficiency Surgical History Surgical History History of bilateral carpal tunnel release History of bilateral knee replacement History of cholecystectomy History of prostatectomy S/P cholecystectomy S/P joint replacement Family History Family History Sibling Family history of diabetes mellitus in first degree relative Diabetes mellitus Sibling Cancer Other Hypertension Social History Social History Social History: Surrogate medical decision maker: Gardenia Siegel, spouse. Code status: Full code. Smoking status: Never smoker Second hand tobacco smoke exposure: No Alcohol intake: current Drinks per week: 1 Alcohol use details: RARELY Substance use: never Substance use type: does not use Do You Feel Safe in your Home?: Yes Lack of Transportation: No Lack of Food: Never True Current Housing: I Have Housing Concerned About Future Housing: No Difficulty Paying Gas/Electric Bills: No Difficulty Paying for Meds: No Currently Unemployed: No Education: Bachelor's Degree Difficulty w/ Childcare or Family Care: No Living arrangements: with family Additional living arrangements comments: The patient lives in [place] with his . Occupation/Education: retired Additional occupation/education comments: Retired from the [employer]. Gender identity (if verbalized by the patient): Male Spiritual care concerns: No Exam Narrative: GENERAL: Well-appearing, well-nourished, and in no acute distress. HEAD
[2023-10-18 14:59] LABS: Basophils Percent Auto 0.5 % (0.2-1.2); Eosinophils Absolute Auto 0.1 K/mm3 (0-0.3); Eosinophils Percent Auto 2.2 % (0-4.4); Hematocrit 37.8 % (42.0-52.0); Hemoglobin 12.6 g/dL (14.0-18.0); Lymphocytes Absolute Auto 0.76 K/mm3 (0.9-3.2); Lymphocytes Percent Auto 18.4 % (18.3-44.2); Mean Corpuscular HGB Conc 33.3 g/dl (32-36); Mean Corpuscular Hemoglobin 29.6 pg (26-34); Mean Corpuscular Volume 88.9 fl (80-100); Mean Platelet Volume 10.8 fl (7.4-10.4); Monocytes Absolute Auto 0.4 K/mm3 (0.1-0.6); Monocytes Percent Auto 10.6 % (2.6-8.5); Neutrophils Absolute Auto 2.8 K/mm3 (1.3-6.7); Neutrophils Percent Auto 68.3 % (45.5-73.1); Platelet Count Result 168 k/mm3 (150-375); Red Blood Count 4.25 M/mm3 (4.6-6.20); Red Cell Distribution Width 14.5 % (11.5-14.5); White Blood Count 4.1 K/mm3 (4.5-10.0)
[2023-10-18 15:00] LABS: Appearance Urine Clear (Clear); Bilirubin Urine Negative (Negative); Blood Urine Negative (Negative); Color Urine Yellow (Yellow); Glucose Urine UA 3+ mg/dL (Negative); Ketones Urine Negative (Negative); Leukocyte Esterase Ur Negative LEU/UL (Negative); Nitrate Urine Negative (Negative); Protein Urine Negative (Negative); Specific Grav Ur 1.017 (1.001-1.035); Urobilinogen Urine 0.2 mg/dL (<2.0)
[2023-10-18 15:07] LABS: Add Urine Microscopic? NO
[2023-10-18 15:09] LABS: Alanine Aminotransferase 18 U/L (6-50); Alkaline Phosphatase 70 U/L (38-126); Anion Gap 6 mmol/L (4-12); Aspartate Amino Transferase 20 U/L (17-59); Blood Urea Nitrogen 28 mg/dL (9-20); Calcium 9.3 mg/dL (8.4-10.2); Carbon Dioxide 23 mmol/L (22-30); Chloride 111 mmol/L (98-107); Estimated CRCL calculation 56 ml/min; Estimated Glomerular Filt Rate 56; Glucose 159 mg/dL (65-110); Potassium 4.3 mmol/L (3.4-5.0); Sodium 140 mmol/L (137-145)
--- NOTE | 2023-10-18 16:01 | ECG_ITS ---
SEE SCANNED COPY FOR CONFIRMED REPORT MTDD
--- NOTE | 2023-10-18 16:02 | PC.NURSE ---
Notified MD Guillermo of patient heart rate dropping to 38. EKG obtained at this time.
[2023-10-18 17:20] LABS: Free T4 Free Thyroxine 1.35 ng/mL (0.78-2.19)
[2023-10-18 17:31] LABS: Thyroid Stimulating Hormone 0.655 uIU/mL (0.465-4.680)
== END 2023-10-18 17:45 | disposition home or self-care (01) ==
PROVIDERS: Emergency Provider Emergency Medicine; PCP Internal Medicine
DX: K57.32 Diverticulitis of large intestine without perforation or abscess without bleeding (principal); E11.22 Type 2 diabetes mellitus with diabetic chronic kidney disease; I13.0 Hypertensive heart and chronic kidney disease with heart failure and stage 1 through stage 4 chronic kidney disease, or unspecified chronic kidney disease; N18.30 Chronic kidney disease, stage 3 unspecified; I50.9 Heart failure, unspecified; I42.8 Other cardiomyopathies; E55.9 Vitamin D deficiency, unspecified; E78.2 Mixed hyperlipidemia; E03.9 Hypothyroidism, unspecified; M10.9 Gout, unspecified; Z96.653 Presence of artificial knee joint, bilateral; Z85.46 Personal history of malignant neoplasm of prostate; Z87.01 Personal history of pneumonia (recurrent); Z90.49 Acquired absence of other specified parts of digestive tract; Z90.79 Acquired absence of other genital organ(s); Z79.4 Long term (current) use of insulin; K57.30 Diverticulosis of large intestine without perforation or abscess without bleeding; N28.1 Cyst of kidney, acquired; R00.1 Bradycardia, unspecified; I49.1 Atrial premature depolarization; R94.31 Abnormal electrocardiogram [ECG] [EKG]
CPT/HCPCS: 36415; 74177; 80053; 81003; 84439; 84443; 85025; 93005; 99284; Q9967

== ENCOUNTER 2024-03-21 08:42 | Outpatient (CLI) | payer MEDICARE, SELFPAY ==
[2024-03-21 10:49] LABS: Prostate Specific Antigen < 0.1 ng/mL (< OR = 4.0)
== END 2024-03-21 08:43 | disposition home or self-care (01) ==
LOC: ANHLAB 08:44
PROVIDERS: PCP Internal Medicine; Visit Provider Urology
DX: C61 Malignant neoplasm of prostate (principal)
CPT/HCPCS: 36415; 84153

== ENCOUNTER 2024-05-01 12:13 | Outpatient (CLI) | payer MEDICARE, SELFPAY ==
--- NOTE | ~2024-05-01 | XR_ITS ---
EXAMINATION: XR hip RT min 2V DATE: 05/01/2024 12:42 INDICATION: Right hip pain. TECHNIQUE: 2 views of right hip were obtained. COMPARISON: None. FINDINGS: Alignment is normal. No fracture. There is mild right hip osteoarthritis. IMPRESSION: 1. Mild right hip osteoarthritis. Reviewed, dictated and finalized at location A.
== END 2024-05-01 12:14 | disposition home or self-care (01) ==
LOC: ANHIMG 12:14
PROVIDERS: PCP Internal Medicine; Visit Provider Internal Medicine
DX: M16.11 Unilateral primary osteoarthritis, right hip (principal)
CPT/HCPCS: 73502

== ENCOUNTER 2024-11-17 07:56 | Outpatient (CLI) | payer MEDICARE, SELFPAY ==
--- OUTSIDE RECORDS SUMMARY | 2024-11-17 08:02 | XMS_ITS | Clinical Summary ---
Author Organization [facility] [employer] Address [address] 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 This disclosure is being madepursuant to the Care Everywhere program and may not contain all information available regarding this patient. Last updated 03/28/18.404 Found! [employer] Allergies No known active allergies Immunizations Immunization Administration Dates Next Due INFLUENZA VACCINE, HIGH-DOSE , QUADR. (FLUZONE HIGH-DOSE QUADRIVALENT; 65Y+), 0.7 ML ([id number]) 03/31/2019,04/02/2017 Social History Tobacco Use Types Packs/Day Years Used Date Smoking Tobacco: Never Assessed Sex and Gender Information Value Date Recorded Sex Assigned at Not on file Legal Sex Male 3:57 PM CDT Gender Identity Not on file Sexual Orientation Not on file Plan of Treatment Health Maintenance Due Date Last Done Comments COLOGUARD (AGES 45-75) - COL ON CA SCREENING 1952 COLON MONITORING 1952 COLONOSCOPY - COLON CA SCREENING 1952 CT COLONOGRAPHY - COLON CA SCREENING 1952 Colorectal Cancer Screening 1952 FIT - COLON CA SCREENING 1952 FLEX SIG - COLON CA SCREENING 1952 LIPID TESTING 1952 HEPATITIS C SCREENING 01/20/1970 DTAP/TDAP/TD VACCINES (1 - Tdap) 01/24/1971 PNEUMOCOCCAL VACCINE 50+ (1 of 1 - PCV) 01/24/2002 ZOSTER VACCINE (1 of 2) 01/24/2002 COVID-19 VACCINE (1 - 2023-2 5 season) 2024 DEPRESSION SCREENING 07/08/2024 INFLUENZA VACCINE (Season Ended) 2025 03/31/2019, 04/02/2017 Respiratory Syncytial Virus (RSV) Vaccine Pt: or over 60 yrs (1 - 1-dose 75+ series) 01/24/2027 HEPATITIS B VACCINE Aged Out No longe r eligible based on patient's age to complete this topic HIB VACCINE Aged Out No longer eligi ble based on patient's age to complete this topic HPV VACCINE Aged Out No longer eligi ble based on patient's age to complete this topic MENINGOCOCCAL (Group B) VACCINE SHARED DECISION-MAKING Aged Out No longer eligible based on patient's age to complete this topic MENINGOCOCCAL GROUPS A/C/Y/W VACCINE Aged Out No longer eligible b ased on patient's age to complete this topic Insurance AETNA AETNA Care Teams 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
--- OUTSIDE RECORDS SUMMARY | 2024-11-17 08:03 | XMS_ITS | Clinical Summary ---
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 Gender Identity Not on file Sexual Orientation Not on file Plan of Treatment Health Maintenance Due Date Last Done Comments DIABETES ANNUAL FOOT EXAM 01/24/1970 DIABETES ANNUAL RETINAL EXAM 01/24/1970 DIABETES HBA1C Q 6 MONTHS 01/24/1970 DIABETES MICROALBUMIN ANNUAL SCREEN 01/24/1970 LDL CHOLESTEROL ANNUAL 01/24/1970 DTAP/TDAP/TD VACCINES (1 - Tdap) 01/24/1971 COLORECTAL SCREENING 01/24/1997 Colorectal Cancer Screening 01/24/1997 FIT-DNA Q 3 years 01/24/1997 FIT/FOBT Q 1 year 01/24/1997 Flex Sig/CT Colonography Q 5 years 01/24/1997 ZOSTER VACCINE (1 of 2) 01/24/2002 RSV VACCINE (60+ or ) (1 - Risk 60-74 years 1-dose series) 2012 INFLUENZA VACCINE (#1) 2024 1, 02/24/2020, 03/31/2019, Additional history exists PNEUMOCOCCAL VACCINE 50+ YEARS Completed 03/31/2019 , 03/27/2018
--- OUTSIDE RECORDS SUMMARY | 2024-11-17 08:03 | XMS_ITS | Clinical Summary ---
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 Gender Identity Not on file Sexual Orientation Not on file Plan of Treatment Health Maintenance Due Date Last Done Comments Colorectal Cancer Screening Colonoscopy (10 Years) 1950 Hepatitis C 01/24/1970 DTaP, Tdap and Td Vaccines ( 1 - Tdap) 01/24/1971 Zoster Vaccines (1 of 2) 01/24/2002 Annual Medicare Wellness Visit 01/24/2017 Pneumococcal Vaccine: 50+ Ye ars (2 of 2 - PPSV23) 03/27/2019 03/27/2018 COVID-19 Vaccine (2 - 2023-2 5 season) 2024 08/29/2020 RSV Immunization or 60+ Years (1 - 1-dose 75+ series) 01/24/2027 Meningococcal B Vaccine Aged Out No l onger eligible based on patient's age to complete this topic Meningococcal Vaccine Aged Out No ben chris eligible based on patient's age to complete this topic RSV Immunizations Under 20 Months Aged Out No longer eligible based on patient's age to complete this topic Insurance [employer] Care Teams Desizing Machine Operator Relationship Specialty Start Date End Date Torsten Sheth MD [address] [place] [id number] PCP - General INTERNAL MEDICINE 09/08/20
--- OUTSIDE RECORDS SUMMARY | 2024-11-17 08:03 | XMS_ITS | Encounter Summary ---
Author Organization [facility] Address 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 [address] [email or web address] Cardiac Catheterization Comprehensive Report Patient: Raghavendra Nogueira Study ID: [id number] Gender: M : 1950 Age: 58 years Race: 2 Room: Bed: Height: 76 in ( 193 cm ) Study Date: February 17, 2008 Patient status: Outpatient Weight: 238 lb ( 108.2 kg ) Access. #: [id number] POC: Attending MD: Paul Performing MD: Paul Indications and History: INDICATIONS: Abnormal stress test. PRIOR DIAGNOSTIC TEST RESULTS: Previous exercise nuclear stress test performed on February 06, 2008 was positive. Procedure(s) Performed: DIAGNOSTIC PROCEDURES: Left heart catheterization. Left ventriculography. Selective coronary angiography. Study Conclusions: SUMMARY - Global left ventricular function was normal. EF estimated by contrast ventriculography was 60 %. - There was no angiographic evidence for coronary artery disease. RECOMMENDATIONS There is no evidence of obstruction to explain the reported symptoms; the stress test appears to be a false positive. Following bedrest and subsequent ambulation, the patient will be discharged if feeling well. The patient has been instructed to follow-up with you (the referring physician) in the near future. COMPLICATIONS: There were no complications. Description of Procedure: BACKGROUND INFORMATION: The procedures, together with their attendant risks and alternatives, and conscious sedation were explained to the patient and informed consent was obtained. Contrast ( Optiray, 110 ml ) was administered during the procedure. The patient was given 50.000 mL (IV) IV Solutions. The patient was given 3.000 l/min OXYGEN. The patient was given 2.000 mg VERSED (IVP). NARRATIVE: - Right femoral artery access. Cardiac structures: VENTRICULOGRAPHY: There were no left ventricular regional wall motion abnormalities. Global left ventricular function was normal. EF estimated by contrast ventriculography was 60 %. Coronary and graft angiography: The coronary circulation is co-dominant. LEFT ANTERIOR DESCENDING AND BRANCHES: LAD: Angiographically normal. LEFT CIRCUMFLEX AND BRANCHES: Circumflex: Angiographically normal. The vessel was large. RIGHT CORONARY AND BRANCHES: RCA: Angiographically normal. The vessel was medium size (co-dominant). Angiography showed no evidence of disease. IMPRESSIONS: There was no angiographic evidence for coronary artery disease. Condition1: --- Pressure mmHg Rate dPdt AO 146-S/ 74-D, 103-M 57 BPM LV 154-S/ 8-BD, 18-ED 51 BPM 1600 PBa 139-S/ 73-D, 98-M 57 BPM PBv 155-S/ 6-BD, 16-ED 52 BPM 1600 Prepared and Electronically Authenticated Magno Garcia MD Confirmed February 17, 2008 11:04:52 Procedure Note Provider, Historical - 02/17/2008 [address] [address] [place] [address] [email or web address] Cardiac Catheterization Comprehensive Report Patient: Raghavendra Nogueira Study ID: [id number] Gender: Jacqui : 1950 Age: 58 years Race: 2 Room: Bed: Height: 76 in ( 193 cm ) Study Date: February 17, 2008 Patient status: Outpatient Weight: 238 lb ( 108.2 kg ) Access. #: [id number] POC: Attending MD: Paul Beasley MD: Paul Indications and History: INDICATIONS: Abnormal stress test. PRIOR DIAGNOSTIC TEST RESULTS: Previous exercise nuclear stress test performed on February 06, 2008 was positive. Procedure(s) Performed: DIAGNOSTIC PROCEDURES: Left heart catheterization. Left ventriculography. Selective coronary angiography. Study Conclusions: SUMMARY - Global left ventricular function was normal. EF estimated by contrast ventriculography was 60 %. - There was no angiographic evidence for coronary artery disease. RECOMMENDATIONS There is no evidence of obstruction to explain the reported symptoms;the stress test appears to be a false positive. Following bedrest and subsequent ambulation, the patient will be discharged if feeling well.The patient has been instructed to follow-up with you (the referringphysician) in the near future. COMPLICATIONS: There were no complications. Description of Procedure: BACKGROUND INFORMATION: The procedures, together with their attendant risks and alternatives,and conscious sedation were explained to the patient and informed consentwas obtained. Contrast ( Optiray, 110 ml ) was administered during the procedure. The patient was given 50.000 mL (IV) IV Solutions. Thepatient was given 3.000 l/min OXYGEN. The patient was given 2.000 mg VERSED(IVP). NARRATIVE: - Right femoral artery access. Cardiac structures: VENTRICULOGRAPHY: There were no left ventricular regional wall motion abnormalities.Global left ventricular function was normal. EF estimated by contrast ventriculography was 60 %. Coronary and graft angiography: The coronary circulation is co-dominant. LEFT ANTERIOR DESCENDING AND BRANCHES: LAD: Angiographically normal. LEFT CIRCUMFLEX AND BRANCHES: Circumflex: Angiographically normal. The vessel was large. RIGHT CORONARY AND BRANCHES: RCA: Angiographically normal. The vessel was medium size (co-dominant). Angiography showed no evidence of disease. IMPRESSIONS: There was no angiographic evidence for coronary artery disease. Condition1: --- Pressure mmHg Rate dPdt AO 146-S/ 74-D, 103-M 57 BPM LV 154-S/ 8-BD, 18-ED 51 BPM 1600 PBa 139-S/ 73-D, 98-M 57 BPM PBv 155-S/ 6-BD, 16-ED 52 BPM 1600 Prepared and Electronically Authenticated Magno Garcia MD Confirmed February 17, 2008 11:04:52 Magno Garcia MD FLUOROSCOPY ORDERABLES Final Result INTERFACE SYSTEM Refer to clinic/hospital department documented in this encounter Visit Diagnoses Diagnosis Chronic ischemic heart disease, unspecified documented in this encounter
[2024-11-17 13:12] LABS: Basophils Percent Auto 0.6 % (0.2-1.2); Eosinophils Absolute Auto 0.2 K/mm3 (0-0.3); Eosinophils Percent Auto 4.1 % (0-4.4); Hemoglobin 13.3 g/dL (14.0-18.0); Immature Granulocyte Absolute 0.01 K/mm3 (0.00-0.031); Immature Granulocyte Percent A 0.2 % (0-0.5); Lymphocytes Absolute Auto 1.09 K/mm3 (0.9-3.2); Lymphocytes Percent Auto 23.5 % (18.3-44.2); Mean Corpuscular HGB Conc 31.7 g/dl (32-36); Mean Corpuscular Hemoglobin 29.4 pg (26-34); Mean Corpuscular Volume 92.7 fl (80-100); Mean Platelet Volume 11.5 fl (7.4-10.4); Monocytes Absolute Auto 0.8 K/mm3 (0.1-0.6); Monocytes Percent Auto 16.6 % (2.6-8.5); Neutrophils Absolute Auto 2.6 K/mm3 (1.3-6.7); Platelet Count Result 191 k/mm3 (150-375); Red Blood Count 4.53 M/mm3 (4.6-6.20); Red Cell Distribution Width 14.9 % (11.5-14.5); White Blood Count 4.6 K/mm3 (4.5-10.0)
[2024-11-17 13:56] LABS: Influenza A QL RT-PCR Negative (Negative); Influenza B QL RT-PCR Negative (Negative); RSV RNA, RT-PCR Negative (Negative); SARS-CoV-2 RNA PCR Negative (Negative)
== END 2024-11-17 07:57 | disposition home or self-care (01) ==
PROVIDERS: PCP Internal Medicine; Visit Provider Internal Medicine
DX: R50.9 Fever, unspecified (principal); R53.83 Other fatigue; Z20.822 Contact with and (suspected) exposure to COVID-19
CPT/HCPCS: 36415; 85025; 87637

== ENCOUNTER 2024-11-17 08:10 | Outpatient (CLI) | payer MEDICARE, SELFPAY ==
--- NOTE | ~2024-11-17 | XR_ITS ---
XR chest 2V Ordering provider: Torsten Sheth MD History: 74 years Male with . Cough x 1 week . Comparison: July 18, 2022 FINDINGS: MEDIASTINUM: The cardiac silhouette is not enlarged. Left bipolar pacemaker. LUNGS: No infiltrates, effusions or pneumothorax. OTHER: No free air under the diaphragm. IMPRESSION: No acute cardiopulmonary pathology. Reviewed, dictated and finalized at location A.
== END 2024-11-17 08:11 | disposition home or self-care (01) ==
PROVIDERS: PCP Internal Medicine; Visit Provider Internal Medicine
DX: R05.9 Cough, unspecified (principal)
CPT/HCPCS: 71046

== ENCOUNTER 2025-03-15 14:36 | Outpatient (CLI) | payer MEDICARE, SELFPAY ==
--- OUTSIDE RECORDS SUMMARY | 2025-03-15 14:41 | XMS_ITS | Encounter Summary ---
Author Organization [facility] Address 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 [address] [email or web address] Cardiac Catheterization Comprehensive Report Patient: Raghavendra Nogueira Study ID: [id number] Gender: M : 1950 Age: 58 years Race: 2 Room: Bed: Height: 76 in ( 193 cm ) Study Date: February 17, 2008 Patient status: Outpatient Weight: 238 lb ( 108.2 kg ) Access. #: [id number] POC: Attending MD: Paul Performing MD: Paul [...] 11:04:52 Procedure Note Provider, Historical - 02/17/2008 [address] [address] [place] [address] [email or web address] Cardiac Catheterization Comprehensive Report Patient: Raghavendra Nogueira Study ID: [id number] Gender: Jacqui : 1950 Age: 58 years Race: 2 Room: Bed: Height: 76 in ( 193 cm ) Study Date: February 17, 2008 Patient status: Outpatient Weight: 238 lb ( 108.2 kg ) Access. #: [id number] POC: Attending MD: Paul Beasley MD: Paul [...]
--- OUTSIDE RECORDS SUMMARY | 2025-03-15 14:41 | XMS_ITS | Clinical Summary ---
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
--- OUTSIDE RECORDS SUMMARY | 2025-03-15 14:41 | XMS_ITS | Clinical Summary ---
Author Organization [facility] Address [place] [address] Care Team Providers Care Food And Beverage Associate Name Role Phone Torsten Sheth MD Primary Care Provider [phone] Allergies No known active allergies Medications fluticasone propionate (FLONASE) 50 mcg/actuation nasal spray Administer 1 spray into each nostril as needed for allergies 09/22/19 22 Active furosemide (LASIX) 20 mg tabletIndicatio ns:Edema Take 1 tablet (20 mg total) by mouth every morning 09/22/19 22 Active aspirin 81 mg enteric coated tabletIndicatio ns:Myocardial Reinfarction Prevention Take 1 tablet (81 mg total) by mouth every morning Active vitamin B complex capsuleIndicati ons:Vitamin Deficiency Take 1 capsule by mouth daily as needed Active blood glucose diagnostic strip by other route as directed Active atorvastatin (LIPITOR) 40 mg tabletIndicatio ns:hyperlipidem ia Take 1 tablet (40 mg total) by mouth every morning Active levothyroxine (SYNTHROID) 112 mcg tabletIndicatio ns:hypothyroidi sm Take 1 tablet (112 mcg total) by mouth trimming inspector before breakfast Active metFORMIN (GLUCOPHAGE) 1,000 mg tabletIndicatio ns:type 2 diabetes mellitus Take 1 tablet (1,000 mg total) by mouth nightly Active amoxicillin 500 mg tablet Take by mouth as needed Dental appts 09/30/19 22 Active TRESIBA 200 unit/mL (3 mL) pen for injectionIndica tions:type 2 diabetes mellitus Inject 0.3 mL (60 Units total) under the skin every morning 09/12/19 22 Active Jardiance 10 mg tabletIndicatio ns:Heart Failure,type 2 diabetes mellitus Take 1 tablet (10 mg total) by mouth every morning 10/12/19 22 Active latanoprost (XALATAN) 0.005 % ophthalmic solutionIndicat ions:open angle glaucoma Administer 1 drop into both eyes nightly 03/27/20 24 Active febuxostat (ULORIC) 40 mg tabletIndicatio ns:prevention of acute gout attack Take 1 tablet (40 mg total) by mouth every morning Active cholecalciferol , vitamin D3, (VITAMIN D3 ORAL)Indication s:supplement Take 1 capsule by mouth daily as needed Active carvediloL (COREG) 6.25 mg tablet Take 1 tablet (6.25 mg total) by mouth 2 (two) times a day with meals 180 tablet 2 08/19/19 25 2025 Active sacubitriL-vals cherie (ENTRESTO) 97-103 mg tabletIndicatio ns:chronic heart failure Take 1 tablet by mouth 2 (two) times a day 180 tablet 1 12/15/19 25 Active eplerenone (INSPRA) 25 mg tablet TAKE 1 TABLET DAILY; PLEASEDISCONTINUE THE SPIRONOLACTONE 25. 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 At that time [facility] without any obstruction of CAD. He was started on GDMT with improvement of EF to 35-40%. He follows with Dr. Freeman in [facility]. - Admitted after ICD insertion - Resume home ASA, statin, entresto and spironolactone and lasix - Not on BB in setting of bradycardia - repeat CXR with no acute finding - S/p ICD - Extra Strength Tylenol may be taken every 6 hours as needed for pain. - Notify the physician office at [phone] immediately if you develop abrupt pain or swelling. If you feel there is an urgent matter, call 911 or go to the emergency room. - Call the office at [phone] with any routine questions or concerns. If you are unable to reach your doctor please call [facility] information assurance manager at [phone]. He or she will contact the physician on the Electrophysiology service to assist you. CKD (chronic kidney disease) 06/10/2024 Assessment & Plan (06/10/2024 1:57 PM BONE PULLER): No baseline on record. Here with creatinine 1.7. - Follow up repeat creatinine in am - Avoid nephrotoxic agents. DM (diabetes mellitus) 06/10/2024 Assessment & Plan (06/10/2024 1:58 PM BONE PULLER): Home Tresiba and metformin. - Hold home oral antidiabetics - SSI while inpatient. - Follow up Hgb A1C Dilated cardiomyopathy 2022 Need for prophylactic antibiotic 05/26/2015 Arthritis of knee 05/18/2015 Surgical follow-up care 01/13/2013 Never smoked tobacco 08/23/2011 Cholecystitis 08/20/2011 Encounters Date Type Department Care Team Description 02/16/2025 11:00 AM CDT Office Visit [facility] [address] [place] [address] Anibal Amaya MD Dilated cardiomyopathy (HCC) (Primary Dx); Need for lipid screening 02/16/2025 Telephone [facility] [address] [place] [address] Radhika Cid MA POCT Lipid 01/13/2025 Orders Only [facility]iology [facility] Medical Office Building [address] [place] [address] Bulmaro Freeman MD 12/14/2024 Telephone [facility] [address] [place] [address] Anibal Amaya MD from Last 3 Months Immunizations Immunization Administration Dates Next Due Influenza, Quad, Adjuvantate d, Intramuscular 05/16/2021 Influenza, Quadrivalent, Hig h Dose, Preservative Free, Intrr 02/24/2020 Influenza, Quadrivalent, Spl it, Intramuscular 04/27/2016 Influenza, Trivalent, High D ose, Split, Preservative Free, Intramuscular 03/31/2019,03/31/2019,03/27/2018,04/02,04/02/2017 Influenza, Trivalent, IM (MDV) 05/11/2015 Influenza, Unspecified 04/21/2014,04/06/2013, Pneumococcal Conjugate PCV 13 03/27/2018 Pneumococcal Polysaccharide PPV23 03/31/2019 Surgical History Surgery Date Site/Laterality Comments CARDIAC CATHETERIZATION pt unsure of date TOTAL KNEE ARTHROPLASTY 07/08/2013 - 07/07/2014 Right CHOLECYSTECTOMY 07/08/2020 - 07/07/2021 CATARACT EXTRACTION W/ INTRAOCULAR LENS IMPLANT 07/08/2021 - 07/07/2022 Bilateral PROSTATE SURGERY 07/08/2021 - 07/07/2022 TOTAL KNEE ARTHROPLASTY 07/08/2014 - 07/07/2015 Left CARPAL TUNNEL RELEASE Bilateral 2000's CARDIAC PACEMAKER PLACEMENT 06/10/2024 ICD Medical History Medical History Date Comments Aftercare following joint re placement surgery Aftercare following joint re placement - (Added by TW Conv) Shortness of breath CHF (congestive heart failure) (HCC) Pulmonary edema Diabetes mellitus (HCC) Chest pain Hypertension Thyroid disease Chronic kidney disease Family History Medical History Relation Name Comments Hypertension Brother 1 Family history of hypertension - (Added by TW Conv) Diabetes Brother 2 Family history of diabetes mellitus - (Added by TW Conv) Cancer Brother 3 Family history of malignant neoplasm - (Added by TW Conv) Gout Brother 4 Family history of gout - (Added by TW Conv) Gout Daughter Family history of gout - (Added by TW Conv) Arthritis Mother Diabetes Sister 1 Family history of diabetes mellitus - (Added by TW Conv) Cancer Sister 2 Family history of malignant neoplasm - (Added by TW Conv) Gout Sister 3 Family history of gout - (Added by TW Conv) Relation Name Status Comments Brother 1 Brother 2 Brother 3 Brother 4 Daughter Father Mother Alive Sister 1 Sister 2 Sister 3 Social History Tobacco Use Types Packs/Day Years Used Date Smoking Tobacco: Never Smokeless Tobacco: Never Tobacco Cessation:Counseling Given: Not Answered AUDIT-C Answer Date Recorded Q1: How often do you have a drink containing alc ohol? 2-4 times a month 06/10/2024 Q2: How many drinks containi ng alcohol do you have on a typical day when you are drinking? 1 or 2 06/10/2024 Q3: How often do you have si x or more drinks on one occasion? Never 06/10/2024 Personal Safety Answer Date Recorded Have you ever been in or are you currently in a harmful physical or emotional relationship or is someone making you feel afraid or unsafe? Denies 06/10/2024 Sex and Gender Information Value Date Recorded Sex Assigned at Not on file Legal Sex Male 11:32 PM BONE PULLER Gender Identity Male 09/21/2024 8:09 AM CDT Sexual Orientation Straight 09/21/2024 8: 09 AM CDT Obstetrics History Last Filed Vital Signs Vital Sign Reading Time Taken Comments Blood Pressure 122/64 02/16/2025 10:50 AM CDT Pulse 86 02/16/2025 10:50 AM CDT Temperature 36.5 C (97.7 F) 06/11/2024 7:36 AM BONE PULLER Respiratory Rate 16 06/11/2024 7:36 AM BONE PULLER Oxygen Saturation 98% 02/16/2025 10: 50 AM CDT Inhaled Oxygen Concentration - - Weight 100.7 kg (222 lb 1.6 oz) 025 10:50 AM CDT Height 193 cm (6' 4) 02/16/2025 10:50 AM CDT Body Mass Index 27.03 02/16/2025 10:50 AM CDT Plan of Treatment Health Maintenance Due Date Last Done Comments Albumin Creatinine Ratio, Urine 1952 Colon Cancer Screening-Colonoscopy 1950 Depression Screening 1952 Hepatitis C Screening 1950 Prostate Cancer Screening-PSA 1952 Dilated Eye Exam 1952 Foot Exam 1952 DTaP/Tdap/Td Vaccine (1 - Tdap) 01/24/1963 Hepatitis B Screening 01/24/1970 Zoster Vaccine (1 of 2) 01/24/2002 Well Visit 65+ 01/24/2017 Covid-19 Vaccine (4 - 2023-2 5 season) 2024 08/14/2021, 09/26/2020, 08/29/2020 Hemoglobin A1C 12/09/2024 06/10/2024 Influenza Vaccine (#1) 2025 , 02/24/2020, 03/31/2019, Additional history exists eGFR 06/10/2025 06/10/2024, 06/10/2024 Fall Risk Assessment 06/11/2025 06/11/2024 Lipid Panel 02/16/2026 02/16/2025, 06/0 10/2023, 09/01/2022, Additional history exists Pneumococcal vaccine 65+ Completed 03/31/2019, 03/09 Medical Devices Implanted Type Area Assembly Machine Offbearer Device Identifier Shelf Expiration Date Model / Serial / Lot [employer] Inc Chauncey Dr Icd Mri Surescan Df4 [id number] - [id number] - [id number] Implanted:Qty: 1 on 06/10/2024 by Rishabh Hernandez MD at [facility] ICD Left: Chest Wall [employer] Inc 10/02/2024 [id number] / [id number] / Med[employer] Inc Sprint Quattro Secure 62cm Tripolar Screw In Extendable [id number] - [id number] - [id number] Implanted:Qty: 1 on 06/10/2024 by Rishabh Hernandez MD at [facility] Lead Right: Ventricle Med[employer]onic Inc 03/12/2026 [id number] / [id number] / Med[employer] Inc Capsurefix Novus 6.2fr 2mm 52cm Bipolar Screw In Implantable Latex Free [id number] - [id number] - [id number] Implanted:Qty: 1 on 06/10/2024 by Rishabh Hernandez MD at [facility] Lead Right: Atria Med[employer] Inc 04/02/2026 [id number] / [id number] / Procedures Procedure Name Priority Date/Time Associated Diagnosis Comments POCT LIPID PANEL Routine 02/16/2025 1:12 PM CDT Need for lipid screening DEVICE CHECK - REMOTE Routine 01/13/2025 12:52 AM CDT HEMOGLOBIN A1C Routine 06/10/2024 10:18 PM BONE PULLER EGFR Routine 06/10/2024 6:50 AM BONE PULLER from Last 3 Months or Most Recently Relevant to Health Maintenance Results * (ABNORMAL) POCT lipid panel (02/16/2025 1:12 PM CDT) Cholesterol, POC 114 <200 MG/DL HDL, POC 45 >=40 mg/dL Triglycerides, POC 190(A) <=149 mg/dL LDL Cholesterol POC 32 <=129 mg/dL Chol/HDL Ratio, POC 0.7 NONE Non-HDL Cholesterol, POC 70 NONE mg/dL Cholesterol Total, POC 114 30 - 199 mg/dL Capillary blood 02/16/2025 1 :12 PM CDT Anibal Amaya MD POINT OF CARE TEST ORDER DORETHA Final Result * DEVICE CHECK - REMOTE (01/13/2025 12:52 AM CDT) Anatomical Region Laterality Modality Other 01/13/2025 12:5 2 AM CDT Narrative 02/02/2025 10:39 AM CDT Interpretation Summary: Battery and Leads (BL) Normal parameters noted on battery and lead(s) --- 10.7 years remaining (this is an estimate based on prior usage) Presenting Rhythm (WI) Atrial Pacing-Ventricular Sensing (AP-VS) --- rate 76 Arrhythmic events (AE) Nonsustained VT event(s) identified --- One NS-VT episode. Duration: 2 seconds. Rate: 226 Transmission Information (TI) Device Summary Report Procedure Note Bulmaro Freeman MD - 02/02/2025 Interpretation Summary: Battery and Leads (BL) Normal parameters noted on battery and lead(s) --- 10.7 years remaining(this is an estimate based on prior usage) Presenting Rhythm (WI) Atrial Pacing-Ventricular Sensing (AP-VS) --- rate 76 Arrhythmic events (AE) Nonsustained VT event(s) identified --- One NS-VT episode. Duration: 2seconds. Rate: 226 Transmission Information (TI) Device Summary Report us Bulmaro Freeman MD CV CARDIAC SERVICES PRO CEDURES Final Result * (ABNORMAL) Hemoglobin A1c (06/10/2024 10:18 PM BONE PULLER) Hgb A1C 7.1(H) 4.0 - 5.6 % Estimated Average Glucose 157 mg/dL [facility] Comment: The ADA recommends reporting an estimated Average Glucose (eAG) with all Hemoglobin A1c results using the equation derived from a study of 507 normal and diabetic adults. Minority populations were underrepresented and children were not included. (Diabetes Care 2020; 43(S1): S66-S76). The eAG is not equivalent to a fasting glucose. Blood 06/10/2024 10:1 8 PM BONE PULLER 06/10/2024 10:39 PM BONE PULLER Miroslava Medrano MD LAB BLOOD ORDERABLES Final Res ult [facility] [place] [address] * (ABNORMAL) eGFR (06/10/2024 6:50 AM BONE PULLER) eGFR 42(L) >=60 mL/min/1. 73 m2 Comment: Interpretive Data Reference Interval Normal >/= 90 mL/min/1.73m2 Mildly decreased* 60 - 89 mL/min/1.73m2 Mildly to moderately decreased 45 - 59 mL/min/1.73m2 Moderately to severely decreased 30 - 44 mL/min/1.73m2 Severely decreased 15 - 29 mL/min/1.73m2 Kidney Failure < 15 mL/min/1.73m2 *Relative to young adult level Estimated glomerular filtration rate is determined by the 2020 CKD-EPI equation recommended by the National Kidney Foundation (A Unifying Approach to GFR Estimation: Recommendations of the NKF-ASK Task Force on Reassessing the Inclusion of Race in Diagnosing Kidney Disease, KRYSTALSN 2020). The CKD-EPI equation should not be used for patients with unstable renal function and has not been validated in children and those over 70. Current interpretive data was last reviewed 2021. Blood 06/10/2024 6:50 AM BONE PULLER 06/10/2024 6:54 AM BONE PULLER us Bulmaro Freeman MD LAB BLOOD ORDERABLES Fi nal Result [facility] [place] [address] from Last 3 Months or Most Recently Relevant to Health Maintenance Insurance [employer] MEDICARE AETNA MEDICARE Advance Directives For more information, please contact: [phone] Documents on File Type Date Recorded Patient House Builder Expl anation ADVANCE DIRECTIVE 06/15/2024 10:57 AM MINGO CHRISTINE * Full Code (Latest Code Status on File) Date Activated Date Inactivated Comments 06/10/2024 10:58 AM 06/11/2024 2:19 PM Care Teams Food And Beverage Associate Relationship Specialty Start Date End Date Torsten Sheth MD [address] [facility] [address] [place] [address] PCP - General Internal Medicine 10/03/21
--- OUTSIDE RECORDS SUMMARY | 2025-03-15 14:41 | XMS_ITS | Clinical Summary ---
Author Organization [facility] Address [address] [place] [address] Care Team Providers Care Supervisor Pyrotechnic Loading Name Role Phone Torsten Sheth MD Primary Care Provider [phone] Social History Tobacco Use Types Packs/Day Years Used Date Smoking Tobacco: Never Assessed Sex and Gender Information Value Date Recorded Sex Assigned at Not on file Legal Sex Male 9:09 AM [employer] AIRCREW[employer] ME[employer] Gender Identity Not on file Sexual Orientation [...] PPSV23) 03/27/2019 03/27/2018 COVID-19 Vaccine (2 - 2024-2 6 season) 2025 08/29/2020 RSV Immunization or 60+ Years (1 [...] complete this topic Insurance AETNA Care Teams Supervisor Pyrotechnic Loading Relationship Specialty Start Date End Date Torsten Sheth MD [address] [place] [id number] PCP - General INTERNAL MEDICINE 09/08/20
--- OUTSIDE RECORDS SUMMARY | 2025-03-15 14:41 | XMS_ITS | Clinical Summary ---
Author Organization [facility] [employer] Address [address] [place] [address] Care Team Providers Care Forestry Workers Name Role Phone Torsten Sheth MD Primary Care Provider [phone] Source Comments [facility] [employer],non-owned Affiliates and Associated Physician Practices is amultiple site organization consisting of ambulatory clinics and hospital sitesin [place], [place], [place] and [place]. This disclosure is being madepursuant to the Care Everywhere program and may not contain all information available regarding this patient. Last updated 18.[employer] Allergies No known active allergies Immunizations Immunization [...] 01/24/2002 ZOSTER VACCINE (1 of 2) 01/24/2002 DEPRESSION SCREENING 07/08/2024 COVID-19 VACCINE (1 - 2023-2 5 season) 2025 INFLUENZA VACCINE (#1) 2025 9, 04/02/2017 Respiratory Syncytial Virus (RSV) Vaccine Pt: [...] age to complete this topic Insurance AETNA [facility] Address: [facility] [id number] [place] [phone] AETNA Care Teams Forestry Workers Relationship Specialty Start Date End Date Torsten Sheth MD [address] [place] [id number] PCP - General 05/15/22
[2025-03-15 19:36] LABS: Influenza A QL RT-PCR Negative (Negative); Influenza B QL RT-PCR Negative (Negative); RSV RNA, RT-PCR Negative (Negative); SARS-CoV-2 RNA PCR Positive (Negative)
== END 2025-03-15 14:37 | disposition home or self-care (01) ==
LOC: ANHGOSHLAB 14:37
PROVIDERS: PCP Internal Medicine; Visit Provider Internal Medicine
DX: U07.1 COVID-19 (principal)
CPT/HCPCS: 87637